=== PATIENT | male | born 1960 | race Caucasian/White ===

== ENCOUNTER 2017-09-20 01:21 | Emergency (ER) | payer OTHER ==
[2017-09-20] MEDS ORDERED: predniSONE 20 MG TAB PO STA (01:30)
[2017-09-20] MEDS ORDERED: IPRATROPIUM-ALBUTEROL 3 ML NEB INHALATION STA (01:30)
[2017-09-20] MEDS ORDERED: ALBUTEROL NEBULIZED 2.5 MG/3 ML INHALATION STA (01:30)
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
[2017-09-20 01:45] LABS: Basophils # (A) 0.2 k/uL (0-0.2); Basophils % (A) 2 %; Eosinophils # (A) 0.6 k/uL (0-0.7); Eosinophils % (A) 5 %; HCT 48.6 % (39.0-53.0); HGB 15.3 gm/dL (13.0-17.5); Lymphocytes # (A) 1.2 k/uL (1.0-4.8); Lymphocytes % (A) 10 %; MCH 27.9 pg (25.0-35.0); MCHC 31.5 g/dL (31.0-37.0); MCV 88.7 fL (80.0-100.0); Mean Platelet Volume 7.2; Monocytes # (A) 1.4 k/uL (0-1.0); Monocytes % (A) 11 %; Neutrophils # (A) 8.3 k/uL (1.3-7.7); Neutrophils % (A) 68 %; Platelet Count 273 k/uL (150-450); RBC 5.48 m/uL (4.30-5.90); RDW 14.5 % (11.5-15.5); WBC 12.2 k/uL (3.8-10.6)
[2017-09-20 01:51] LABS: D-Dimer 0.3 mg/L FEU (<0.60)
[2017-09-20 01:55] LABS: Partial Thromboplastin Time 23.5 sec (22.0-30.0); Prothrombin Time 9.8 sec (9.0-12.0)
[2017-09-20 01:56] LABS: ALT 49 U/L (21-72); AST 37 U/L (17-59); Albumin 4.3 g/dL (3.5-5.0); Alkaline Phosphatase 84 U/L (38-126); Anion Gap 12 mmol/L; Blood Urea Nitrogen 15 mg/dL (9-20); Calcium 9.6 mg/dL (8.4-10.2); Carbon Dioxide 32 mmol/L (22-30); Chloride 100 mmol/L (98-107); Glucose 117 mg/dL (74-99); Potassium 4.4 mmol/L (3.5-5.1); Sodium 144 mmol/L (137-145); Total Bilirubin 0.5 mg/dL (0.2-1.3); Total Protein 8.4 g/dL (6.3-8.2)
--- NOTE | 2017-09-20 02:14 | XR ---
EXAMINATION TYPE: XR chest 1V portable DATE OF EXAM: 09/20/2017 COMPARISON: 06/24/2016 HISTORY: Cough and congestion TECHNIQUE: Single frontal view of the chest is obtained. FINDINGS: There is no heart failure nor confluent pneumonic infiltrate. There is slight coarsening o f interstitial markings at the lung bases. There is no pleural effusion. There are chest leads. IMPRESSION: Mild fibrotic changes at the lung bases. No acute lung disease. No change.
[2017-09-20 02:44] LABS: Appearance,Urine Clear (Clear); Bilirubin,Urine Negative (Negative); Blood,Urine Small (Negative); Color,Urine Yellow; Glucose,Urine (UA) Negative (Negative); Hyaline Casts,Urine 88 /lpf (0-2); Ketones,Urine Negative (Negative); Leukocyte Esterase,Urine Negative (Negative); Mucus,Urine Rare /hpf; Nitrite,Urine Negative (Negative); PH, Urine 7.5 (5.0-8.0); Protein,Urine 2+ (Negative); RBC,Urine 10 /hpf (0-5); Specific Gravity,Urine 1.015 (1.001-1.035); Urobilinogen,Urine <2.0 mg/dL (<2.0)
[2017-09-20 04:18] VITALS: BP 142/80; PULSE 87; RESP 22; TEMP 98.2
== END 2017-09-20 04:17 | disposition home or self-care (01) ==
LOC: EC 01:21
DX: J44.9 Chronic obstructive pulmonary disease, unspecified (principal); F17.200 Nicotine dependence, unspecified, uncomplicated; Z79.51 Long term (current) use of inhaled steroids
CPT/HCPCS: 36415; 94640; 93005; 85379; 83880; 80053; 84484; 85025; 85610; 85730; 81001; 87502; 71045; 99285; J7512

== ENCOUNTER 2017-09-22 20:19 | Inpatient (IN) | payer OTHER ==
[2017-09-22] MEDS ORDERED: methylPREDNISolone SOD SUCCI 125 MG/2 ML VIAL IV STA (20:31)
[2017-09-22] MEDS ORDERED: SODIUM CHLORIDE 0.9% 500 ML IV STA (20:31)
[2017-09-22] MEDS ORDERED: MAGNESIUM SULFATE-D5W PMX 1 GM in DEXTROSE/WATER 1 100ML.BAG IVPB STA (20:31)
[2017-09-22] MEDS ORDERED: ALBUTEROL NEBULIZED 2.5 MG/3 ML INHALATION STA (20:31)
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
[2017-09-22 21:01] LABS: Basophils # (A) 0.1 k/uL (0-0.2); Basophils % (A) 1 %; Eosinophils # (A) 0.1 k/uL (0-0.7); Eosinophils % (A) 1 %; HCT 47.5 % (39.0-53.0); HGB 14.9 gm/dL (13.0-17.5); Lymphocytes # (A) 1.4 k/uL (1.0-4.8); Lymphocytes % (A) 10 %; MCH 28.2 pg (25.0-35.0); MCHC 31.4 g/dL (31.0-37.0); MCV 89.8 fL (80.0-100.0); Mean Platelet Volume 7.4; Monocytes # (A) 0.8 k/uL (0-1.0); Monocytes % (A) 6 %; Neutrophils % (A) 82 %; Platelet Count 296 k/uL (150-450); RBC 5.29 m/uL (4.30-5.90); RDW 14.7 % (11.5-15.5); WBC 13.5 k/uL (3.8-10.6)
[2017-09-22 21:12] LABS: ALT 57 U/L (21-72); AST 51 U/L (17-59); Albumin 4.2 g/dL (3.5-5.0); Alkaline Phosphatase 78 U/L (38-126); Anion Gap 10 mmol/L; Blood Urea Nitrogen 25 mg/dL (9-20); Calcium 9.4 mg/dL (8.4-10.2); Carbon Dioxide 31 mmol/L (22-30); Chloride 101 mmol/L (98-107); Glucose 142 mg/dL (74-99); Potassium 4.1 mmol/L (3.5-5.1); Sodium 142 mmol/L (137-145); Total Bilirubin 0.4 mg/dL (0.2-1.3); Total Protein 8.2 g/dL (6.3-8.2)
[2017-09-22 21:17] LABS: Creatine Kinase 886 U/L (55-170)
[2017-09-22 21:22] LABS: Partial Thromboplastin Time 23.4 sec (22.0-30.0); Prothrombin Time 9.8 sec (9.0-12.0)
[2017-09-22 21:30] LABS: Troponin I <0.012 ng/mL (0.000-0.034)
[2017-09-22 21:32] LABS: Creatine Kinase MB 3.9 ng/mL (0.0-2.4)
--- NOTE | 2017-09-22 21:32 | XR ---
EXAMINATION TYPE: XR chest 2V DATE OF EXAM: 09/22/2017 COMPARISON: Prior chest x-ray 09/20/2017 HISTORY: Difficulty breathing TECHNIQUE: Frontal and lateral views of the chest are obtained. FINDINGS: The patient is rotated. There are overlying cardiac leads. Some minimal blunting of the rig ht costophrenic angle suspected. There is no focal air space opacity or pneumothorax seen. The card iac silhouette size is within normal limits. Hyperinflation may be indicative of underlying COPD. Th e osseous structures are intact. IMPRESSION: Difficult to exclude small right effusion.
[2017-09-23] MEDS ORDERED: ACETAMINOPHEN TAB 500 MG TAB PO PRN (01:11)
[2017-09-23] MEDS ORDERED: ALPRAZolam 0.25 MG TAB PO PRN (01:11)
[2017-09-23] MEDS ORDERED: HYDROcodone/APAP 5-325MG 1 EACH TAB PO PRN (01:11)
[2017-09-23] MEDS: LEVOFLOXACIN 500MG-D5W PMX 500 MG in DEXTROSE/WATER 1 100ML.BAG IVPB SCH ×2 (02:12→22:13)
[2017-09-23] MEDS: methylPREDNISolone SOD SUCCI 125 MG/2 ML VIAL IV SCH ×5 (02:14→23:53)
[2017-09-23 05:43] LABS: Appearance,Urine Clear (Clear); Bilirubin,Urine Negative (Negative); Blood,Urine Small (Negative); Color,Urine Yellow; Glucose,Urine (UA) Negative (Negative); Ketones,Urine Negative (Negative); Leukocyte Esterase,Urine Negative (Negative); Mucus,Urine Rare /hpf; Nitrite,Urine Negative (Negative); PH, Urine 6.5 (5.0-8.0); Protein,Urine 1+ (Negative); RBC,Urine 6 /hpf (0-5); Specific Gravity,Urine 1.015 (1.001-1.035); Squamous Epithelial Cell,Urine <1 /hpf (0-4); Urobilinogen,Urine <2.0 mg/dL (<2.0)
[2017-09-23 06:03] LABS: Amphetamine Screen,Urine Not Detected (NotDetected); Barbiturate Screen,Urine Not Detected (NotDetected); Benzodiazepines Screen,Urine Not Detected (NotDetected); Cocaine Screen,Urine Not Detected (NotDetected); Methadone Screen, Urine Not Detected (NotDetected); Opiate Screen,Urine Not Detected (NotDetected); Oxycodone Screen, Urine Not Detected (NotDetected); Phencyclidine Screen,Urine Not Detected (NotDetected); Tricyclic Antidepressant,Urine Not Detected (NotDetected); Urn Cannabinoid Scrn Not Detected (NotDetected)
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
[2017-09-23] MEDS: BUDESONIDE 1 MG/2 ML NEBU INHALATION SCH ×2 (07:33→19:26)
[2017-09-23] MEDS: FORMOTEROL FUMARATE 20 MCG/2 ML NEBU INHALATION SCH ×2 (07:33→19:26)
[2017-09-23] MEDS: IPRATROPIUM-ALBUTEROL 3 ML NEB INHALATION SCH ×4 (07:33→19:26)
[2017-09-23 07:37] LABS: Glucose,Whole Blood 129 mg/dL (75-99)
[2017-09-23] MEDS: LISINOPRIL 10 MG TAB PO SCH (07:42)
[2017-09-23] MEDS: MULTIVITAMINS, THERA 1 EACH TAB PO SCH (07:42)
[2017-09-23] MEDS: HEPARIN SODIUM,PORCINE 5,000 UNIT/ML 1 ML VIAL SQ SCH ×2 (07:42→22:14)
[2017-09-23] MEDS: PANTOPRAZOLE 40 MG TABLET PO SCH (07:42)
[2017-09-23] MEDS: NICOTINE 21MG/24HR PATCH TRANSDERM SCH (07:42)
[2017-09-23] MEDS: amLODIPine 10 MG TAB PO SCH (07:42)
[2017-09-23] MEDS ORDERED: RX INFO: IV CONTRAST WAS GIVEN 1 EACH MISC MISCELLANE PRN (09:55)
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
--- NOTE | 2017-09-23 11:47 | CT ---
EXAMINATION TYPE: CT chest angio for PE DATE OF EXAM: 09/23/2017 COMPARISON: Radiograph 09/22/2017 HISTORY: 57-year-old male shortness of breath, evaluate for pneumonia or pulmonary embolus TECHNIQUE: Contiguous axial scanning of the chest performed with IV Contrast, patient injected with 1 00 mL of Omnipaque 350. Coronal/sagittal MIP reconstructions performed. CT DLP: 577 mGycm Automated exposure control for dose reduction was used. FINDINGS: The heart is normal size without pericardial effusion. Mild coronary artery calcifications are presen t. Mild atherosclerotic calcifications within the ascending aorta and aortic arch. There is conventional arterial vessel branching anatomy. Satisfactory opacification of the pulmonary arterial system without evidence for pulmonary embolus. No thoracic lymphadenopathy by CT size criteria. There is some patchy opacity peripheral right base and mild diffuse bronchial wall thickening. Mild c entrilobular emphysema in the upper lungs. No pleural effusion. Low density of the liver suggests hepatic steatosis. Bones: No osseous destructive process. IMPRESSION: 1. NO EVIDENCE FOR PULMONARY EMBOLUS. 2. SOME PATCHY ATELECTASIS VERSUS PNEUMONIA AT THE PERIPHERAL RIGHT BASE. CORRELATE FOR ANY INFECTIOU S RESPIRATORY SIGNS/SYMPTOMS. 3. COPD WITH MILD EMPHYSEMA. 4. HEPATIC STEATOSIS.
[2017-09-23] MEDS: INSULIN ASPART 100 UNIT/ML 1 ML 10 ML VIAL SQ SCH ×3 (12:38→22:14)
[2017-09-23 12:47] LABS: Glucose,Whole Blood 124 mg/dL (75-99)
[2017-09-23 17:25] LABS: Glucose,Whole Blood 221 mg/dL (75-99)
[2017-09-23 19:38] LABS: Hemoglobin A1C 6.1 % (4.0-6.0)
[2017-09-23 20:45] LABS: Glucose,Whole Blood 158 mg/dL (75-99)
[2017-09-23 21:53] LABS: Alternaria alternata IgE <0.10 kU/L; Birch IgE <0.10 kU/L; Cat Epith & Dander IgE <0.10 kU/L; Cockroach IgE <0.10 kU/L; Dermato. farinae IgE <0.10 kU/L; Dog Dander IgE <0.10 kU/L; Elm IgE <0.10 kU/L; Maple (Box Elder) IgE <0.10 kU/L; Oak IgE <0.10 kU/L; Ragweed,Common IgE <0.10 kU/L; Red Top (Bentgrass) IgE <0.10 kU/L
[2017-09-23] MEDS: MELATONIN 3 MG TABLET PO SCH (22:13)
[2017-09-23] MEDS: MONTELUKAST 10 MG TAB PO SCH (22:14)
[2017-09-24] MEDS: methylPREDNISolone SOD SUCCI 125 MG/2 ML VIAL IV SCH ×2 (05:44→11:07)
[2017-09-24] MEDS: IPRATROPIUM-ALBUTEROL 3 ML NEB INHALATION SCH ×4 (07:28→20:04)
[2017-09-24] MEDS: FORMOTEROL FUMARATE 20 MCG/2 ML NEBU INHALATION SCH ×2 (07:29→20:04)
[2017-09-24] MEDS: BUDESONIDE 1 MG/2 ML NEBU INHALATION SCH ×2 (07:29→20:04)
[2017-09-24 08:10] LABS: Glucose,Whole Blood 140 mg/dL (75-99)
[2017-09-24] MEDS: PANTOPRAZOLE 40 MG TABLET PO SCH (08:14)
[2017-09-24] MEDS: INSULIN ASPART 100 UNIT/ML 1 ML 10 ML VIAL SQ SCH ×4 (08:14→21:12)
[2017-09-24] MEDS: NICOTINE 21MG/24HR PATCH TRANSDERM SCH (08:15)
[2017-09-24] MEDS: HEPARIN SODIUM,PORCINE 5,000 UNIT/ML 1 ML VIAL SQ SCH ×2 (08:15→21:12)
[2017-09-24] MEDS: amLODIPine 10 MG TAB PO SCH (08:15)
[2017-09-24] MEDS: LISINOPRIL 10 MG TAB PO SCH (08:15)
[2017-09-24] MEDS: MULTIVITAMINS, THERA 1 EACH TAB PO SCH (08:15)
[2017-09-24 08:30] LABS: Basophils % (A) 0 %; Eosinophils % (A) 0 %; HCT 50.2 % (39.0-53.0); Lymphocytes # (A) 1.1 k/uL (1.0-4.8); Lymphocytes % (A) 6 %; MCH 27.3 pg (25.0-35.0); MCHC 29.8 g/dL (31.0-37.0); MCV 91.7 fL (80.0-100.0); Mean Platelet Volume 7.5; Monocytes # (A) 0.5 k/uL (0-1.0); Monocytes % (A) 3 %; Neutrophils # (A) 16.6 k/uL (1.3-7.7); Neutrophils % (A) 90 %; Platelet Count 317 k/uL (150-450); RBC 5.48 m/uL (4.30-5.90); RDW 14.6 % (11.5-15.5); WBC 18.3 k/uL (3.8-10.6)
[2017-09-24 08:42] LABS: Anion Gap 10 mmol/L; Blood Urea Nitrogen 24 mg/dL (9-20); Calcium 9.4 mg/dL (8.4-10.2); Carbon Dioxide 35 mmol/L (22-30); Chloride 98 mmol/L (98-107); Creatine Kinase 218 U/L (55-170); Glucose 144 mg/dL (74-99); Potassium 5.1 mmol/L (3.5-5.1); Sodium 143 mmol/L (137-145)
--- NOTE | 2017-09-24 10:09 | P.PN ---
Subjective Progress Note Date: 09/24/17 HPI: Patient seen and examined. Patient states that he has been short of breath and having trouble breathing for several weeks. He states recently he has become more short of breath and couldn't walk. He was last seen in my pulmonary office on 01/20/2017. He states he did move to [place] for a few months. He is using Symbicort twice a day. He was started on Spiriva however his insurance stopped covering it. He is also using his nebulizer 4-8 times per day. He states that he has a dry cough, chills, sweats. He is complaining of wheezing. He states he came to the ER on Thursday and convince them to discharge him home. He states he could not breathe and subsequently came back to the ER. The patient does admit that he quit smoking for 3 months and started smoking again one month ago. He had a pulmonary function test done which showed an FEV1 of 28% of predicted. The patient is also complaining of burning chest and chest tightness. He states "I feel different this time." Interval History: 09/24/17- patient seen and examined and evaluated today on rounds. He did have a CTA yesterday which showed no PE, patchy atelectasis versus pneumonia on the right base COPD with emphysema and hepatic steatosis. Upon examination today the patient is resting up in bed on 3 L of supplemental oxygen via nasal cannula. He feels his breathing is slightly improved. He does have a concentrator at home however does need portable oxygen we will try to arrange this for him. He continues to have some shortness of breath with exertion. He does have a cough with productive sputum. No labs and reports been reviewed. Objective - Vital Signs Vital signs: Vital Signs Temp 97.9 F 09/24/17 06:16 Pulse 104 H 09/24/17 07:50 Resp 18 09/24/17 06:16 BP 138/88 09/24/17 06:16 Pulse Ox 95 09/24/17 06:16 Intake & Output 09/23/17 09/24/17 09/24/17 18:59 06:59 18:59 Intake Total 100 Balance 100 Intake: Intake, IV Titration 100 Amount Levofloxacin 500Mg-D5w 100 Pmx 500 mg In Dextrose/ Water 1 100ml.bag @ 100 mls/hr IVPB HS [facility] Rx#: [id number] Other: # Voids 3 1 - Exam Gen.: Patient is alert and oriented 3, no acute distress, obese Cardiovascular: Regular rate and rhythm, S1/S2 Lungs: Diffuse bilateral wheezing with poor air movement Abdomen: Soft nontender nondistended positive bowel sounds Extremities: No edema - Labs CBC & Chem 7: 09/24/17 07:36 09/24/17 07:36 Labs: Abnormal Lab Results - Last 24 Hours (Table) 09/23/17 09/23/17 09/23/17 Range/Units 09:58 09:58 12:29 WBC (3.8-10.6) k/uL MCHC (31.0-37.0) g/dL Neutrophils # (1.3-7.7) k/uL Carbon Dioxide (22-30) mmol/L BUN (9-20) mg/dL Glucose (74-99) mg/dL POC Glucose (mg/dL) 124 H (75-99) mg/dL Hemoglobin A1c 6.1 H (4.0-6.0) % Creatine Kinase 603 H (55-170) U/L 09/23/17 09/23/17 09/24/17 Range/Units 17:23 20:36 07:22 WBC (3.8-10.6) k/uL MCHC (31.0-37.0) g/dL Neutrophils # (1.3-7.7) k/uL Carbon Dioxide (22-30) mmol/L BUN (9-20) mg/dL Glucose (74-99) mg/dL POC Glucose (mg/dL) 221 H 158 H 140 H (75-99) mg/dL Hemoglobin A1c (4.0-6.0) % Creatine Kinase (55-170) U/L 09/24/17 09/24/17 Range/Units 07:36 07:36 WBC 18.3 H (3.8-10.6) k/uL MCHC 29.8 L (31.0-37.0) g/dL Neutrophils # 16.6 H (1.3-7.7) k/uL Carbon Dioxide 35 H (22-30) mmol/L BUN 24 H (9-20) mg/dL Glucose 144 H (74-99) mg/dL POC Glucose (mg/dL) (75-99) mg/dL Hemoglobin A1c (4.0-6.0) % Creatine Kinase 218 H (55-170) U/L Microbiology - Last 24 Hours (Table) 09/22/17 21:14 Blood Culture - Preliminary Blood No Growth after 24 hours Assessment and Plan Assessment: Acute hypoxic respiratory failure Tracheobronchitis Acute exacerbation of COPD Acute exacerbation of severe persistent allergic asthma Small right pleural effusion, question parapneumonic Patient does have intermittent peripheral eosinophilia Leukocytosis Tobacco abuse Obesity Hypertension Psoriasis Dyspnea on exertion O2 to maintain saturation greater than or equal to 90% Ct chest reviewed with the patient Antibiotics: Levaquin Pulmicort Duo nebs Perforomist Singulair Smoking cessation Sputum culture, mycoplasma, haemophilus influenza- neg Reviewed IgE, HP/RAST panel Incentive spirometry, flutter marsha Crews TD GI and DVT prophylaxis I performed an examination of the patient and discussed their management with the nurse practitioner. I have reviewed the nurse practitioner's note and agree with the documented findings and plan of care.
--- NOTE | 2017-09-24 11:18 | XR ---
EXAMINATION TYPE: XR chest 1V portable DATE OF EXAM: 09/24/2017 Comparison: 09/22/2017 Clinical History: 57-year-old male follow-up pneumonia rt Findings: Heart upper limits of normal in size. Aorta and pulmonary vasculature are within normal limits. Hazy lower lung densities related to underpenetration and overlying soft tissue densities. No definite con solidation or pleural effusion seen on this portable frontal view. Impression: No acute cardiopulmonary process. Aeration at the peripheral right base shows some improvement thoug h assessment limited due to portable technique and large patient body habitus.
[2017-09-24 12:33] LABS: Glucose,Whole Blood 140 mg/dL (75-99)
[2017-09-24] MEDS: methylPREDNISolone SOD SUCCI 40 MG/ML 1 ML VIAL IV SCH (15:35)
[2017-09-24 17:22] LABS: Glucose,Whole Blood 166 mg/dL (75-99)
[2017-09-24 20:57] LABS: Glucose,Whole Blood 201 mg/dL (75-99)
[2017-09-24] MEDS ORDERED: TEMAZEPAM 15 MG CAP PO SCH (21:00)
[2017-09-24] MEDS ORDERED: LEVOFLOXACIN 500 MG TAB PO SCH (21:00)
[2017-09-24] MEDS: MELATONIN 3 MG TABLET PO SCH (21:12)
[2017-09-24] MEDS: MONTELUKAST 10 MG TAB PO SCH (21:12)
--- NOTE | 2017-09-24 22:01 | P.PN ---
Subjective Progress Note Date: 09/23/17 Progress note being dictated for Dr. Varela. Interval history: This is a 57-year-old gentleman admitted with acute COPD exacerbation with acute purulent tracheobronchitis and multiple other medical issues. Maintained on nebulized bronchodilators, steroids, Levaquin. Poor air entry- O2 sats on room air 85-87%, O2 sats low 90s on 3 L nasal cannula. Chest CT oriented Objective - Vital Signs Vital signs: Vital Signs Temp 97.8 F 09/23/17 15:00 Pulse 101 H 09/23/17 15:44 Resp 18 09/23/17 15:00 BP 157/90 09/23/17 15:00 Pulse Ox 94 L 09/23/17 15:28 Intake & Output 09/22/17 09/23/17 09/23/17 18:59 06:59 18:59 Intake Total 700 Output Total 400 Balance 300 Weight 113.398 kg Intake: Amount of Fluid Infused ( 700 ml) Output: Urine 400 Other: # Voids 3 - Exam PHYSICAL EXAM: VITAL SIGNS: As above GENERAL: Sitting up in bed, no acute distress HEENT: Conjunctivae normal. eyes normal. NECK: No JVD. No thyroid enlargement. No LNs CARDIOVASCULAR: S1, S2 muffled. No murmur RESPIRATION: Breath sounds diminished in the bases. Poor air entry, scattered expiratory wheezing bilateral. ABDOMEN: Soft, nontender . No guarding. no masses palpable.Bowel sounds heard. LEGS: No edema. no swelling PSYCHIATRY: Alert and oriented -3, mood and affect normal. NERVOUS SYSTEM: Cranial N 2-12 grossly normal. Moves all 4 limbs. Diffuse weakness No focal deficits. Skin: no ulcer no rash Joints: No active swelling. No inflammation. Lymphatic system. No LN neck axilla or groin. Microbiology 09/22/17 21:14 Blood Blood Culture - Preliminary No Growth after 24 hours - Labs CBC & Chem 7: 09/24/17 07:36 09/24/17 07:36 Labs: Abnormal Lab Results - Last 24 Hours (Table) 09/22/17 09/22/17 09/22/17 Range/Units 20:50 20:50 20:50 WBC 13.5 H (3.8-10.6) k/uL Neutrophils # 11.0 H (1.3-7.7) k/uL Carbon Dioxide 31 H (22-30) mmol/L BUN 25 H (9-20) mg/dL Glucose 142 H (74-99) mg/dL POC Glucose (mg/dL) (75-99) mg/dL Creatine Kinase (55-170) U/L Total Creatine Kinase 886 H (55-170) U/L CK-MB (CK-2) 3.9 H* (0.0-2.4) ng/mL Urine Protein (Negative) Urine Blood (Negative) Urine RBC (0-5) /hpf Urine Mucus (None) /hpf 09/23/17 09/23/17 09/23/17 Range/Units 02:00 07:33 09:58 WBC (3.8-10.6) k/uL Neutrophils # (1.3-7.7) k/uL Carbon Dioxide (22-30) mmol/L BUN (9-20) mg/dL Glucose (74-99) mg/dL POC Glucose (mg/dL) 129 H (75-99) mg/dL Creatine Kinase 603 H (55-170) U/L Total Creatine Kinase (55-170) U/L CK-MB (CK-2) (0.0-2.4) ng/mL Urine Protein 1+ H (Negative) Urine Blood Small H (Negative) Urine RBC 6 H (0-5) /hpf Urine Mucus Rare H (None) /hpf 09/23/17 09/23/17 Range/Units 12:29 17:23 WBC (3.8-10.6) k/uL Neutrophils # (1.3-7.7) k/uL Carbon Dioxide (22-30) mmol/L BUN (9-20) mg/dL Glucose (74-99) mg/dL POC Glucose (mg/dL) 124 H 221 H (75-99) mg/dL Creatine Kinase (55-170) U/L Total Creatine Kinase (55-170) U/L CK-MB (CK-2) (0.0-2.4) ng/mL Urine Protein (Negative) Urine Blood (Negative) Urine RBC (0-5) /hpf Urine Mucus (None) /hpf Assessment and Plan Assessment: 1. Acute COPD exacerbation with purulent tracheobronchitis 2. Small pleural effusion 3.Leukocytosis 4. Ongoing nicotine dependence 5. Increased creatinine kinase 6. Obesity, BMI 38 Plan: Continue on current medication regime ,monitoring and symptomatic treatment, maintain nebulized bronchodilators, systemic steroids, antibiotics. Chest CT pending, sputum culture ordered Follow closely with pulmonary. Smoking cessation readdressed. Increase ambulation as tolerated. Further recommendations to follow. The impression and plan of care has been dictated as directed. : I performed a history and examination of this patient, discussed the same with the dictator. I agree with the dictator's note ,documented as a scribe. Any additional findings or plans will be noted.
--- NOTE | 2017-09-24 22:08 | P.PN ---
Subjective Progress Note Date: 09/24/17 Progress note being dictated for Dr. Varela. Interval history: This is a 57-year-old gentleman admitted with acute COPD exacerbation with acute purulent tracheobronchitis and multiple other medical issues. Maintained on nebulized bronchodilators, steroids, Levaquin. Poor air entry- O2 sats on room air 85-87%, O2 sats low 90s on 3 L nasal cannula. Chest CT oriented 09/24/17 yesterday while ambulating patient desatted to 85% on room air, followed by 87% on room air after ambulation. Less wheezing today- breathing slowly improving. Productive cough. Maintaining O2 sats in the low to mid 90s on 3 L nasal cannula with mild tachycardia. CTA ruled out PE, reported patchy atelectasis versus right basilar pneumonia, emphysema and hepatic steatosis. Chest x-ray reporting improvement. Objective - Vital Signs Vital signs: Vital Signs Temp 98.1 F 09/24/17 14:02 Pulse 97 09/24/17 15:48 Resp 18 09/24/17 14:02 BP 116/74 09/24/17 14:02 Pulse Ox 93 L 09/24/17 14:02 Intake & Output 09/23/17 09/24/17 09/24/17 18:59 06:59 18:59 Intake Total 100 Balance 100 Intake: Intake, IV Titration 100 Amount Levofloxacin 500Mg-D5w 100 Pmx 500 mg In Dextrose/ Water 1 100ml.bag @ 100 mls/hr IVPB HS FRANCISCA Rx#: [id number] Other: # Voids 3 1 1 - Exam PHYSICAL EXAM: VITAL SIGNS: As above GENERAL: Sitting up in bed, no acute distress HEENT: Conjunctivae normal. eyes normal. NECK: No JVD. No thyroid enlargement. No LNs CARDIOVASCULAR: S1, S2 muffled. No murmur RESPIRATION: Breath sounds diminished in the bases. Rhonchorous with less expiratory wheezing bilateral. ABDOMEN: Soft, nontender . No guarding. no masses palpable.Bowel sounds heard. LEGS: No edema. no swelling PSYCHIATRY: Alert and oriented -3, mood and affect normal. NERVOUS SYSTEM: Cranial N 2-12 grossly normal. Moves all 4 limbs. Diffuse weakness No focal deficits. Skin: no ulcer no rash Joints: No active swelling. No inflammation. Lymphatic system. No LN neck axilla or groin. - Labs CBC & Chem 7: 02/22/18 07:36 09/24/17 07:36 Labs: Abnormal Lab Results - Last 24 Hours (Table) 09/23/17 09/23/17 09/23/17 Range/Units 09:58 17:23 20:36 WBC (3.8-10.6) k/uL MCHC (31.0-37.0) g/dL Neutrophils # (1.3-7.7) k/uL Carbon Dioxide (22-30) mmol/L BUN (9-20) mg/dL Glucose (74-99) mg/dL POC Glucose (mg/dL) 221 H 158 H (75-99) mg/dL Hemoglobin A1c 6.1 H (4.0-6.0) % Creatine Kinase (55-170) U/L 09/24/17 09/24/17 09/24/17 Range/Units 07:22 07:36 07:36 WBC 18.3 H (3.8-10.6) k/uL MCHC 29.8 L (31.0-37.0) g/dL Neutrophils # 16.6 H (1.3-7.7) k/uL Carbon Dioxide 35 H (22-30) mmol/L BUN 24 H (9-20) mg/dL Glucose 144 H (74-99) mg/dL POC Glucose (mg/dL) 140 H (75-99) mg/dL Hemoglobin A1c (4.0-6.0) % Creatine Kinase 218 H (55-170) U/L 09/24/17 Range/Units 12:32 WBC (3.8-10.6) k/uL MCHC (31.0-37.0) g/dL Neutrophils # (1.3-7.7) k/uL Carbon Dioxide (22-30) mmol/L BUN (9-20) mg/dL Glucose (74-99) mg/dL POC Glucose (mg/dL) 140 H (75-99) mg/dL Hemoglobin A1c (4.0-6.0) % Creatine Kinase (55-170) U/L Microbiology - Last 24 Hours (Table) 09/22/17 21:14 Blood Culture - Preliminary Blood No Growth after 24 hours Assessment and Plan Assessment: 1. Acute COPD exacerbation with purulent tracheobronchitis 2. Small pleural effusion 3.Leukocytosis 4. Ongoing nicotine dependence 5. Increased creatinine kinase 6. Obesity, BMI 38 Plan: Continue on current medication regime ,monitoring and symptomatic treatment, maintain nebulized bronchodilators, systemic steroids, antibiotics. Smoking cessation readdressed. Increase ambulation as tolerated. Sputum culture ordered. The impression and plan of care has been dictated as directed. : I performed a history and examination of this patient, discussed the same with the dictator. I agree with the dictator's note ,documented as a scribe. Any additional findings or plans will be noted.
[2017-09-25] MEDS: methylPREDNISolone SOD SUCCI 40 MG/ML 1 ML VIAL IV SCH ×3 (00:26→15:51)
[2017-09-25 05:29] LABS: Mycoplasma IgM Antibody 0.43 INDEX (<=0.90)
[2017-09-25 07:30] LABS: Glucose,Whole Blood 146 mg/dL (75-99)
[2017-09-25 07:31] VITALS: RESP 18
[2017-09-25] MEDS: FORMOTEROL FUMARATE 20 MCG/2 ML NEBU INHALATION SCH (07:35)
[2017-09-25] MEDS: IPRATROPIUM-ALBUTEROL 3 ML NEB INHALATION SCH ×3 (07:36→15:55)
[2017-09-25] MEDS: BUDESONIDE 1 MG/2 ML NEBU INHALATION SCH (07:36)
[2017-09-25] MEDS: INSULIN ASPART 100 UNIT/ML 1 ML 10 ML VIAL SQ SCH ×3 (07:47→17:58)
[2017-09-25] MEDS: PANTOPRAZOLE 40 MG TABLET PO SCH (07:48)
[2017-09-25] MEDS: HEPARIN SODIUM,PORCINE 5,000 UNIT/ML 1 ML VIAL SQ SCH (07:48)
[2017-09-25] MEDS: MULTIVITAMINS, THERA 1 EACH TAB PO SCH (07:48)
[2017-09-25] MEDS: LISINOPRIL 10 MG TAB PO SCH (07:48)
[2017-09-25] MEDS: NICOTINE 21MG/24HR PATCH TRANSDERM SCH (07:48)
[2017-09-25] MEDS: amLODIPine 10 MG TAB PO SCH (07:48)
[2017-09-25 08:50] LABS: Basophils % (A) 0 %; Eosinophils % (A) 0 %; HCT 48.5 % (39.0-53.0); HGB 14.9 gm/dL (13.0-17.5); Hypochromasia Slight; Lymphocytes # (A) 1.2 k/uL (1.0-4.8); Lymphocytes % (A) 5 %; MCHC 30.7 g/dL (31.0-37.0); MCV 91.3 fL (80.0-100.0); Mean Platelet Volume 7.5; Monocytes # (A) 0.8 k/uL (0-1.0); Monocytes % (A) 4 %; Neutrophils # (A) 19.8 k/uL (1.3-7.7); Neutrophils % (A) 90 %; Platelet Count 310 k/uL (150-450); RBC 5.32 m/uL (4.30-5.90); RDW 14.6 % (11.5-15.5); WBC 21.9 k/uL (3.8-10.6)
[2017-09-25 08:51] LABS: Anion Gap 8 mmol/L; Blood Urea Nitrogen 26 mg/dL (9-20); Calcium 9.2 mg/dL (8.4-10.2); Carbon Dioxide 36 mmol/L (22-30); Chloride 100 mmol/L (98-107); Creatine Kinase 145 U/L (55-170); Glucose 130 mg/dL (74-99); Potassium 5.2 mmol/L (3.5-5.1); Sodium 144 mmol/L (137-145)
[2017-09-25] MEDS ORDERED: INFLUENZA VACCINE (6 MOS+) 60 MCG/0.5 ML SYRINGE IM ONE (09:00)
--- NOTE | 2017-09-25 11:32 | P.PN ---
Subjective Progress Note Date: 09/25/17 HPI: Patient seen and examined. Patient states that he has been short of breath and having trouble breathing for several weeks. He states recently he has become more short of breath and couldn't walk. He was last seen in my pulmonary office on 01/20/2017. He states he did move to [place] for a few months. He is using Symbicort twice a day. He was started on Spiriva however his insurance stopped covering it. He is also using his nebulizer 4-8 times per day. He states that he has a dry cough, chills, sweats. He is complaining of wheezing. He states he came to the ER on Thursday and convince them to discharge him home. He states he could not breathe and subsequently came back to the ER. The patient does admit that he quit smoking for 3 months and started smoking again one month ago. He had a pulmonary function test done which showed an FEV1 of 28% of predicted. The patient is also complaining of burning chest and chest tightness. He states "I feel different this time." Interval History: 09/24/17- patient seen and examined and evaluated today on rounds. He did have a CTA yesterday which showed no PE, patchy atelectasis versus pneumonia on the right base COPD with emphysema and hepatic steatosis. Upon examination today the patient is resting up in bed on 3 L of supplemental oxygen via nasal cannula. He feels his breathing is slightly improved. He does have a concentrator at home however does need portable oxygen we will try to arrange this for him. He continues to have some shortness of breath with exertion. He does have a cough with productive sputum. All labs and reports been reviewed. 09/25/17- patient is seen and examined and evaluated today on rounds. He is resting up in bed on 3 L of supplemental oxygen via nasal cannula. He states he still continues to get short of breath with exertion and activity. States his cough has been better and still produces some white sputum. He does not feel his breathing is at his baseline. Objective - Vital Signs Vital signs: Vital Signs Temp 98.2 F 09/25/17 07:00 Pulse 100 09/25/17 11:21 Resp 18 09/25/17 07:00 BP 147/78 09/25/17 07:00 Pulse Ox 96 09/25/17 07:00 Intake & Output 09/24/17 09/25/17 09/25/17 18:59 06:59 18:59 Intake Total 980 Balance 980 Intake: Oral 980 Other: # Voids 1 1 - Exam Gen.: Patient is alert and oriented 3, no acute distress, obese Cardiovascular: Regular rate and rhythm, S1/S2 Lungs: Diffuse bilateral wheezing with poor air movement Abdomen: Soft nontender nondistended positive bowel sounds Extremities: No edema - Labs CBC & Chem 7: 09/25/17 07:57 09/25/17 07:57 Labs: Abnormal Lab Results - Last 24 Hours (Table) 09/23/17 09/24/17 09/24/17 Range/Units 10:03 12:32 17:16 WBC (3.8-10.6) k/uL MCHC (31.0-37.0) g/dL Neutrophils # (1.3-7.7) k/uL Potassium (3.5-5.1) mmol/L Carbon Dioxide (22-30) mmol/L BUN (9-20) mg/dL Glucose (74-99) mg/dL POC Glucose (mg/dL) 140 H 166 H (75-99) mg/dL Mycoplasma pneumon IgG 1.63 H (<=0.90) INDEX 09/24/17 09/25/17 09/25/17 Range/Units 20:30 07:25 07:57 WBC 21.9 H (3.8-10.6) k/uL MCHC 30.7 L (31.0-37.0) g/dL Neutrophils # 19.8 H (1.3-7.7) k/uL Potassium (3.5-5.1) mmol/L Carbon Dioxide (22-30) mmol/L BUN (9-20) mg/dL Glucose (74-99) mg/dL POC Glucose (mg/dL) 201 H 146 H (75-99) mg/dL Mycoplasma pneumon IgG (<=0.90) INDEX 09/25/17 Range/Units 07:57 WBC (3.8-10.6) k/uL MCHC (31.0-37.0) g/dL Neutrophils # (1.3-7.7) k/uL Potassium 5.2 H (3.5-5.1) mmol/L Carbon Dioxide 36 H (22-30) mmol/L BUN 26 H (9-20) mg/dL Glucose 130 H (74-99) mg/dL POC Glucose (mg/dL) (75-99) mg/dL Mycoplasma pneumon IgG (<=0.90) INDEX Microbiology - Last 24 Hours (Table) 09/22/17 21:14 Blood Culture - Preliminary Blood No Growth after 48 hours Assessment and Plan Assessment: Acute hypoxic respiratory failure Tracheobronchitis Acute exacerbation of COPD Acute exacerbation of severe persistent allergic asthma Small right pleural effusion, question parapneumonic Patient does have intermittent peripheral eosinophilia Leukocytosis Tobacco abuse Obesity Hypertension Psoriasis Dyspnea on exertion O2 to maintain saturation greater than or equal to 90% Home oxygen assessment Ct chest reviewed with the patient Antibiotics: Levaquin Steroid taper Pulmicort Duo nebs Perforomist Singulair Smoking cessation Sputum culture pending, mycoplasma, haemophilus influenza- neg Reviewed IgE, HP/RAST panel Incentive spirometry, flutter tx Nicorehan RODRIGUEZ GI and DVT prophylaxis I performed an examination of the patient and discussed their management with the nurse practitioner. I have reviewed the nurse practitioner's note and agree with the documented findings and plan of care.
[2017-09-25 12:19] LABS: Glucose,Whole Blood 200 mg/dL (75-99)
[2017-09-25 16:42] VITALS: BP 147/77; PULSE 97; TEMP 99.1
[2017-09-25 17:26] LABS: Glucose,Whole Blood 179 mg/dL (75-99)
--- NOTE | 2017-09-25 21:09 | DS ---
DISCHARGE SUMMARY DATE OF SERVICE: 09/25/2017 FINAL DIAGNOSES: 1. Chronic obstructive pulmonary disease acute exacerbation with acute purulent tracheobronchitis. 2. Small pleural effusion. 3. Leukocytosis. 4. Ongoing nicotine dependence. 5. Increased creatinine kinase. 6. Obesity, body mass of 38. DISCHARGE DISPOSITION: The patient is being discharged in stable condition with guarded prognosis. HISTORY OF PRESENT ILLNESS: This 57-year-old gentleman who presented with multiple medical problems, being followed by Dr. Wheatley in the outpatient setting, was admitted with COPD acute exacerbation with acute purulent tracheobronchitis. Patient treated with bronchodilators and steroids and IV antibiotics with Dr. Phyllis Doyle. Patient improved significantly. PHYSICAL EXAMINATION: On exam, vitals are stable. Cardiovascular System: S1, S2. Respirations: A few rhonchi. Abdomen soft. Nervous system: No focal deficits. DISCHARGE ADVICE AND MEDICATIONS: 1. Diet is cardiac diet. 2. Activity limited until followup. 3. Follow up with Dr. Wheatley in 2-3 days. 4. Follow up with Dr. Doyle as recommended. MEDICATIONS ARE: 1. Tylenol 500 mg q.6h p.r.n. 2. Ventolin q.i.d. and p.r.n. 3. Norvasc 10 mg p.o. daily. 4. Symbicort 160/4.5 two puffs b.i.d. 5. DuoNeb q.i.d. and p.r.n. 6. Home O2. 7. Levaquin 500 mg p.o. q.h.s. for 5 days. 8. Zestril 10 mg p.o. daily. 9. Singular 10 mg q.h.s. 10.Multivitamins 1 p.o. daily. 11.Lipitor 21 daily. 12.Prednisone taper that will be 40 mg daily for 3 days, 30 mg for 3 days, 20 for 3 days, 10 for 3 days and then stop. MMODL / IJN: [id number] /
[2017-09-29 21:40] LABS: Alternaria Alternata IgG 9.2 mcg/mL (< 13.6); Aspergillus fumigatus IgG Not detected (Not detected); Aureobasidium pullulans IgG 10.1 mcg/mL (< 13.6); Cladosporium herbarium IgG 43.6 mcg/mL (< 14.7); Phoma ssp. IgG 16.6 mcg/mL (< 6.6); Saccaharomospora viridis Not detected (Not detected); Saccaharopoly. rectivirgula Not detected (Not detected)
== END 2017-09-25 19:18 | disposition home or self-care (01) | DRG 190 ==
LOC: EC 20:19 → 4MS4W 22:48
PROVIDERS: ADMIT Hospitalist; ATTEND Hospitalist
DX: J44.1 Chronic obstructive pulmonary disease with (acute) exacerbation (principal); J96.01 Acute respiratory failure with hypoxia; J90 Pleural effusion, not elsewhere classified; E66.9 Obesity, unspecified; F17.200 Nicotine dependence, unspecified, uncomplicated; I10 Essential (primary) hypertension; L40.9 Psoriasis, unspecified; D72.1 Eosinophilia; M19.90 Unspecified osteoarthritis, unspecified site; M54.2 Cervicalgia; R07.89 Other chest pain; J20.9 Acute bronchitis, unspecified; J45.50 Severe persistent asthma, uncomplicated; Z68.38 Body mass index [BMI] 38.0-38.9, adult; Z79.51 Long term (current) use of inhaled steroids; Z79.52 Long term (current) use of systemic steroids; Z79.899 Other long term (current) drug therapy; Z87.820 Personal history of traumatic brain injury
CPT/HCPCS: 36415; 71045; 71046; 71275; 80048; 80053; 80306; 81001; 82550; 82553; 82785; 83036; 83735; 83880; 84484; 85025; 85610; 85730; 86001; 86003; 86606; 86609; 86684; 86738; 87040; 87070; 87205; 87502; 90686; 93005; 94640; 94644; 94667; 94760; 96365; 96375; 99291

== ENCOUNTER 2020-05-30 19:09 | Inpatient (IN) | payer OTHER ==
[2020-05-30 19:34] LABS: Glucose,Whole Blood 536 mg/dL (75-99)
[2020-05-30 19:37] LABS: Glucose,Whole Blood 530 mg/dL (75-99)
[2020-05-30 19:54] LABS: Basophils # (A) 0.1 k/uL (0-0.2); Basophils % (A) 1 %; Eosinophils # (A) 0.1 k/uL (0-0.7); Eosinophils % (A) 1 %; HCT 45.3 % (39.0-53.0); HGB 14.4 gm/dL (13.0-17.5); Lymphocytes # (A) 2.5 k/uL (1.0-4.8); Lymphocytes % (A) 17 %; MCH 27.7 pg (25.0-35.0); MCHC 31.8 g/dL (31.0-37.0); MCV 86.9 fL (80.0-100.0); Mean Platelet Volume 7.9; Monocytes # (A) 0.9 k/uL (0-1.0); Monocytes % (A) 6 %; Neutrophils # (A) 10.5 k/uL (1.3-7.7); Neutrophils % (A) 73 %; Platelet Count 385 k/uL (150-450); RBC 5.21 m/uL (4.30-5.90); RDW 14.5 % (11.5-15.5); WBC 14.3 k/uL (3.8-10.6)
[2020-05-30 20:08] LABS: INR 0.9 (<1.2)
[2020-05-30 20:09] LABS: D-Dimer 0.28 mg/L FEU (<0.60); Partial Thromboplastin Time 22.1 sec (22.0-30.0); Prothrombin Time 9.5 sec (9.0-12.0)
[2020-05-30 20:14] LABS: Albumin 4.5 g/dL (3.5-5.0); Calcium 9.7 mg/dL (8.4-10.2); Total Bilirubin 0.4 mg/dL (0.2-1.3); Total Protein 8.1 g/dL (6.3-8.2)
--- NOTE | 2020-05-30 20:22 | XR ---
EXAMINATION TYPE: XR chest 2V DATE OF EXAM: 05/30/2020 COMPARISON: 07/29/2019 HISTORY: Short of breath TECHNIQUE: FINDINGS: Heart is normal. Lungs are clear of infiltrate. There is no heart failure. Costophrenic ang les are clear. Bony thorax is intact. IMPRESSION: No active cardiopulmonary disease. Normal heart. No change.
[2020-05-30] MEDS ORDERED: SODIUM CHLORIDE 0.9% 1,000 ML IV ONE (21:02)
[2020-05-30] MEDS ORDERED: INSULIN REGULAR 100 UNIT/ML VIAL SQ ONE (21:03)
[2020-05-30] MEDS ORDERED: IPRATROPIUM-ALBUTEROL 3 ML NEB INHALATION STA (21:27)
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
--- NOTE | 2020-05-30 21:30 | CT ---
EXAMINATION TYPE: CT chest angio for PE DATE OF EXAM: 05/30/2020 COMPARISON: 09/23/2017 HISTORY: cough, SOB CT DLP: 749.3 mGycm Automated exposure control for dose reduction was used. CONTRAST: Performed with IV Contrast, patient injected with 83cc mL of Isovue 370. There are 3-D post processed images. The lungs are clear of consolidation. There is no pleural effusion. There is mild subsegmental atelec tasis in the anterior right upper lobe. There is no evidence of a pulmonary mass. There is fatty infi ltration of the liver. Liver appears enlarged. Heart size is normal. There is no pericardial effusion. There is normal contrast opacification of the pulmonary arteries. There are no filling defects. Thoracic vertebra have normal spacing and alignmen t. There is no compression fracture. Sternum is intact. The ribs appear intact. Thoracic aorta is int act. IMPRESSION: Negative exam. No evidence of pulmonary embolism. Fatty infiltration of the liver and hepatomegaly. No change.
[2020-05-30 21:50] LABS: Appearance,Urine Clear (Clear); Bilirubin,Urine Negative (Negative); Blood,Urine Negative (Negative); Color,Urine Light Yellow; Glucose,Urine (UA) 4+ (Negative); Ketones,Urine Negative (Negative); Leukocyte Esterase,Urine Negative (Negative); Nitrite,Urine Negative (Negative); PH, Urine 5.5 (5.0-8.0); Protein,Urine Negative (Negative); Urobilinogen,Urine <2.0 mg/dL (<2.0)
[2020-05-30] MEDS ORDERED: cefTRIAXone IN SWFI 1,000 MG/10 ML SYRINGE IVP STA (21:53)
[2020-05-30] MEDS ORDERED: ALBUTEROL HFA INHALER INHALATION ONE (22:00)
[2020-05-30] MEDS ORDERED: NALOXONE 0.4 MG/ML 1 ML VIAL IV PRN (22:07)
[2020-05-30] MEDS: SODIUM CHLORIDE 0.9% 1,000 ML IV SCH (22:43)
[2020-05-30 22:51] LABS: Glucose,Whole Blood 381 mg/dL (75-99)
[2020-05-31] MEDS ORDERED: ACETAMINOPHEN TAB 325 MG TAB PO PRN (03:23)
[2020-05-31 06:29] LABS: Glucose,Whole Blood 294 mg/dL (75-99)
[2020-05-31] MEDS ORDERED: INSULIN ASPART (NovoLOG) 100 UNIT/ML VIAL SQ SCH (07:30)
[2020-05-31] MEDS ORDERED: ALBUTEROL HFA INHALER INHALATION PRN (08:00)
[2020-05-31] MEDS: amLODIPine 10 MG TAB PO SCH (08:27)
[2020-05-31] MEDS: lisinopriL 10 MG TAB PO SCH (08:27)
[2020-05-31] MEDS: HEPARIN SODIUM,PORCINE 5,000 UNIT/ML 1 ML VIAL SQ SCH ×2 (08:28→20:58)
[2020-05-31] MEDS: FAMOTIDINE 20 MG/2 ML VIAL IV SCH ×2 (08:28→20:58)
[2020-05-31 08:54] LABS: Basophils # (A) 0.1 k/uL (0-0.2); Basophils % (A) 1 %; Eosinophils # (A) 0.3 k/uL (0-0.7); Eosinophils % (A) 2 %; HCT 41.1 % (39.0-53.0); HGB 13.3 gm/dL (13.0-17.5); Lymphocytes % (A) 19 %; MCH 28.3 pg (25.0-35.0); MCHC 32.4 g/dL (31.0-37.0); MCV 87.4 fL (80.0-100.0); Mean Platelet Volume 7.7; Monocytes # (A) 0.6 k/uL (0-1.0); Monocytes % (A) 6 %; Neutrophils # (A) 7.7 k/uL (1.3-7.7); Neutrophils % (A) 71 %; Platelet Count 293 k/uL (150-450); RDW 14.5 % (11.5-15.5); WBC 10.8 k/uL (3.8-10.6)
[2020-05-31 09:44] LABS: African American GFR (CKD) >90 (>60 ml/min/1.73 sqM); Anion Gap 9 mmol/L; Blood Urea Nitrogen 26 mg/dL (9-20); Calcium 8.8 mg/dL (8.4-10.2); Carbon Dioxide 27 mmol/L (22-30); Chloride 99 mmol/L (98-107); Glucose 364 mg/dL (74-99); Non-African American GFR(CKD) 79 (>60 ml/min/1.73 sqM); Sodium 135 mmol/L (137-145)
[2020-05-31 10:21] LABS: Albumin 3.7 g/dL (3.5-5.0); Bilirubin, Delta 0.1 mg/dL (0.0-0.2); Bilirubin,Unconjugated 0.3 mg/dL (0.0-1.1); Total Bilirubin 0.4 mg/dL (0.2-1.3); Total Protein 6.9 g/dL (6.3-8.2)
[2020-05-31] MEDS ORDERED: INSULIN REGULAR BOLUS (FROM DRIP BAG) IV ONE (10:22)
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
[2020-05-31] MEDS ORDERED: HEPARIN SODIUM,PORCINE 5,000 UNIT/ML 1 ML VIAL SQ SCH (10:45)
[2020-05-31] MEDS ORDERED: INSULIN DETEMIR (LEVEMIR) 100 UNIT/ML SYR SQ SCH (10:51)
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
[2020-05-31 11:39] LABS: Glucose,Whole Blood 334 mg/dL (75-99)
[2020-05-31 11:51] LABS: Cholesterol 147 mg/dL (<200); HDL Cholesterol 26 mg/dL (40-60); LDL Cholesterol,Calculated 63 mg/dL (0-99); Triglycerides 290 mg/dL (<150)
[2020-05-31] MEDS: SODIUM CHLORIDE 0.9% 1,000 ML IV SCH ×2 (11:59→20:59)
[2020-05-31] MEDS: INSULIN REGULAR 100 UNIT in SODIUM CHLORIDE 0.9% 100 ML IV SCH ×2 (12:03→23:20)
--- NOTE | 2020-05-31 12:05 | ECHOF ---
Referral Reason:sob MEASUREMENTS -------- HEIGHT: 175.3 cm WEIGHT: 117.0 kg BP: RVIDd: 4.5 cm (< 3.3) IVSd: 1.0 cm (0.6 - 1.1) LVIDd: 4.9 cm (3.9 - 5.3) LVPWd: 1.0 cm (0.6 - 1.1) IVSs: 0.9 cm LVIDs: 3.7 cm LVPWs: 1.5 cm FINDINGS -------- Sinus rhythm. This was a techncally difficult study with suboptimal views, , Lumason utilized for enhancement of im ages. LV size, wall thickness and systolic function are normal, with an EF greater than 55%. The left mark tricular size is normal. Overall left ventricular systolic function is low-normal with, an EF betwe en 50 - 55 %. The right ventricle is moderate to severely enlarged. The left atrium was not well visualized. The right atrium is normal in size. The aortic valve was not well visualized. The mitral valve was not well visualized. The tricuspid valve was not well visualized. The pulmonic valve was not well visualized. There is no pericardial effusion. CONCLUSIONS -------- 1. This was a techncally difficult study with suboptimal views, , Lumason utilized for enhancement of images. 2. LV size, wall thickness and systolic function are normal, with an EF greater than 55%. 3. The left ventricular size is normal. 4. Overall left ventricular systolic function is low-normal with, an EF between 50 - 55 %. 5. The right ventricle is moderate to severely enlarged. 6. The left atrium was not well visualized. 7. The right atrium is normal in size. 8. The aortic valve was not well visualized. 9. The mitral valve was not well visualized. 10. The tricuspid valve was not well visualized. 11. The pulmonic valve was not well visualized. 12. There is no pericardial effusion. MIDWIFE: Miriam Cole RDCS
[2020-05-31] MEDS: AZITHROMYCIN 500 MG TAB PO SCH (12:15)
[2020-05-31] MEDS: methylPREDNISolone SOD SUCCI 125 MG/2 ML VIAL IV SCH ×3 (12:15→23:13)
[2020-05-31 12:29] LABS: Glucose,Whole Blood 321 mg/dL (75-99)
[2020-05-31 13:09] LABS: Glucose,Whole Blood 248 mg/dL (75-99)
[2020-05-31] MEDS ORDERED: IPRATROPIUM-ALBUTEROL 3 ML NEB INHALATION PRN (13:18)
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
[2020-05-31 15:07] LABS: Glucose,Whole Blood 262 mg/dL (75-99)
[2020-05-31] MEDS: IPRATROPIUM-ALBUTEROL 3 ML NEB INHALATION SCH ×2 (15:28→19:22)
[2020-05-31 16:53] LABS: Glucose,Whole Blood 208 mg/dL (75-99)
[2020-05-31 17:40] LABS: Hemoglobin A1C 13.3 % (4.0-6.0)
[2020-05-31] MEDS: BUDESONIDE 1 MG/2 ML NEBU INHALATION SCH (19:22)
[2020-05-31] MEDS: FORMOTEROL FUMARATE 20 MCG/2 ML NEBU INHALATION SCH (19:22)
[2020-05-31 19:26] LABS: Glucose,Whole Blood 294 mg/dL (75-99)
[2020-05-31] MEDS: ATORVASTATIN 40 MG TAB PO SCH (20:58)
[2020-05-31] MEDS ORDERED: ATORVASTATIN 20 MG TAB PO SCH (21:00)
[2020-05-31 21:12] LABS: Glucose,Whole Blood 329 mg/dL (75-99)
[2020-05-31 23:14] LABS: Glucose,Whole Blood 316 mg/dL (75-99)
[2020-06-01 01:03] LABS: Glucose,Whole Blood 353 mg/dL (75-99)
[2020-06-01 03:25] LABS: Glucose,Whole Blood 242 mg/dL (75-99)
[2020-06-01 05:05] LABS: Glucose,Whole Blood 197 mg/dL (75-99)
[2020-06-01] MEDS: INSULIN REGULAR 100 UNIT in SODIUM CHLORIDE 0.9% 100 ML IV SCH ×3 (05:13→22:13)
[2020-06-01] MEDS: SODIUM CHLORIDE 0.9% 1,000 ML IV SCH (05:13)
[2020-06-01] MEDS: methylPREDNISolone SOD SUCCI 125 MG/2 ML VIAL IV SCH ×3 (05:13→17:33)
[2020-06-01 07:09] LABS: African American GFR (CKD) >90 (>60 ml/min/1.73 sqM); Anion Gap 7 mmol/L; Blood Urea Nitrogen 20 mg/dL (9-20); Calcium 9.1 mg/dL (8.4-10.2); Carbon Dioxide 25 mmol/L (22-30); Chloride 105 mmol/L (98-107); Glucose 217 mg/dL (74-99); Non-African American GFR(CKD) >90 (>60 ml/min/1.73 sqM); Sodium 137 mmol/L (137-145)
[2020-06-01 07:16] LABS: Glucose,Whole Blood 211 mg/dL (75-99)
[2020-06-01] MEDS: FORMOTEROL FUMARATE 20 MCG/2 ML NEBU INHALATION SCH ×2 (07:54→20:31)
[2020-06-01] MEDS: BUDESONIDE 1 MG/2 ML NEBU INHALATION SCH ×2 (07:54→20:31)
[2020-06-01] MEDS: IPRATROPIUM-ALBUTEROL 3 ML NEB INHALATION SCH ×4 (07:54→20:31)
[2020-06-01] MEDS: AZITHROMYCIN 500 MG TAB PO SCH (09:11)
[2020-06-01] MEDS: lisinopriL 10 MG TAB PO SCH (09:11)
[2020-06-01] MEDS: amLODIPine 10 MG TAB PO SCH (09:11)
[2020-06-01] MEDS: FAMOTIDINE 20 MG TAB PO SCH ×2 (09:11→20:31)
[2020-06-01] MEDS: HEPARIN SODIUM,PORCINE 5,000 UNIT/ML 1 ML VIAL SQ SCH ×2 (09:11→20:31)
[2020-06-01 09:19] LABS: Glucose,Whole Blood 340 mg/dL (75-99)
--- NOTE | 2020-06-01 09:41 | P.PN ---
Subjective This is a pleasant 59 years old male with past medical history of COPD, diabetes mellitus, psoriasis nicotine dependence. Presents because of dyspnea, polyuria/polydipsia and hyperglycemia. Patient is a known case of COPD, he quit smoking 4 years ago, he follows up with Dr. Carvajal his student loan counselor who did a virtual visit with him 3 days ago and prescribed him taper steroids, patient notes since that he has drinking a lot of water and penile at for the last 3 weeks [place] glucometer from a friend and checked his sugar noticed to be high so I decided to come to emergency room. Also patient was complaining of from dyspnea with some white coughing with the total amount of pinkish coloration suspicious for blood Patient also on home oxygen about 2 L/m Vital signs stable and he is saturating 98% on 4 L oxygen via nasal cannula. Afebrile. He has mild leukocytosis with WBC 14.3 K. INR is normal at 0.9, d- dimer is negative at 0.28. Glucose is elevated at 381, to 94, serial troponins 3 are negative with less than 0.012. Glucose was uncontrolled at 559 upon admission. are slightly elevated with AST at 65 and ALT at 149 proBNP is normal at 22. Creatinine is elevated at 1. Urine analysis is not suspicious of infection. Influenza is not detected. Covid test is pending EKG showing sinus tachycardia at [address]-T CTA of the chest: No pulmonary embolism, lungs are clear to consolidation, no pleural effusion, fatty infiltration of the liver Chest x-ray: No active cardiopulmonary disease In the emergency room patient received 1 L bolus of normal saline and continued on 100 mL per hour, also received insulin, ceftriaxone and albuterol 06/01/2020 Patient remains short of breath, this morning he was feeling better on BiPAP machine He is saturating 97% in 3 tabs oxygen via nasal cannula. There is a Vitas looks stable. BMP from today's unremarkable, sugar slightly elevated to 11-340, while patient is on steroids, d-dimer is negative at 0.28 He remains on insulin drip, also his MEDROL 60 MG ON ZITHROMAX AND NORMAL SINUS 75 ML/H, WE WILL DISCONTINUE IV FLUIDS Review of Systems CONSTITUTIONAL: No fever, no malaise, no fatigue. HEENT: No recent visual problems or hearing problems. Denied any sore throat. CARDIOVASCULAR: No orthopnea, PND, no palpitations, no syncope. PULMONARY: No chest wall tenderness, no hemoptysis. GASTROINTESTINAL: No diarrhea, no nausea, no vomiting, no abdominal pain. Normoactive bowel sounds. NEUROLOGICAL: No headaches, no weakness, no numbness. HEMATOLOGICAL: Denies any bleeding or petechiae. GENITOURINARY: Denies any burning micturition, frequency, or urgency. Active Medications Generic Name Dose Route Start Last Admin Trade Name Freq PRN Reason Stop Dose Admin Acetaminophen 650 mg 05/31/20 03:23 05/31/20 03:39 Acetaminophen Tab 325 Mg Tab PO 650 mg Q4HR PRN Administration Fever and/ or Pain Albuterol Sulfate 2 puff 05/31/20 08:00 05/31/20 07:20 Albuterol Hfa Inhaler INHALATION 2 puff RT-QID PRN Administration Shortness Of Breath Or Wheezing Albuterol/Ipratropium 3 ml 05/31/20 16:00 06/01/20 07:54 Ipratropium-Albuterol 3 Ml Neb INHALATION 3 ml RT-QID [facility] Administration Albuterol/Ipratropium 3 ml 05/31/20 13:18 05/31/20 13:36 Ipratropium-Albuterol 3 Ml Neb INHALATION 3 ml RT-Q2H PRN Administration Shortness Of Breath Or Wheezing Amlodipine Besylate 10 mg 05/31/20 09:00 06/01/20 09:11 Amlodipine 10 Mg Tab PO 10 mg DAILY [facility] Administration Atorvastatin Calcium 40 mg 05/31/20 21:00 05/31/20 20:58 Atorvastatin 40 Mg Tab PO 40 mg HS FR[facility]ISCA Administration Azithromycin 500 mg 05/31/20 10:30 06/01/20 09:11 Azithromycin 500 Mg Tab PO 500 mg DAILY FR[facility]ISCA Administration Budesonide 1 mg 05/31/20 20:00 06/01/20 07:54 Budesonide 1 Mg/2 Ml Nebu INHALATION 1 mg RT-BID FR[facility]ISCA Administration Famotidine 20 mg 06/01/20 09:00 06/01/20 09:11 Famotidine 20 Mg Tab PO 20 mg Q12HR [facility] Administration Formoterol Fumarate 20 mcg 05/31/20 20:00 06/01/20 07:54 Formoterol Fumarate 20 Mcg/2 Ml Nebu INHALATION 20 mcg RT-BID FR[facility]ISCA Administration Heparin Sodium (Porcine) 5,000 unit 05/31/20 09:00 06/01/20 09:11 Heparin Sodium,Porcine 5,000 Unit/Ml 1 Ml Vial SQ 5,000 unit Q12HR [facility] Administration Sodium Chloride 1,000 mls @ 75 mls/hr 05/30/20 22:15 06/01/20 05:13 Saline 0.9% IV 75 mls/hr .[id number] FRANCISCA Administration Insulin Human Regular 100 unit 101 mls @ 0 mls/hr 05/31/20 10:30 06/01/20 09:10 / Sodium Chloride IV 16 units/hr .Q0M [facility] 16.16 mls/hr Titration Protocol Titrate Lisinopril 10 mg 05/31/20 09:00 06/01/20 09:11 Lisinopril 10 Mg Tab PO 10 mg DAILY FR[facility]IS[facility] Administration Methylprednisolone Sodium Succinate 60 mg 05/31/20 12:00 06/01/20 05:13 Methylprednisolone Sod Succi 125 Mg/2 Ml Vial IV 60 mg Q6HR [facility] Administration Naloxone HCl 0.2 mg 05/30/20 22:07 Naloxone 0.4 Mg/Ml 1 Ml Vial IV Q2M PRN Opioid Reversal Objective - Vital Signs Vital signs: Vital Signs Temp 97.7 F 06/01/20 09:00 Pulse 93 06/01/20 09:00 Resp 16 06/01/20 09:00 BP 149/87 06/01/20 09:00 Pulse Ox 97 06/01/20 09:00 Intake & Output 05/31/20 06/01/20 06/01/20 18:59 06:59 18:59 Intake Total 503.294 122.002 145.873 Output Total 300 Balance 203.294 122.002 145.873 Weight 117.3 kg Intake: Intake, IV Titration 59.294 122.002 25.873 Amount Insulin Regular 100 unit 59.294 122.002 25.873 In Sodium Chloride 0.9% 100 ml @ Titrate IV .Q0M [facility] Rx#:[id number] Oral 444 120 Output: Urine 300 Other: Voiding Method Urinal Urinal # Voids 3 1 - Exam -GENERAL: The patient is alert and oriented x3, not in any acute distress. Obese HEENT: Pupils are round and equally reacting to light. EOMI. No scleral icterus. No conjunctival pallor. Normocephalic, atraumatic. No pharyngeal erythema. No thyromegaly. CARDIOVASCULAR: S1 and S2 present. No murmurs, rubs, or gallops. -PULMONARY: Chest is clear to auscultation, bilateral scattered wheezing . No crackles. Decreased air entry on both sides. Barrel shaped chest ABDOMEN: Soft, nontender, nondistended, normoactive bowel sounds. No palpable organomegaly. MUSCULOSKELETAL: No joint swelling or deformity. EXTREMITIES: No cyanosis, clubbing, or pedal edema. NEUROLOGICAL: Gross neurological examination did not reveal any focal deficits. SKIN: No rashes. No petechiae - Labs CBC & Chem 7: 05/31/20 07:52 06/01/20 06:21 Labs: Abnormal Lab Results - Last 24 Hours (Table) 05/30/20 05/31/20 05/31/20 Range/Units 23:18 07:52 07:52 Sodium 135 L (137-145) mmol/L BUN 26 H (9-20) mg/dL Glucose 364 H (74-99) mg/dL POC Glucose (mg/dL) (75-99) mg/dL Hemoglobin A1c 13.3 H (4.0-6.0) % ALT 129 H (4-49) U/L Triglycerides 290 H (<150) mg/dL HDL Cholesterol 26 L (40-60) mg/dL 05/31/20 05/31/20 05/31/20 Range/Units 11:38 12:28 13:07 Sodium (137-145) mmol/L BUN (9-20) mg/dL Glucose (74-99) mg/dL POC Glucose (mg/dL) 334 H 321 H 248 H (75-99) mg/dL Hemoglobin A1c (4.0-6.0) % ALT (4-49) U/L Triglycerides (<150) mg/dL HDL Cholesterol (40-60) mg/dL 05/31/20 05/31/20 05/31/20 Range/Units 15:05 16:52 19:23 Sodium (137-145) mmol/L BUN (9-20) mg/dL Glucose (74-99) mg/dL POC Glucose (mg/dL) 262 H 208 H 294 H (75-99) mg/dL Hemoglobin A1c (4.0-6.0) % ALT (4-49) U/L Triglycerides (<150) mg/dL HDL Cholesterol (40-60) mg/dL 05/31/20 05/31/20 06/01/20 Range/Units 21:02 23:01 01:00 Sodium (137-145) mmol/L BUN (9-20) mg/dL Glucose (74-99) mg/dL POC Glucose (mg/dL) 329 H 316 H 353 H (75-99) mg/dL Hemoglobin A1c (4.0-6.0) % ALT (4-49) U/L Triglycerides (<150) mg/dL HDL Cholesterol (40-60) mg/dL 06/01/20 06/01/20 06/01/20 Range/Units 03:24 05:03 06:21 Sodium (137-145) mmol/L BUN (9-20) mg/dL Glucose 217 H (74-99) mg/dL POC Glucose (mg/dL) 242 H 197 H (75-99) mg/dL Hemoglobin A1c (4.0-6.0) % ALT (4-49) U/L Triglycerides (<150) mg/dL HDL Cholesterol (40-60) mg/dL 06/01/20 06/01/20 Range/Units 07:15 09:07 Sodium (137-145) mmol/L BUN (9-20) mg/dL Glucose (74-99) mg/dL POC Glucose (mg/dL) 211 H 340 H (75-99) mg/dL Hemoglobin A1c (4.0-6.0) % ALT (4-49) U/L Triglycerides (<150) mg/dL HDL Cholesterol (40-60) mg/dL Assessment and Plan Assessment: Acute COPD exacerbation , with dyspnea and coughing blood Acute on chronic hypoxic respiratory failure Hyperglycemia, check hemoglobin A1c. Probably new-onset diabetes acute kidney injury Elevated liver enzymes Nicotine dependence History of psoriasis Plan: This is a pleasant 59 years old male with possible COPD.Follow-up with pulmonary consult, continue with steroids, bronchodilator and antibiotic. Send sputum culture. Continue with insulin sliding scale and check hemoglobin A1c. Check liver enzymes Continue with IV fluid Labs and medication were reviewed.. Continue same treatment. Continue with symptomatic treatment. Resume home medication. Monitor lytes and vitals. DVT and GI prophylaxis. Further recommendations depends on the clinical course of the patient DVT prophylaxis: Subcutaneous heparin GI Prophylaxis: Pepcid
[2020-06-01 11:09] LABS: Glucose,Whole Blood 311 mg/dL (75-99)
--- NOTE | 2020-06-01 12:07 | P.PN ---
Subjective Progress Note Date: 06/01/20 this is a 59-year-old gentleman with history of COPD, on home O2, obstructive sleep apnea, prior nicotine dependence, psoriasis, no prior documented history of coronary artery disease, hyperlipidemia. He presented to the hospital with symptoms of worsening shortness of breath with associated chest pain that the patient was experiencing with coughing. Apparently the symptoms have started approximately one week prior to the patient coming into the hospital.the patient was seen in consultation by Dr. Simmons yesterday,EKG did not show any acute changes, sinus tachycardia with an incomplete right bundle branch block pattern. Troponins were negative 3.echo cardiogram with Doppler study revealed an ej ection fraction of 50-55%.the patient was seen and examined this morning, still complains of mild shortness of breath, denies any chest pain at present, but does state that his chest hurts when he coughs.blood pressure 148/80 with a heart rate of 90, 97% on 3 L of oxygen.sodium 137, potassium 5.0, BUN 20, creatinine 0.7. Objective - Vital Signs Vital signs: Vital Signs Temp 97.7 F 06/01/20 09:00 Pulse 93 06/01/20 09:00 Resp 16 06/01/20 09:00 BP 149/87 06/01/20 09:00 Pulse Ox 97 06/01/20 09:00 Intake & Output 05/31/20 06/01/20 06/01/20 18:59 06:59 18:59 Intake Total 503.294 122.002 179.001 Output Total 300 Balance 203.294 122.002 179.001 Weight 117.3 kg 117.3 kg Intake: Intake, IV Titration 59.294 122.002 59.001 Amount Insulin Regular 100 unit 59.294 122.002 59.001 In Sodium Chloride 0.9% 100 ml @ Titrate IV .Q0M [facility] Rx#:[id number] Oral 444 120 Output: Urine 300 Other: Voiding Method Urinal Urinal Urinal # Voids 3 1 - Exam CONSTITUTIONAL: No apparent distress. HEENT: Head is normocephalic. Pupils are equal, round. Sclerae anicteric. Mucous membranes of the mouth are moist. No JVD. No carotid bruit. CHEST EXAMINATION: Lungs are clear to auscultation. No chest wall tenderness is noted on palpation or with deep breathing. Diminished bilaterally. HEART EXAMINATION: Regular rate and rhythm. S1, S2 heard. No murmurs, gallops or rub. ABDOMEN: Soft, nontender. Positive bowel sounds. EXTREMITIES: 2+ peripheral pulses, no lower extremity edema and no calf tenderness. NEUROLOGIC EXAMINATION: Patient is awake, alert and oriented x3. - Labs CBC & Chem 7: 05/31/20 07:52 06/01/20 06:21 Labs: Abnormal Lab Results - Last 24 Hours (Table) 05/30/20 05/31/20 05/31/20 Range/Units 23:18 12:28 13:07 Glucose (74-99) mg/dL POC Glucose (mg/dL) 321 H 248 H (75-99) mg/dL Hemoglobin A1c 13.3 H (4.0-6.0) % 05/31/20 05/31/20 05/31/20 Range/Units 15:05 16:52 19:23 Glucose (74-99) mg/dL POC Glucose (mg/dL) 262 H 208 H 294 H (75-99) mg/dL Hemoglobin A1c (4.0-6.0) % 05/31/20 05/31/20 06/01/20 Range/Units 21:02 23:01 01:00 Glucose (74-99) mg/dL POC Glucose (mg/dL) 329 H 316 H 353 H (75-99) mg/dL Hemoglobin A1c (4.0-6.0) % 06/01/20 06/01/20 06/01/20 Range/Units 03:24 05:03 06:21 Glucose 217 H (74-99) mg/dL POC Glucose (mg/dL) 242 H 197 H (75-99) mg/dL Hemoglobin A1c (4.0-6.0) % 06/01/20 06/01/20 06/01/20 Range/Units 07:15 09:07 11:07 Glucose (74-99) mg/dL POC Glucose (mg/dL) 211 H 340 H 311 H (75-99) mg/dL Hemoglobin A1c (4.0-6.0) % Assessment and Plan Plan: ASSESSMENT AND PLAN #1Acute exacerbation of COPDwith purulent tracheobronchitis #2Pleuritic chest pain, atypical for acute coronary syndrome, troponins were negative 3, EKG did not show any significant changes, echo showed normal LV function. #3Suspected diabetes mellitus, new onset #4Hypertension #5Dyslipidemia #6Former nicotine dependence Plan from cardiology's perspective, we will follow this patient along with you now on an as-needed basis only, we will make him a follow-up appointment with Dr. Schofield in the office post discharge. DNP note has been reviewed, I agree with a documented findings and plan of care. Patient was seen and examined.
[2020-06-01 13:01] LABS: Glucose,Whole Blood 358 mg/dL (75-99)
--- NOTE | 2020-06-01 14:23 | P.PN ---
Subjective Progress Note Date: 06/01/20 59-year-old male patient with known history of COPD with chronic hypoxic respir atory failure usually on 3 L of oxygen at home [id number], obstructive sleep apnea on CPAP on APAP 511, former smoker, baseline FEV1 of 30%, psoriasis, who came into the emergency department on 05/22/2020 with complaints of worsening shortness of breath, chest pain with coughing and small amount of hemoptysis. Onset of symptoms was a week ago, he is producing the sputum which at times has a small amount of pink tinged blood. Patient was placed on steroids, and he noticed his blood sugars have been running extremely elevated. Patient denies history of diabetes. No swelling in lower extremities, no fever or chills, has been using his nebulizers without significant improvement. His been compliant with his CPAP at night. Patient is maintained on Qvar, DuoNeb, Singulair at home. Chest x-ray showed no active cardiopulmonary disease. CT chest showed no evidence of pulmonary embolism, it showed a fatty infiltration of the liver and hepatomegaly. His blood work showed white blood cell count of 14.3, hemoglobin is 14.4, coagulation profile was within normal limits, d-dimer is negative at 0.28, sodium is 132, potassium 5.0, chloride is 95, B1 is 27, creatinine is 1.29, serum glucose was 559 on admission, plasma lactic acid is 1.5, troponins were less than 0.0123, LFTs were elevated with AST of 65, ALT is 149, alkaline phosphatase of 141, urinalysis showed 4+ glucose but negative for any sign of infection, influenza screen is negative, COVID19 is pending. Patient was started on azithromycin and Rocephin, nebulized medical diabetes and we'll set the patient on IV steroids. We started on insulin infusion 06/01/2020, the patient is feeling better. He is slightly less short of breath compared to yesterday. The patient was started on IV Solu Medrol regarding her COPD exacerbation. The patient was also started on insulin drip for blood sugar control as the patient became quite hyperglycemic while being on systemic steroids. The patient also on DuoNeb nebulized treatment [id number]. He is utilizing his CPAP machine overnight in regards to his obstructive sleep apnea. Note that, the patient was also checked for coronavirus Covid 19 infection and the results are still pending for now. He remains on examination Rocephin and Zithromax. He remains afebrile. Blood sugars under tighter control for now. No chest pain. No leukocytosis. Objective - Vital Signs Vital signs: Vital Signs Temp 97.7 F 06/01/20 09:00 Pulse 93 06/01/20 12:10 Resp 16 06/01/20 12:10 BP 160/79 06/01/20 12:10 Pulse Ox 98 06/01/20 12:10 Intake & Output 05/31/20 06/01/20 06/01/20 18:59 06:59 18:59 Intake Total 503.294 122.002 473.898 Output Total 300 Balance 203.294 122.002 473.898 Weight 117.3 kg 117.3 kg Intake: Intake, IV Titration 59.294 122.002 233.898 Amount Insulin Regular 100 unit 59.294 122.002 83.898 In Sodium Chloride 0.9% 100 ml @ Titrate IV .Q0M [facility] Rx#:[id number] Sodium Chloride 0.9% 1, 150 000 ml @ 75 mls/hr IV . [id number] [facility] Rx#:[id number] Oral 444 240 Output: Urine 300 Other: Voiding Method Urinal Urinal Urinal # Voids 3 1 1 # Bowel Movements 0 - Exam GENERAL EXAM: Alert, very pleasant 59 y.o obese male patient comfortable in no apparent distress. HEAD: Normocephalic/atraumatic. EYES: Normal reaction of pupils, equal size. Conjunctiva pink, sclera white. NOSE: Clear with pink turbinates. THROAT: No erythema or exudates. NECK: No masses, no JVD, no thyroid enlargement, no adenopathy. CHEST: No chest wall deformity. Symmetrical expansion. LUNGS: Equal air entry with no crackles, wheeze, rhonchi or dullness. CVS: Regular rate and rhythm, normal S1 and S2, no gallops, no murmurs, no rubs ABDOMEN: Soft, nontender. No hepatosplenomegaly, normal bowel sounds, no guarding or rigidity. EXTREMITIES: No clubbing, no edema, no cyanosis, 2+ pulses and upper and lower extremities. MUSCULOSKELETAL: Muscle strength and tone normal. SPINE: No scoliosis or deformity SKIN: No rashes CENTRAL NERVOUS SYSTEM: Alert and oriented -3. No focal deficits, tone is normal in all 4 extremities. PSYCHIATRIC: Alert and oriented -3. Appropriate affect. Intact judgment and insight. - Labs CBC & Chem 7: 05/31/20 07:52 06/01/20 06:21 Labs: Abnormal Lab Results - Last 24 Hours (Table) 05/30/20 05/31/20 05/31/20 Range/Units 23:18 15:05 16:52 Glucose (74-99) mg/dL POC Glucose (mg/dL) 262 H 208 H (75-99) mg/dL Hemoglobin A1c 13.3 H (4.0-6.0) % 05/31/20 05/31/20 05/31/20 Range/Units 19:23 21:02 23:01 Glucose (74-99) mg/dL POC Glucose (mg/dL) 294 H 329 H 316 H (75-99) mg/dL Hemoglobin A1c (4.0-6.0) % 06/01/20 06/01/20 06/01/20 Range/Units 01:00 03:24 05:03 Glucose (74-99) mg/dL POC Glucose (mg/dL) 353 H 242 H 197 H (75-99) mg/dL Hemoglobin A1c (4.0-6.0) % 06/01/20 06/01/20 06/01/20 Range/Units 06:21 07:15 09:07 Glucose 217 H (74-99) mg/dL POC Glucose (mg/dL) 211 H 340 H (75-99) mg/dL Hemoglobin A1c (4.0-6.0) % 06/01/20 06/01/20 Range/Units 11:07 12:54 Glucose (74-99) mg/dL POC Glucose (mg/dL) 311 H 358 H (75-99) mg/dL Hemoglobin A1c (4.0-6.0) % Microbiology - Last 24 Hours (Table) 06/01/20 08:15 Sputum Culture - Preliminary Sputum Assessment and Plan Plan: #1. Acute exacerbation of chronic obstructive pulmonary disease with purulent tracheobronchitis with secondary dyspnea, improving. The patient is on examination bronchodilators and systemic steroids. The patient is also covered with empiric antibiotics and accommodation Rocephin and Zithromax. Awaiting the sow virus Covid 19 PCR screening #2. Limited hemoptysis related to tracheal bronchitis, CTA chest showed no evidence of pulmonary embolism, or consolidation. The patient has not had any further episodes of hemoptysis. #3. Steroid-induced hyperglycemia with symptoms of polyuria and polydipsia, currently on insulin drip for blood sugar control #4. Acute kidney injury, recovered and the patient's renal function is normalized. #5. Advanced COPD with baseline FEV1 of 30%, on home oxygen at 3 L/m #6. Ex-smoker, currently in remission #7. Psoriasis #8 obstructive sleep apnea maintained on CPAP on outpatient basis with adequate compliance Plan Care treatment for another 24 hours with systemic steroids. Continue CPAP overnight Insulin drip for blood sugar control DuoNeb nebulized treatments around the clock We will arrange Advair or this patient to be utilized on outpatient basis and this will be set of Qvar or Pulmicort We'll continue to follow. Clinically improved.
[2020-06-01 15:25] LABS: Glucose,Whole Blood 358 mg/dL (75-99)
[2020-06-01 17:19] LABS: Glucose,Whole Blood 289 mg/dL (75-99)
[2020-06-01 19:16] LABS: Glucose,Whole Blood 376 mg/dL (75-99)
[2020-06-01] MEDS: ATORVASTATIN 40 MG TAB PO SCH (20:31)
[2020-06-01 21:04] LABS: Glucose,Whole Blood 301 mg/dL (75-99)
[2020-06-01 23:06] LABS: Glucose,Whole Blood 316 mg/dL (75-99)
[2020-06-02] MEDS: methylPREDNISolone SOD SUCCI 125 MG/2 ML VIAL IV SCH ×5 (01:02→23:28)
[2020-06-02 01:07] LABS: Glucose,Whole Blood 318 mg/dL (75-99)
[2020-06-02 03:18] LABS: Glucose,Whole Blood 245 mg/dL (75-99)
[2020-06-02 05:14] LABS: Glucose,Whole Blood 152 mg/dL (75-99)
[2020-06-02 06:59] LABS: Glucose,Whole Blood 241 mg/dL (75-99)
[2020-06-02] MEDS: INSULIN REGULAR 100 UNIT in SODIUM CHLORIDE 0.9% 100 ML IV SCH ×3 (07:01→23:30)
[2020-06-02] MEDS: IPRATROPIUM-ALBUTEROL 3 ML NEB INHALATION SCH ×4 (08:02→19:16)
[2020-06-02] MEDS: BUDESONIDE 1 MG/2 ML NEBU INHALATION SCH ×2 (08:02→19:16)
[2020-06-02] MEDS: FORMOTEROL FUMARATE 20 MCG/2 ML NEBU INHALATION SCH ×2 (08:02→19:16)
[2020-06-02 08:31] LABS: African American GFR (CKD) >90 (>60 ml/min/1.73 sqM); Anion Gap 7 mmol/L; Blood Urea Nitrogen 24 mg/dL (9-20); Calcium 9.4 mg/dL (8.4-10.2); Carbon Dioxide 28 mmol/L (22-30); Chloride 105 mmol/L (98-107); Glucose 249 mg/dL (74-99); Non-African American GFR(CKD) >90 (>60 ml/min/1.73 sqM); Sodium 140 mmol/L (137-145)
[2020-06-02] MEDS: HEPARIN SODIUM,PORCINE 5,000 UNIT/ML 1 ML VIAL SQ SCH ×2 (08:56→20:42)
[2020-06-02] MEDS: AZITHROMYCIN 500 MG TAB PO SCH (08:56)
[2020-06-02] MEDS: lisinopriL 10 MG TAB PO SCH (08:56)
[2020-06-02] MEDS: amLODIPine 10 MG TAB PO SCH (08:56)
[2020-06-02] MEDS: FAMOTIDINE 20 MG TAB PO SCH ×2 (08:56→20:42)
[2020-06-02 09:24] LABS: Glucose,Whole Blood 472 mg/dL (75-99)
[2020-06-02 11:16] LABS: Glucose,Whole Blood 297 mg/dL (75-99)
[2020-06-02 13:10] LABS: Glucose,Whole Blood 290 mg/dL (75-99)
--- NOTE | 2020-06-02 13:38 | P.PN ---
Subjective Progress Note Date: 06/02/20 59-year-old male patient with known history of COPD with chronic hypoxic respir atory failure usually on 3 L of oxygen at home [id number], obstructive sleep apnea on CPAP on APAP 511, former smoker, baseline FEV1 of 30%, psoriasis, who came into the emergency department on 05/22/2020 with complaints of worsening shortness of breath, chest pain with coughing and small amount of hemoptysis. Onset of symptoms was a week ago, he is producing the sputum which at times has a small amount of pink tinged blood. Patient was placed on steroids, and he noticed his blood sugars have been running extremely elevated. Patient denies history of diabetes. No swelling in lower extremities, no fever or chills, has been using his nebulizers without significant improvement. His been compliant with his CPAP at night. Patient is maintained on Qvar, DuoNeb, Singulair at home. Chest x-ray showed no active cardiopulmonary disease. CT chest showed no evidence of pulmonary embolism, it showed a fatty infiltration of the liver and hepatomegaly. His blood work showed white blood cell count of 14.3, hemoglobin is 14.4, coagulation profile was within normal limits, d-dimer is negative at 0.28, sodium is 132, potassium 5.0, chloride is 95, B1 is 27, creatinine is 1.29, serum glucose was 559 on admission, plasma lactic acid is 1.5, troponins were less than 0.0123, LFTs were elevated with AST of 65, ALT is 149, alkaline phosphatase of 141, urinalysis showed 4+ glucose but negative for any sign of infection, influenza screen is negative, COVID19 is pending. Patient was started on azithromycin and Rocephin, nebulized medical diabetes and we'll set the patient on IV steroids. We started on insulin infusion 06/01/2020, the patient is feeling better. He is slightly less short of breath compared to yesterday. The patient was started on IV Solu Medrol regarding her COPD exacerbation. The patient was also started on insulin drip for blood sugar control as the patient became quite hyperglycemic while being on systemic steroids. The patient also on DuoNeb nebulized treatment [id number]. He is utilizing his CPAP machine overnight in regards to his obstructive sleep apnea. Note that, the patient was also checked for coronavirus Covid 19 infection and the results are still pending for now. He remains on examination Rocephin and Zithromax. He remains afebrile. Blood sugars under tighter control for now. No chest pain. No leukocytosis. 06/02/2020, the patient is on IV Solu-Medrol. He remains on DuoNeb nebulized treatments around the clock. Shortness of breath is gradually improving. No chest pain. No swelling lower extremities. He remains on insulin drip for blood sugar control. No other significant events overnight. He is still being treated for COPD exacerbation and recommended another 24 hours of treatment with IV Solu Medrol. Objective - Vital Signs Vital signs: Vital Signs Temp 98.3 F 06/02/20 11:30 Pulse 82 06/02/20 11:41 Resp 20 06/02/20 11:30 BP 123/60 06/02/20 11:30 Pulse Ox 92 L 06/02/20 11:30 Intake & Output 06/01/20 06/02/20 06/02/20 18:59 06:59 18:59 Intake Total 731.000 177.153 65.937 Balance 731.000 177.153 65.937 Weight 117.3 kg 117.2 kg Intake: Intake, IV Titration 251.000 177.153 65.937 Amount Insulin Regular 100 unit 101.000 177.153 65.937 In Sodium Chloride 0.9% 100 ml @ Titrate IV .Q0M [facility] Rx#:[id number] Sodium Chloride 0.9% 1, 150 000 ml @ 75 mls/hr IV . [id number] [facility] Rx#:[id number] Oral 480 Other: Voiding Method Urinal Urinal Urinal # Voids 1 2 # Bowel Movements 0 - Exam GENERAL EXAM: Alert, very pleasant 59 y.o obese male patient comfortable in no apparent distress. HEAD: Normocephalic/atraumatic. EYES: Normal reaction of pupils, equal size. Conjunctiva pink, sclera white. NOSE: Clear with pink turbinates. THROAT: No erythema or exudates. NECK: No masses, no JVD, no thyroid enlargement, no adenopathy. CHEST: No chest wall deformity. Symmetrical expansion. LUNGS: Equal air entry with no crackles, wheeze, rhonchi or dullness. CVS: Regular rate and rhythm, normal S1 and S2, no gallops, no murmurs, no rubs ABDOMEN: Soft, nontender. No hepatosplenomegaly, normal bowel sounds, no guarding or rigidity. EXTREMITIES: No clubbing, no edema, no cyanosis, 2+ pulses and upper and lower extremities. MUSCULOSKELETAL: Muscle strength and tone normal. SPINE: No scoliosis or deformity SKIN: No rashes CENTRAL NERVOUS SYSTEM: Alert and oriented -3. No focal deficits, tone is normal in all 4 extremities. PSYCHIATRIC: Alert and oriented -3. Appropriate affect. Intact judgment and insight. - Labs CBC & Chem 7: 05/31/20 07:52 06/02/20 07:19 Labs: Abnormal Lab Results - Last 24 Hours (Table) 06/01/20 06/01/20 06/01/20 Range/Units 15:19 17:03 19:05 BUN (9-20) mg/dL Glucose (74-99) mg/dL POC Glucose (mg/dL) 358 H 289 H 376 H (75-99) mg/dL 06/01/20 06/01/20 06/02/20 Range/Units 21:03 23:04 01:05 BUN (9-20) mg/dL Glucose (74-99) mg/dL POC Glucose (mg/dL) 301 H 316 H 318 H (75-99) mg/dL 06/02/20 06/02/20 06/02/20 Range/Units 03:16 05:12 06:57 BUN (9-20) mg/dL Glucose (74-99) mg/dL POC Glucose (mg/dL) 245 H 152 H 241 H (75-99) mg/dL 06/02/20 06/02/20 06/02/20 Range/Units 07:19 09:15 11:14 BUN 24 H (9-20) mg/dL Glucose 249 H (74-99) mg/dL POC Glucose (mg/dL) 472 H 297 H (75-99) mg/dL 06/02/20 Range/Units 13:09 BUN (9-20) mg/dL Glucose (74-99) mg/dL POC Glucose (mg/dL) 290 H (75-99) mg/dL Microbiology - Last 24 Hours (Table) 06/01/20 08:15 Gram Stain - Preliminary Sputum Sputum Culture - Preliminary Assessment and Plan Plan: #1. Acute exacerbation of chronic obstructive pulmonary disease with purulent tracheobronchitis with secondary dyspnea, improving. The patient is on examination bronchodilators and systemic steroids. The patient is also covered with empiric antibiotics and accommodation Rocephin and Zithromax. The sow virus, 19 testing came back negative #2. Limited hemoptysis related to tracheal bronchitis, CTA chest showed no evidence of pulmonary embolism, or consolidation. The patient has not had any further episodes of hemoptysis. #3. Steroid-induced hyperglycemia with symptoms of polyuria and polydipsia, currently on insulin drip for blood sugar control #4. Acute kidney injury, recovered and the patient's renal function is normalized. #5. Advanced COPD with baseline FEV1 of 30%, on home oxygen at 3 L/m #6. Ex-smoker, currently in remission #7. Psoriasis #8 obstructive sleep apnea maintained on CPAP on outpatient basis with adequate compliance Plan Care treatment and keep the Solu Medrol 60 mg every 6 hours Continue CPAP overnight Insulin drip for blood sugar control DuoNeb nebulized treatments around the clock We will arrange Advair or this patient to be utilized on outpatient basis and t his will be set of Qvar or Pulmicort We'll continue to follow. Clinicall improving and the patient has no new issues or complaints for today.y
[2020-06-02 15:25] LABS: Glucose,Whole Blood 318 mg/dL (75-99)
[2020-06-02 17:36] LABS: Glucose,Whole Blood 294 mg/dL (75-99)
[2020-06-02 19:21] LABS: Glucose,Whole Blood 340 mg/dL (75-99)
[2020-06-02] MEDS: ATORVASTATIN 40 MG TAB PO SCH (20:42)
[2020-06-02 21:10] LABS: Glucose,Whole Blood 295 mg/dL (75-99)
[2020-06-02 23:06] LABS: Glucose,Whole Blood 270 mg/dL (75-99)
[2020-06-03 01:09] LABS: Glucose,Whole Blood 298 mg/dL (75-99)
[2020-06-03 02:08] LABS: Glucose,Whole Blood 175 mg/dL (75-99)
[2020-06-03 04:12] LABS: Glucose,Whole Blood 195 mg/dL (75-99)
[2020-06-03 06:04] LABS: Glucose,Whole Blood 217 mg/dL (75-99)
[2020-06-03] MEDS: methylPREDNISolone SOD SUCCI 125 MG/2 ML VIAL IV SCH (06:09)
[2020-06-03 07:38] LABS: Basophils % (A) 0 %; Eosinophils % (A) 0 %; HCT 42.4 % (39.0-53.0); HGB 13.4 gm/dL (13.0-17.5); Lymphocytes # (A) 1.2 k/uL (1.0-4.8); Lymphocytes % (A) 6 %; MCH 27.8 pg (25.0-35.0); MCHC 31.7 g/dL (31.0-37.0); MCV 87.7 fL (80.0-100.0); Mean Platelet Volume 7.6; Monocytes # (A) 0.8 k/uL (0-1.0); Monocytes % (A) 4 %; Neutrophils # (A) 20.2 k/uL (1.3-7.7); Neutrophils % (A) 90 %; Platelet Count 364 k/uL (150-450); RBC 4.84 m/uL (4.30-5.90); RDW 15.1 % (11.5-15.5); WBC 22.4 k/uL (3.8-10.6)
[2020-06-03] MEDS: IPRATROPIUM-ALBUTEROL 3 ML NEB INHALATION SCH ×4 (07:50→20:22)
[2020-06-03] MEDS: BUDESONIDE 1 MG/2 ML NEBU INHALATION SCH ×2 (07:50→20:22)
[2020-06-03] MEDS: FORMOTEROL FUMARATE 20 MCG/2 ML NEBU INHALATION SCH ×2 (07:50→20:22)
[2020-06-03 07:51] LABS: African American GFR (CKD) >90 (>60 ml/min/1.73 sqM); Anion Gap 6 mmol/L; Blood Urea Nitrogen 24 mg/dL (9-20); Calcium 9.3 mg/dL (8.4-10.2); Carbon Dioxide 29 mmol/L (22-30); Chloride 104 mmol/L (98-107); Glucose 245 mg/dL (74-99); Non-African American GFR(CKD) >90 (>60 ml/min/1.73 sqM); Potassium 4.9 mmol/L (3.5-5.1); Sodium 139 mmol/L (137-145)
[2020-06-03 08:07] LABS: Glucose,Whole Blood 362 mg/dL (75-99)
[2020-06-03] MEDS: HEPARIN SODIUM,PORCINE 5,000 UNIT/ML 1 ML VIAL SQ SCH ×2 (08:48→21:26)
[2020-06-03] MEDS: amLODIPine 10 MG TAB PO SCH (08:48)
[2020-06-03] MEDS: FAMOTIDINE 20 MG TAB PO SCH ×2 (08:48→21:26)
[2020-06-03] MEDS: lisinopriL 10 MG TAB PO SCH (08:48)
[2020-06-03] MEDS: AZITHROMYCIN 500 MG TAB PO SCH (08:48)
[2020-06-03 10:26] LABS: Glucose,Whole Blood 293 mg/dL (75-99)
[2020-06-03] MEDS: INSULIN REGULAR 100 UNIT in SODIUM CHLORIDE 0.9% 100 ML IV SCH ×2 (11:04→20:25)
[2020-06-03 11:51] LABS: Glucose,Whole Blood 304 mg/dL (75-99)
--- NOTE | 2020-06-03 13:17 | P.PN ---
Subjective Progress Note Date: 06/03/20 Principal diagnosis: Acute exacerbation of chronic obstructive pulmonary disease 59-year-old male patient with known history of COPD with chronic hypoxic respiratory failure usually on 3 L of oxygen at home [id number], obstructive sleep apnea on CPAP on APAP 511, former smoker, baseline FEV1 of 30%, psoriasis, who came into the emergency department on 05/22/2020 with complaints of worsening shortness of breath, chest pain with coughing and small amount of hemoptysis. Onset of symptoms was a week ago, he is producing the sputum which at times has a small amount of pink tinged blood. Patient was placed on steroids, and he noticed his blood sugars have been running extremely elevated. Patient denies history of diabetes. No swelling in lower extremities, no fever or chills, has been using his nebulizers without significant improvement. His been compliant with his CPAP at night. Patient is maintained on Qvar, DuoNeb, Singulair at home. Chest x-ray showed no active cardiopulmonary disease. CT chest showed no evidence of pulmonary embolism, it showed a fatty infiltration of the liver and hepatomegaly. His blood work showed white blood cell count of 14.3, hemoglobin is 14.4, coagulation profile was within normal limits, d-dimer is negative at 0.28, sodium is 132, potassium 5.0, chloride is 95, B1 is 27, creatinine is 1.29, serum glucose was 559 on admission, plasma lactic acid is 1.5, troponins were less than 0.0123, LFTs were elevated with AST of 65, ALT is 149, alkaline phosphatase of 141, urinalysis showed 4+ glucose but negative for any sign of infection, influenza screen is negative, COVID19 is pending. Patient was started on azithromycin and Rocephin, nebulized medical diabetes and we'll set the patient on IV steroids. We started on insulin infusion 06/01/2020, the patient is feeling better. He is slightly less short of breath compared to yesterday. The patient was started on IV Solu Medrol regarding her COPD exacerbation. The patient was also started on insulin drip for blood sugar control as the patient became quite hyperglycemic while being on systemic steroids. The patient also on DuoNeb nebulized treatment [id number]. He is utilizing his CPAP machine overnight in regards to his obstructive sleep apnea. Note that, the patient was also checked for coronavirus Covid 19 infection and the results are still pending for now. He remains on examination Rocephin and Zithromax. He remains afebrile. Blood sugars under tighter control for now. No chest pain. No leukocytosis. 06/02/2020, the patient is on IV Solu-Medrol. He remains on DuoNeb nebulized treatments around the clock. Shortness of breath is gradually improving. No chest pain. No swelling lower extremities. He remains on insulin drip for blood sugar control. No other significant events overnight. He is still being treated for COPD exacerbation and recommended another 24 hours of treatment with IV Solu Medrol. The patient is seen today 06/03/2020 in follow-up on the selective care unit. He is currently sitting up in the chair at the bedside. Wearing his home CPAP. He denies any worsening shortness of breath, cough or congestion. He is feeling better today compared to yesterday. Less shortness of breath. Less wheezing. He is afebrile. Maintaining O2 saturations in the mid 90s on 3 L while off the CPAP. Sputum culture reveals no growth. Glucose 304. White count 22.4. Hemoglobin 13.4. Sodium 139. Potassium 4.9. Creatinine 0.83. He remains on an insulin drip at 17 units per hour. Objective - Vital Signs Vital signs: Vital Signs Temp 98.1 F 06/03/20 11:11 Pulse 84 06/03/20 11:33 Resp 20 06/03/20 11:11 BP 163/90 06/03/20 11:11 Pulse Ox 95 06/03/20 11:11 Intake & Output 06/02/20 06/03/20 06/03/20 19:59 06:59 18:59 Intake Total 291.938 Output Total Balance 291.938 Weight Intake: Intake, IV Titration 51.938 Amount Insulin Regular 100 unit 51.938 In Sodium Chloride 0.9% 100 ml @ Titrate IV .Q0M [facility] Rx#:[id number] Oral 240 Output: Urine Other: Voiding Method Toilet Urinal # Voids 2 - Exam GENERAL EXAM: Alert, very pleasant 59 y.o obese male patient currently on 3 L/m per nasal cannula, comfortable in no apparent distress. HEAD: Normocephalic/atraumatic. EYES: Normal reaction of pupils, equal size. Conjunctiva pink, sclera white. NOSE: Clear with pink turbinates. THROAT: No erythema or exudates. NECK: No masses, no JVD, no thyroid enlargement, no adenopathy. CHEST: No chest wall deformity. Symmetrical expansion. LUNGS: Equal air entry with end expiratory wheeze bilaterally, diminished CVS: Regular rate and rhythm, normal S1 and S2, no gallops, no murmurs, no rubs ABDOMEN: Soft, nontender. No hepatosplenomegaly, normal bowel sounds, no guarding or rigidity. EXTREMITIES: No clubbing, no edema, no cyanosis, 2+ pulses and upper and lower extremities. MUSCULOSKELETAL: Muscle strength and tone normal. SPINE: No scoliosis or deformity SKIN: No rashes CENTRAL NERVOUS SYSTEM: No focal deficits, tone is normal in all 4 extremities. PSYCHIATRIC: Alert and oriented -3. Appropriate affect. Intact judgment and insight. - Labs CBC & Chem 7: 06/03/20 07:21 06/03/20 07:21 Labs: Abnormal Lab Results - Last 24 Hours (Table) 06/02/20 06/02/20 06/02/20 Range/Units 15:23 17:23 19:19 WBC (3.8-10.6) k/uL Neutrophils # (1.3-7.7) k/uL BUN (9-20) mg/dL Glucose (74-99) mg/dL POC Glucose (mg/dL) 318 H 294 H 340 H (75-99) mg/dL 06/02/20 06/02/20 06/03/20 Range/Units 21:09 23:04 01:08 EST WBC (3.8-10.6) k/uL Neutrophils # (1.3-7.7) k/uL BUN (9-20) mg/dL Glucose (74-99) mg/dL POC Glucose (mg/dL) 295 H 270 H 298 H (75-99) mg/dL 06/03/20 06/03/20 06/03/20 Range/Units 02:07 04:11 06:03 WBC (3.8-10.6) k/uL Neutrophils # (1.3-7.7) k/uL BUN (9-20) mg/dL Glucose (74-99) mg/dL POC Glucose (mg/dL) 175 H 195 H 217 H (75-99) mg/dL 06/03/20 06/03/20 06/03/20 Range/Units 07:21 07:21 08:02 WBC 22.4 H (3.8-10.6) k/uL Neutrophils # 20.2 H (1.3-7.7) k/uL BUN 24 H (9-20) mg/dL Glucose 245 H (74-99) mg/dL POC Glucose (mg/dL) 362 H (75-99) mg/dL 06/03/20 06/03/20 Range/Units 10:06 11:50 WBC (3.8-10.6) k/uL Neutrophils # (1.3-7.7) k/uL BUN (9-20) mg/dL Glucose (74-99) mg/dL POC Glucose (mg/dL) 293 H 304 H (75-99) mg/dL Microbiology - Last 24 Hours (Table) 06/01/20 08:15 Gram Stain - Final Sputum Sputum Culture - Final Assessment and Plan Assessment: #1. Acute exacerbation of chronic obstructive pulmonary disease with purulent tracheobronchitis with secondary dyspnea, improving. The patient is on examination bronchodilators and systemic steroids. The patient is also covered with empiric antibiotics and accommodation Rocephin and Zithromax. The sow virus, 19 testing came back negative #2. Limited hemoptysis related to tracheal bronchitis, CTA chest showed no evidence of pulmonary embolism, or consolidation. The patient has not had any further episodes of hemoptysis. #3. Steroid-induced hyperglycemia with symptoms of polyuria and polydipsia, currently on insulin drip for blood sugar control #4. Acute kidney injury, recovered and the patient's renal function is normal ized. #5. Advanced COPD with baseline FEV1 of 30%, on home oxygen at 3 L/m #6. Ex-smoker, currently in remission #7. Psoriasis #8 obstructive sleep apnea maintained on CPAP on outpatient basis with adequate compliance Plan: The patient was seen and evaluated by Dr. Meadows He is improved today compared to yesterday. We will decrease the IV Solu-Medrol due to elevated blood sugar Continue to titrate the insulin drip Continue bronchodilators Increase his activity as tolerated Possible discharge in the a.m. I, the cosigning physician, performed a history & physical examination of the patient. Lungs sounds with bilateral end expiratory wheeze, diminished. Maintaining good O2 saturations in the 90s on 3 L/m per nasal cannula. I discussed the assessment and plan of care with my nurse practitioner, Radha Bryant. I attest to the above note as dictated by her.
[2020-06-03 14:14] LABS: Glucose,Whole Blood 369 mg/dL (75-99)
[2020-06-03] MEDS: methylPREDNISolone SOD SUCCI 40 MG/ML 1 ML VIAL IV SCH ×2 (16:26→23:54)
[2020-06-03 16:40] LABS: Glucose,Whole Blood 273 mg/dL (75-99)
[2020-06-03 17:55] LABS: Glucose,Whole Blood 255 mg/dL (75-99)
[2020-06-03 19:59] LABS: Glucose,Whole Blood 354 mg/dL (75-99)
[2020-06-03] MEDS: ATORVASTATIN 40 MG TAB PO SCH (21:26)
[2020-06-03 21:55] LABS: Glucose,Whole Blood 320 mg/dL (75-99)
[2020-06-03] MEDS ORDERED: CALAMINE/ZINC OXIDE LOTION 177 ML BTL TOPICAL PRN (23:45)
--- NOTE | 2020-06-03 23:48 | P.PN ---
Subjective Progress Note Date: 06/02/20 Principal diagnosis: Acute COPD exacerbation Mr. Fang is a 59-year-old male with a past medical history of COPD, diabetes mellitus, psoriasis, nicotine dependence coming in with the cough and difficulty in breathing. He follows with rn sane and was recently prescribed a tapering dose of steroids that he has been taking. Since being on steroids patient noticed that he had polydipsia and his blood sugars have been high on the glucometer at home. He currently is being treated for acute COPD exacerbation and new onset diabetes mellitus. On 06/02/2020 -patient is comfortably sitting up in a chair at the bedside appears to be in no acute distress. Patient states that his difficulty in breathing is improving slowly but he is not back to baseline yet. Patient denies having any chest pain or palpitations. No nausea nausea vomiting or diarrhea. No dysuria or hematuria. Patient's vitals have been reviewed temperature of 97.6, heart rate 83, respiratory 20, saturating at 97% on 3 L of oxygen, blood pressure 143/64. Patient's labs have been reviewed sodium 140, potassium 5, chloride 105, bicarb 28, BUN 26 7, creatinine 0.88. Patient's blood sugars have been ranging in 200s to 300s. Active Medications Acetaminophen (Acetaminophen Tab 325 Mg Tab) 650 mg PO Q4HR PRN PRN Reason: Fever and/ or Pain Last Admin: 05/31/20 03:39 Dose: 650 mg Documented by: Albuterol Sulfate (Albuterol Hfa Inhaler) 2 puff INHALATION RT-QID PRN PRN Reason: Shortness Of Breath Or Wheezing Last Admin: 05/31/20 07:20 Dose: 2 puff Documented by: Albuterol/Ipratropium (Ipratropium-Albuterol 3 Ml Neb) 3 ml INHALATION RT-QID [facility] Last Admin: 06/02/20 19:16 Dose: 3 ml Documented by: Albuterol/Ipratropium (Ipratropium-Albuterol 3 Ml Neb) 3 ml INHALATION RT-Q2H PRN PRN Reason: Shortness Of Breath Or Wheezing Last Admin: 05/31/20 13:36 Dose: 3 ml Documented by: Amlodipine Besylate (Amlodipine 10 Mg Tab) 10 mg PO DAILY [facility] Last Admin: 06/02/20 08:56 Dose: 10 mg Documented by: Atorvastatin Calcium (Atorvastatin 40 Mg Tab) 40 mg PO HS [facility] Last Admin: 06/02/20 20:42 Dose: 40 mg Documented by: Azithromycin (Azithromycin 500 Mg Tab) 500 mg PO DAILY [facility] Last Admin: 06/02/20 08:56 Dose: 500 mg Documented by: Budesonide (Budesonide 1 Mg/2 Ml Nebu) 1 mg INHALATION RT-BID [facility] Last Admin: 06/02/20 19:16 Dose: 1 mg Documented by: Famotidine (Famotidine 20 Mg Tab) 20 mg PO Q12HR [facility] Last Admin: 06/02/20 20:42 Dose: 20 mg Documented by: Formoterol Fumarate (Formoterol Fumarate 20 Mcg/2 Ml Nebu) 20 mcg INHALATION RT-BID [facility] Last Admin: 06/02/20 19:16 Dose: 20 mcg Documented by: Heparin Sodium (Porcine) (Heparin Sodium,Porcine 5,000 Unit/Ml 1 Ml Vial) 5,000 unit SQ Q12HR [facility] Last Admin: 06/02/20 20:42 Dose: 5,000 unit Documented by: Insulin Human Regular 100 unit (/ Sodium Chloride) 101 mls @ 0 mls/hr IV .Q0M [facility]; Protocol Last Titration: 06/02/20 23:05 Dose: 11 units/hr, 11.11 mls/hr Documented by: Lisinopril (Lisinopril 10 Mg Tab) 10 mg PO DAILY [facility] Last Admin: 06/02/20 08:56 Dose: 10 mg Documented by: Methylprednisolone Sodium Succinate (Methylprednisolone Sod Succi 125 Mg/2 Ml Vial) 60 mg IV Q6HR [facility] Last Admin: 06/02/20 18:53 Dose: 60 mg Documented by: Naloxone HCl (Naloxone 0.4 Mg/Ml 1 Ml Vial) 0.2 mg IV Q2M PRN PRN Reason: Opioid Reversal Objective - Vital Signs Vital signs: Vital Signs Temp 97.6 F 06/02/20 16:00 Pulse 84 06/02/20 16:01 Resp 20 06/02/20 16:00 BP 143/64 06/02/20 16:00 Pulse Ox 97 06/02/20 16:00 Intake & Output 06/01/20 06/02/20 06/02/20 18:59 06:59 18:59 Intake Total 731.000 177.153 501.303 Output Total 600 Balance 731.000 177.153 -98.697 Weight 117.3 kg 117.2 kg Intake: Intake, IV Titration 251.000 177.153 101.303 Amount Insulin Regular 100 unit 101.000 177.153 101.303 In Sodium Chloride 0.9% 100 ml @ Titrate IV .Q0M [facility] Rx#:[id number] Sodium Chloride 0.9% 1, 150 000 ml @ 75 mls/hr IV . [id number] [facility] Rx#:[id number] Oral 480 400 Output: Urine 600 Other: Voiding Method Urinal Urinal Urinal # Voids 1 2 # Bowel Movements 0 - Exam -GENERAL: The patient is alert and oriented x3, not in any acute distress. Obese HEENT: Pupils are round and equally reacting to light. EOMI. No scleral icterus. No conjunctival pallor. Normocephalic, atraumatic. No pharyngeal erythema. No thyromegaly. CARDIOVASCULAR: S1 and S2 present. No murmurs, rubs, or gallops. -PULMONARY: bilateral scattered wheezing . No crackles. Decreased air entry on both sides. Barrel shaped chest ABDOMEN: Soft, nontender, nondistended, normoactive bowel sounds. No palpable organomegaly. MUSCULOSKELETAL: No joint swelling or deformity. EXTREMITIES: No cyanosis, clubbing, or pedal edema. NEUROLOGICAL: Gross neurological examination did not reveal any focal deficits. SKIN: Psoriatic lesions on her extremities. - Labs CBC & Chem 7: 05/31/20 07:52 06/02/20 07:19 Labs: Abnormal Lab Results - Last 24 Hours (Table) 06/01/20 06/01/20 06/01/20 Range/Units 17:03 19:05 21:03 BUN (9-20) mg/dL Glucose (74-99) mg/dL POC Glucose (mg/dL) 289 H 376 H 301 H (75-99) mg/dL 06/01/20 06/02/20 06/02/20 Range/Units 23:04 01:05 03:16 BUN (9-20) mg/dL Glucose (74-99) mg/dL POC Glucose (mg/dL) 316 H 318 H 245 H (75-99) mg/dL 06/02/20 06/02/20 06/02/20 Range/Units 05:12 06:57 07:19 BUN 24 H (9-20) mg/dL Glucose 249 H (74-99) mg/dL POC Glucose (mg/dL) 152 H 241 H (75-99) mg/dL 06/02/20 06/02/20 06/02/20 Range/Units 09:15 11:14 13:09 BUN (9-20) mg/dL Glucose (74-99) mg/dL POC Glucose (mg/dL) 472 H 297 H 290 H (75-99) mg/dL 06/02/20 Range/Units 15:23 BUN (9-20) mg/dL Glucose (74-99) mg/dL POC Glucose (mg/dL) 318 H (75-99) mg/dL Microbiology - Last 24 Hours (Table) 06/01/20 08:15 Gram Stain - Preliminary Sputum Sputum Culture - Preliminary Assessment and Plan Assessment: Assessment: Acute COPD exacerbation , with dyspnea and coughing blood Acute on chronic hypoxic respiratory failure Hyperglycemia,with new-onset diabetes, [id number] Acute kidney injury Elevated liver enzymes Nicotine dependence History of psoriasis Plan: Continue with antibiotics in the form of ceftriaxone and Zithromax, IV Solu-Medrol. Patient continues to be on insulin drip for better control of his blood sugars due to new onset diabetes mellitus. Patient's creatinine is trending down. Continue with the current medication regimen. Further recommendations to follow depending on the progress of the patient.
[2020-06-03 23:59] LABS: Glucose,Whole Blood 282 mg/dL (75-99)
--- NOTE | 2020-06-04 | P.PN ---
Subjective Progress Note Date: 06/03/20 Principal diagnosis: Acute COPD exacerbation Mr. Fang is a 59-year-old male with a past medical history of COPD, diabetes mellitus, psoriasis, nicotine dependence coming in with the cough and difficulty in breathing. He follows with nursing executive and was recently prescribed a tapering dose of steroids that he has been taking. Since being on steroids patient noticed that he had polydipsia and his blood sugars have been high on the glucometer at home. He currently is being treated for acute COPD exacerbation and new onset diabetes mellitus. On 06/02/2020 -patient is comfortably sitting up in a chair at the bedside appears to be in no acute distress. Patient states that his difficulty in breathing is improving slowly but he is not back to baseline yet. Patient denies having any chest pain or palpitations. No nausea nausea vomiting or diarrhea. No dysuria or hematuria. Patient's vitals have been reviewed temperature of 97.6, heart rate 83, respiratory 20, saturating at 97% on 3 L of oxygen, blood pressure 143/64. Patient's labs have been reviewed sodium 140, potassium 5, chloride 105, bicarb 28, BUN 26 7, creatinine 0.88. Patient's blood sugars have been ranging in 200s to 300s. On 06/03/2020 patient is sitting in a chair by the bedside appears to be no acute distress. As per the nursing staff report patient's blood sugars have been still running on the higher side his dose of steroids changed to 40 IV every 8 hours. Patient states his difficulty in breathing is better chest pain or palpitations. No abdominal pain nausea vomiting or diarrhea. Patient psoriatic rash has been itching. On reviewing her vitals temperature 98.5, heart rate 69 respiratory rate 18 blood pressure 167 x 95 saturating at 96% on 3 L of oxygen. Patient's labs have been reviewed white count 22.4, hemoglobin 13 platelets 634. Sodium 139, potassium 4.9, chloride 104, bicarb 29, BUN 24, creatinine 0.83. Active Medications Acetaminophen (Acetaminophen Tab 325 Mg Tab) 650 mg PO Q4HR PRN PRN Reason: Fever and/ or Pain Last Admin: 05/31/20 03:39 Dose: 650 mg Documented by: Albuterol Sulfate (Albuterol Hfa Inhaler) 2 puff INHALATION RT-QID PRN PRN Reason: Shortness Of Breath Or Wheezing Last Admin: 05/31/20 07:20 Dose: 2 puff Documented by: Albuterol/Ipratropium (Ipratropium-Albuterol 3 Ml Neb) 3 ml INHALATION RT-QID [facility] Last Admin: 06/03/20 20:22 Dose: 3 ml Documented by: Albuterol/Ipratropium (Ipratropium-Albuterol 3 Ml Neb) 3 ml INHALATION RT-Q2H PRN PRN Reason: Shortness Of Breath Or Wheezing Last Admin: 05/31/20 13:36 Dose: 3 ml Documented by: Amlodipine Besylate (Amlodipine 10 Mg Tab) 10 mg PO DAILY [facility] Last Admin: 06/03/20 08:48 Dose: 10 mg Documented by: Atorvastatin Calcium (Atorvastatin 40 Mg Tab) 40 mg PO HS [facility] Last Admin: 06/03/20 21:26 Dose: 40 mg Documented by: Azithromycin (Azithromycin 500 Mg Tab) 500 mg PO DAILY [facility] Last Admin: 06/03/20 08:48 Dose: 500 mg Documented by: Budesonide (Budesonide 1 Mg/2 Ml Nebu) 1 mg INHALATION RT-BID [facility] Last Admin: 06/03/20 20:22 Dose: 1 mg Documented by: Calamine (Calamine/Zinc Oxide Lotion 177 Ml Btl) 1 applic TOPICAL TID PRN PRN Reason: Skin Irritation Last Admin: 06/03/20 23:46 Dose: 1 applic Documented by: Famotidine (Famotidine 20 Mg Tab) 20 mg PO Q12HR [facility] Last Admin: 06/03/20 21:26 Dose: 20 mg Documented by: Formoterol Fumarate (Formoterol Fumarate 20 Mcg/2 Ml Nebu) 20 mcg INHALATION RT-BID [facility] Last Admin: 06/03/20 20:22 Dose: 20 mcg Documented by: Heparin Sodium (Porcine) (Heparin Sodium,Porcine 5,000 Unit/Ml 1 Ml Vial) 5,000 unit SQ Q12HR [facility] Last Admin: 06/03/20 21:26 Dose: 5,000 unit Documented by: Insulin Human Regular 100 unit (/ Sodium Chloride) 101 mls @ 0 mls/hr IV .Q0M [facility]; Protocol Last Titration: 06/03/20 22:31 Dose: 14.5 units/hr, 14.645 mls/hr Documented by: Lisinopril (Lisinopril 10 Mg Tab) 10 mg PO DAILY [facility] Last Admin: 06/03/20 08:48 Dose: 10 mg Documented by: Methylprednisolone Sodium Succinate (Methylprednisolone Sod Succi 40 Mg/Ml 1 Ml Vial) 40 mg IV Q8HR [facility] Last Admin: 06/03/20 16:26 Dose: 40 mg Documented by: Naloxone HCl (Naloxone 0.4 Mg/Ml 1 Ml Vial) 0.2 mg IV Q2M PRN PRN Reason: Opioid Reversal Objective - Vital Signs Vital signs: Vital Signs Temp 98.1 F 06/03/20 11:11 Pulse 80 06/03/20 16:03 Resp 20 06/03/20 11:11 BP 163/90 06/03/20 11:11 Pulse Ox 95 06/03/20 11:11 Intake & Output 06/02/20 06/03/20 06/03/20 19:59 06:59 18:59 Intake Total 560.252 Output Total Balance 560.252 Weight Intake: Intake, IV Titration 80.252 Amount Insulin Regular 100 unit 80.252 In Sodium Chloride 0.9% 100 ml @ Titrate IV .Q0M [facility] Rx#:[id number] Oral 480 Output: Urine Other: Voiding Method Toilet Urinal # Voids 0 # Bowel Movements 0 - Exam -GENERAL: The patient is alert and oriented x3, not in any acute distress. Obese HEENT: Pupils are round and equally reacting to light. EOMI. No scleral icterus. No conjunctival pallor. Normocephalic, atraumatic. No pharyngeal erythema. No thyromegaly. CARDIOVASCULAR: S1 and S2 present. No murmurs, rubs, or gallops. PULMONARY: bilateral scattered wheezing . No crackles. Decreased air entry on both sides. Barrel shaped chest ABDOMEN: Soft, nontender, nondistended, normoactive bowel sounds. No palpable organomegaly. MUSCULOSKELETAL: No joint swelling or deformity. EXTREMITIES: No cyanosis, clubbing, or pedal edema. NEUROLOGICAL: Gross neurological examination did not reveal any focal deficits. SKIN: Psoriatic lesions on her extremities. - Labs CBC & Chem 7: 06/03/20 07:21 06/03/20 07:21 Labs: Abnormal Lab Results - Last 24 Hours (Table) 06/02/20 06/02/20 06/02/20 Range/Units 17:23 19:19 21:09 WBC (3.8-10.6) k/uL Neutrophils # (1.3-7.7) k/uL BUN (9-20) mg/dL Glucose (74-99) mg/dL POC Glucose (mg/dL) 294 H 340 H 295 H (75-99) mg/dL 06/02/20 06/03/20 06/03/20 Range/Units 23:04 01:08 EST 02:07 WBC (3.8-10.6) k/uL Neutrophils # (1.3-7.7) k/uL BUN (9-20) mg/dL Glucose (74-99) mg/dL POC Glucose (mg/dL) 270 H 298 H 175 H (75-99) mg/dL 06/03/20 06/03/20 06/03/20 Range/Units 04:11 06:03 07:21 WBC (3.8-10.6) k/uL Neutrophils # (1.3-7.7) k/uL BUN 24 H (9-20) mg/dL Glucose 245 H (74-99) mg/dL POC Glucose (mg/dL) 195 H 217 H (75-99) mg/dL 06/03/20 06/03/20 06/03/20 Range/Units 07:21 08:02 10:06 WBC 22.4 H (3.8-10.6) k/uL Neutrophils # 20.2 H (1.3-7.7) k/uL BUN (9-20) mg/dL Glucose (74-99) mg/dL POC Glucose (mg/dL) 362 H 293 H (75-99) mg/dL 06/03/20 06/03/20 Range/Units 11:50 14:12 WBC (3.8-10.6) k/uL Neutrophils # (1.3-7.7) k/uL BUN (9-20) mg/dL Glucose (74-99) mg/dL POC Glucose (mg/dL) 304 H 369 H (75-99) mg/dL Microbiology - Last 24 Hours (Table) 06/01/20 08:15 Gram Stain - Final Sputum Sputum Culture - Final Assessment and Plan Assessment: Assessment: Acute COPD exacerbation Acute on chronic hypoxic respiratory failure Hyperglycemia,with new-onset diabetes, [id number] Acute kidney injury Elevated liver enzymes Nicotine dependence History of psoriasis Plan: Continue with antibiotics in the form of ceftriaxone and Zithromax. IV Solu-Medrol dose has been decreased due to persistent hyperglycemia. Patient continues to be on insulin drip for better control of his blood sugars due to new onset diabetes mellitus. COVID 19 - negative. Patient's creatinine is tren ded down. Continue with the current medication regimen. GI/DVT prophylaxsis. Further recommendations to follow depending on the progress of the patient.
[2020-06-04] MEDS: HEPARIN SODIUM,PORCINE 5,000 UNIT/ML 1 ML VIAL SQ SCH ×4 (01:02→23:57)
[2020-06-04 02:00] LABS: Glucose,Whole Blood 184 mg/dL (75-99)
[2020-06-04] MEDS: INSULIN REGULAR 100 UNIT in SODIUM CHLORIDE 0.9% 100 ML IV SCH ×3 (03:30→19:56)
[2020-06-04 04:02] LABS: Glucose,Whole Blood 177 mg/dL (75-99)
[2020-06-04 06:05] LABS: Glucose,Whole Blood 174 mg/dL (75-99)
[2020-06-04] MEDS: FORMOTEROL FUMARATE 20 MCG/2 ML NEBU INHALATION SCH ×2 (07:54→20:16)
[2020-06-04] MEDS: BUDESONIDE 1 MG/2 ML NEBU INHALATION SCH ×2 (07:54→20:16)
[2020-06-04] MEDS: IPRATROPIUM-ALBUTEROL 3 ML NEB INHALATION SCH ×4 (07:54→20:17)
[2020-06-04 08:22] LABS: Glucose,Whole Blood 245 mg/dL (75-99)
[2020-06-04] MEDS: amLODIPine 10 MG TAB PO SCH (09:56)
[2020-06-04] MEDS: FAMOTIDINE 20 MG TAB PO SCH ×2 (09:56→20:18)
[2020-06-04] MEDS: lisinopriL 10 MG TAB PO SCH (09:56)
[2020-06-04] MEDS: methylPREDNISolone SOD SUCCI 40 MG/ML 1 ML VIAL IV SCH ×2 (09:56→15:56)
[2020-06-04] MEDS: AZITHROMYCIN 500 MG TAB PO SCH (09:56)
[2020-06-04 10:08] LABS: Glucose,Whole Blood 297 mg/dL (75-99)
[2020-06-04 11:53] LABS: Glucose,Whole Blood 212 mg/dL (75-99)
[2020-06-04 14:38] LABS: Glucose,Whole Blood 313 mg/dL (75-99)
[2020-06-04 15:27] VITALS: BMI 38.4
--- NOTE | 2020-06-04 16:07 | P.PN ---
Subjective Progress Note Date: 06/04/20 Principal diagnosis: Acute exacerbation of COPD 59-year-old male patient with known history of COPD with chronic hypoxic respiratory failure usually on 3 L of oxygen at home [id number], obstructive sleep apnea on CPAP on APAP 511, former smoker, baseline FEV1 of 30%, psoriasis, who came into the emergency department on 05/22/2020 with complaints of worsening shortness of breath, chest pain with coughing and small amount of hemoptysis. Onset of symptoms was a week ago, he is producing the sputum which at times has a small amount of pink tinged blood. Patient was p laced on steroids, and he noticed his blood sugars have been running extremely elevated. Patient denies history of diabetes. No swelling in lower extremities, no fever or chills, has been using his nebulizers without significant improvement. His been compliant with his CPAP at night. Patient is maintained on Qvar, DuoNeb, Singulair at home. Chest x-ray showed no active cardiopulmonary disease. CT chest showed no evidence of pulmonary embolism, it showed a fatty infiltration of the liver and hepatomegaly. His blood work showed white blood cell count of 14.3, hemoglobin is 14.4, coagulation profile was within normal limits, d-dimer is negative at 0.28, sodium is 132, potassium 5.0, chloride is 95, B1 is 27, creatinine is 1.29, serum glucose was 559 on admission, plasma lactic acid is 1.5, troponins were less than 0.0123, LFTs were elevated with AST of 65, ALT is 149, alkaline phosphatase of 141, urinalysis showed 4+ glucose but negative for any sign of infection, influenza screen is negative, COVID19 is pending. Patient was started on azithromycin and Rocephin, nebulized medical diabetes and we'll set the patient on IV steroids. We started on insulin infusion 06/01/2020, the patient is feeling better. He is slightly less short of breath compared to yesterday. The patient was started on IV Solu Medrol regarding her COPD exacerbation. The patient was also started on insulin drip for blood sugar control as the patient became quite hyperglycemic while being on systemic steroids. The patient also on DuoNeb nebulized treatment [id number]. He is utilizing his CPAP machine overnight in regards to his obstructive sleep apnea. Note that, the patient was also checked for coronavirus Covid 19 infection and the results are still pending for now. He remains on examination Rocephin and Zithromax. He remains afebrile. Blood sugars under tighter control for now. No chest pain. No leukocytosis. 06/02/2020, the patient is on IV Solu-Medrol. He remains on DuoNeb nebulized treatments around the clock. Shortness of breath is gradually improving. No ch est pain. No swelling lower extremities. He remains on insulin drip for blood sugar control. No other significant events overnight. He is still being treated for COPD exacerbation and recommended another 24 hours of treatment with IV Solu Medrol. The patient is seen today 06/03/2020 in follow-up on the selective care unit. He is currently sitting up in the chair at the bedside. Wearing his home CPAP. He denies any worsening shortness of breath, cough or congestion. He is feeling better today compared to yesterday. Less shortness of breath. Less wheezing. He is afebrile. Maintaining O2 saturations in the mid 90s on 3 L while off the CPAP. Sputum culture reveals no growth. Glucose 304. White count 22.4. Hemoglobin 13.4. Sodium 139. Potassium 4.9. Creatinine 0.83. He remains on an insulin drip at 17 units per hour. On 06/04/2020 patient seen in follow-up on selective care unit, he is breathing much easier today, his Covid 19 PCR was negative, his been afebrile, he is on 3 days of oxygen pulse ox of 96%, hemodynamically stable, much less dyspneic and bronchospastic on today's exam, he is tolerating ambulation, his had no acute events overnight, he has point normal saline at a rate of 20 ML per hour, he's got insulin infusion is infusing at 12.5 units per hour. His sputum culture has shown no growth. He was treated with the azithromycin and Rocephin nebulized bronchodilators, and IV steroids, he has significantly improved in terms of his breathing. Objective - Vital Signs Vital signs: Vital Signs Temp 97.9 F 06/04/20 12:01 Pulse 76 06/04/20 15:38 Resp 18 06/04/20 12:01 BP 148/81 06/04/20 12:01 Pulse Ox 96 06/04/20 12:01 Intake & Output 06/03/20 06/04/20 06/04/20 18:59 06:59 18:59 Intake Total 615.137 111.765 40.449 Output Total 320 Balance 615.137 -208.235 40.449 Weight 118 kg 118 kg Intake: Intake, IV Titration 135.137 111.765 40.449 Amount Insulin Regular 100 unit 135.137 111.765 40.449 In Sodium Chloride 0.9% 100 ml @ Titrate IV .Q0M [facility] Rx#:[id number] Oral 480 Output: Urine 320 Other: Voiding Method Toilet Toilet Urinal Urinal # Voids 0 1 # Bowel Movements 0 - Exam GENERAL EXAM: Alert, very pleasant 59 y.o obese male patient currently on 3 L/m per nasal cannula, with a pulse ox of 96% comfortable in no apparent distress. HEAD: Normocephalic/atraumatic. EYES: Normal reaction of pupils, equal size. Conjunctiva pink, sclera white. NOSE: Clear with pink turbinates. THROAT: No erythema or exudates. NECK: No masses, no JVD, no thyroid enlargement, no adenopathy. CHEST: No chest wall deformity. Symmetrical expansion. LUNGS: Equal air entry with end expiratory wheeze bilaterally, diminished CVS: Regular rate and rhythm, normal S1 and S2, no gallops, no murmurs, no rubs ABDOMEN: Soft, nontender. No hepatosplenomegaly, normal bowel sounds, no guarding or rigidity. EXTREMITIES: No clubbing, no edema, no cyanosis, 2+ pulses and upper and lower extremities. MUSCULOSKELETAL: Muscle strength and tone normal. SPINE: No scoliosis or deformity SKIN: No rashes CENTRAL NERVOUS SYSTEM: No focal deficits, tone is normal in all 4 extremities. PSYCHIATRIC: Alert and oriented -3. Appropriate affect. Intact judgment and insight. - Labs CBC & Chem 7: 06/03/20 07:21 06/03/20 07:21 Labs: Abnormal Lab Results - Last 24 Hours (Table) 06/03/20 06/03/20 06/03/20 Range/Units 16:21 17:53 19:58 POC Glucose (mg/dL) 273 H 255 H 354 H (75-99) mg/dL 06/03/20 06/03/20 06/04/20 Range/Units 21:54 23:57 01:59 POC Glucose (mg/dL) 320 H 282 H 184 H (75-99) mg/dL 06/04/20 06/04/20 06/04/20 Range/Units 04:00 06:03 08:20 POC Glucose (mg/dL) 177 H 174 H 245 H (75-99) mg/dL 06/04/20 06/04/20 06/04/20 Range/Units 10:05 11:46 14:35 POC Glucose (mg/dL) 297 H 212 H 313 H (75-99) mg/dL Assessment and Plan Plan: Assessment: #1. Acute exacerbation of chronic obstructive pulmonary disease with purulent tracheobronchitis with secondary dyspnea, significantly improved, patient is on a common issue bronchodilators, systemic steroids, and empiric in about is no form of Rocephin and azithromycin, coronavirus 19 testing came back negative #2. Limited hemoptysis related to tracheal bronchitis, CTA chest showed no evidence of pulmonary embolism, or consolidation #3. Steroid-induced hyperglycemia with symptoms of polyuria and polydipsia #4. Acute kidney injury #5. Advanced COPD with baseline FEV1 of 30%, on home oxygen at 3 L/m #6. Ex-smoker, currently in remission #7. Psoriasis #8. Obstructive sleep apnea maintained on CPAP on an outpatient basis with adequate compliance Plan: Patient is doing well, continue improved, will switch his IV steroids to oral prednisone 40 mg daily, vital signs have been stable, his COVID 19 was negative, he remains on insulin infusion for steroid-induced hyperglycemia, management per medicine. From pulmonary perspective patient can be considered for discharge home today or in next 24 hours if cleared by medicine, patient can continue on prednisone taper, we sent a prescription to pharmacy for Advair which was approved by his insurance, he wishes to follow-up with Dr. Jimenez whom he used to see in the past for his COPD, however in view of his insurance change he had to stop seeing him unfortunately but he would like to continue seeing Dr. Jimenez. He will need outpatient follow-up with Dr. Jimenez in 7-10 days. I performed a history & physical examination of the patient and discussed their management with my nurse practitioner, Luz Houston. I reviewed the nurse practitioner's note and agree with the documented findings and plan of care. Lung sounds are positive for diminished breath sounds. The findings and the impression was discussed with the patient. I attest to the documentation by the nurse practitioner. Time with Patient: Less than 30
[2020-06-04 16:12] LABS: Glucose,Whole Blood 306 mg/dL (75-99)
[2020-06-04 18:04] LABS: Glucose,Whole Blood 392 mg/dL (75-99)
[2020-06-04 20:00] LABS: Glucose,Whole Blood 323 mg/dL (75-99)
[2020-06-04] MEDS: ATORVASTATIN 40 MG TAB PO SCH (20:18)
[2020-06-04] MEDS: metFORMIN 500 MG TAB PO SCH (20:18)
[2020-06-04 21:57] LABS: Glucose,Whole Blood 244 mg/dL (75-99)
[2020-06-05 00:06] LABS: Glucose,Whole Blood 252 mg/dL (75-99)
--- NOTE | 2020-06-05 01:21 | P.PN ---
Subjective Progress Note Date: 06/04/20 Principal diagnosis: Acute COPD exacerbation Mr. Fang is a 59-year-old male with a past medical history of COPD, diabetes mellitus, psoriasis, nicotine dependence coming in with the cough and difficulty in breathing. He follows with lead designer and was recently prescribed a tapering dose of steroids that he has been taking. Since being on steroids patient noticed that he had polydipsia and his blood sugars have been high on the glucometer at home. He currently is being treated for acute COPD exacerbation and new onset diabetes mellitus. On 06/02/2020 -patient is comfortably sitting up in a chair at the bedside appears to be in no acute distress. Patient states that his difficulty in breathing is improving slowly but he is not back to baseline yet. Patient denies having any chest pain or palpitations. No nausea nausea vomiting or diarrhea. No dysuria or hematuria. Patient's vitals have been reviewed temperature of 97.6, heart rate 83, respiratory 20, saturating at 97% on 3 L of oxygen, blood pressure 143/64. Patient's labs have been reviewed sodium 140, potassium 5, chloride 105, bicarb 28, BUN 26 7, creatinine 0.88. Patient's blood sugars have been ranging in 200s to 300s. On 06/03/2020 patient is sitting in a chair by the bedside appears to be no acute distress. As per the nursing staff report patient's blood sugars have been still running on the higher side his dose of steroids changed to 40 IV every 8 hours. Patient states his difficulty in breathing is better chest pain or palpitations. No abdominal pain nausea vomiting or diarrhea. Patient psoriatic rash has been itching. On reviewing her vitals temperature 98.5, heart rate 69 respiratory rate 18 blood pressure 167 x 95 saturating at 96% on 3 L of oxygen. Patient's labs have been reviewed white count 22.4, hemoglobin 13 platelets 634. Sodium 139, potassium 4.9, chloride 104, bicarb 29, BUN 24, creatinine 0.83. On 06/04/2020 -patient is sitting up in a chair by the bedside. He states that he is very anxious to go home. Patient is still on insulin drip due to persistent hyperglycemia. Patient denies having any chest pain or palpitations. No cough or difficulty in breathing. He denies having any swelling of his lower extremities. No abdominal pain nausea vomiting or diarrhea. No dysuria or hematuria. On reviewing his vitals temperature of 99.9, heart rate 67, respiratory rate 18, blood pressure 136 x 85, saturating at 96% on 3 L of oxygen. No new labs from this morning. Active Medications Acetaminophen (Acetaminophen Tab 325 Mg Tab) 650 mg PO Q4HR PRN PRN Reason: Fever and/ or Pain Last Admin: 05/31/20 03:39 Dose: 650 mg Documented by: Albuterol Sulfate (Albuterol Hfa Inhaler) 2 puff INHALATION RT-QID PRN PRN Reason: Shortness Of Breath Or Wheezing Last Admin: 05/31/20 07:20 Dose: 2 puff Documented by: Albuterol/Ipratropium (Ipratropium-Albuterol 3 Ml Neb) 3 ml INHALATION RT-QID [facility] Last Admin: 06/04/20 20:17 Dose: 3 ml Documented by: Albuterol/Ipratropium (Ipratropium-Albuterol 3 Ml Neb) 3 ml INHALATION RT-Q2H PRN PRN Reason: Shortness Of Breath Or Wheezing Last Admin: 05/31/20 13:36 Dose: 3 ml Documented by: Amlodipine Besylate (Amlodipine 10 Mg Tab) 10 mg PO DAILY [facility] Last Admin: 06/04/20 09:56 Dose: 10 mg Documented by: Atorvastatin Calcium (Atorvastatin 40 Mg Tab) 40 mg PO HS [facility] Last Admin: 06/04/20 20:18 Dose: 40 mg Documented by: Azithromycin (Azithromycin 500 Mg Tab) 500 mg PO DAILY [facility] Last Admin: 06/04/20 09:56 Dose: 500 mg Documented by: Budesonide (Budesonide 1 Mg/2 Ml Nebu) 1 mg INHALATION RT-BID [facility] Last Admin: 06/04/20 20:16 Dose: 1 mg Documented by: Calamine (Calamine/Zinc Oxide Lotion 177 Ml Btl) 1 applic TOPICAL TID PRN PRN Reason: Skin Irritation Last Admin: 06/03/20 23:46 Dose: 1 applic Documented by: Famotidine (Famotidine 20 Mg Tab) 20 mg PO Q12HR [facility] Last Admin: 06/04/20 20:18 Dose: 20 mg Documented by: Formoterol Fumarate (Formoterol Fumarate 20 Mcg/2 Ml Nebu) 20 mcg INHALATION RT-BID [facility] Last Admin: 06/04/20 20:16 Dose: 20 mcg Documented by: Heparin Sodium (Porcine) (Heparin Sodium,Porcine 5,000 Unit/Ml 1 Ml Vial) 5,000 unit SQ Q8HR [facility] Last Admin: 06/04/20 23:57 Dose: 5,000 unit Documented by: Insulin Human Regular 100 unit (/ Sodium Chloride) 101 mls @ 0 mls/hr IV .Q0M [facility]; Protocol Last Titration: 06/05/20 00:04 Dose: 11 units/hr, 11.11 mls/hr Documented by: Ceftriaxone Sodium 1 gm/ (Sodium Chloride) 50 mls @ 100 mls/hr IVPB Q24H [facility] Last Admin: 06/04/20 23:58 Dose: 100 mls/hr Documented by: Lisinopril (Lisinopril 10 Mg Tab) 10 mg PO DAILY [facility] Last Admin: 06/04/20 09:56 Dose: 10 mg Documented by: Metformin HCl (Metformin 500 Mg Tab) 1,000 mg PO BID-W/MEALS [facility] Last Admin: 06/04/20 20:18 Dose: 1,000 mg Documented by: Naloxone HCl (Naloxone 0.4 Mg/Ml 1 Ml Vial) 0.2 mg IV Q2M PRN PRN Reason: Opioid Reversal Prednisone (Prednisone 20 Mg Tab) 40 mg PO DAILY [facility] Objective - Vital Signs Vital signs: Vital Signs Temp 97.7 F 06/04/20 16:07 Pulse 76 06/04/20 16:07 Resp 18 06/04/20 16:07 BP 149/82 06/04/20 16:07 Pulse Ox 96 06/04/20 16:07 Intake & Output 06/03/20 06/04/20 06/04/20 18:59 06:59 18:59 Intake Total 615.137 111.765 319.683 Output Total 320 800 Balance 615.137 -208.235 -480.317 Weight 118 kg 118 kg Intake: Intake, IV Titration 135.137 111.765 97.683 Amount Insulin Regular 100 unit 135.137 111.765 97.683 In Sodium Chloride 0.9% 100 ml @ Titrate IV .Q0M [facility] Rx#:[id number] Oral 480 222 Output: Urine 320 800 Other: Voiding Method Toilet Toilet Urinal Urinal # Voids 0 1 # Bowel Movements 0 - Exam -GENERAL: The patient is alert and oriented x3, not in any acute distress. Obese HEENT: Pupils are round and equally reacting to light. EOMI. No scleral icterus. No conjunctival pallor. CARDIOVASCULAR: S1 and S2 present. No murmurs, rubs, or gallops. PULMONARY: bilateral scattered wheezing . No crackles. Decreased air entry on both sides. Barrel shaped chest ABDOMEN: Soft, nontender, nondistended, normoactive bowel sounds. No palpable organomegaly. MUSCULOSKELETAL: No joint swelling or deformity. EXTREMITIES: No cyanosis, clubbing, or pedal edema. NEUROLOGICAL: Gross neurological examination did not reveal any focal deficits. SKIN: Psoriatic lesions on her extremities. - Labs CBC & Chem 7: 06/03/20 07:21 06/03/20 07:21 Labs: Abnormal Lab Results - Last 24 Hours (Table) 06/03/20 06/03/20 06/03/20 Range/Units 19:58 21:54 23:57 POC Glucose (mg/dL) 354 H 320 H 282 H (75-99) mg/dL 06/04/20 06/04/20 06/04/20 Range/Units 01:59 04:00 06:03 POC Glucose (mg/dL) 184 H 177 H 174 H (75-99) mg/dL 06/04/20 06/04/20 06/04/20 Range/Units 08:20 10:05 11:46 POC Glucose (mg/dL) 245 H 297 H 212 H (75-99) mg/dL 06/04/20 06/04/20 06/04/20 Range/Units 14:35 16:09 18:02 POC Glucose (mg/dL) 313 H 306 H 392 H (75-99) mg/dL Assessment and Plan Assessment: Assessment: Acute COPD exacerbation Acute on chronic hypoxic respiratory failure Hyperglycemia,with new-onset diabetes, [id number] Acute kidney injury Elevated liver enzymes Nicotine dependence History of psoriasis Plan: Continue with antibiotics in the form of ceftriaxone and Zithromax. IV Solu-Medrol dose has been decreased due to persistent hyperglycemia. COVID 19 - negative. Patient's creatinine is trended down. Patient continues to be on i nsulin drip. Over the past 24 hours patient required around 130 to 140 units of insulin. We will discontinue the insulin drip and start him on 30 units of Lantus with 15 units of aspart 3 times daily AC along with sliding scale . Discussed in detail with the patient that his insulin drip has to be discontinued and his insulin should be adjusted for him to be discharged home in a stable condition. Patient agreed to stay. GI/DVT prophylaxsis. Further recommendations to follow depending on the progress of the patient.
[2020-06-05] MEDS ORDERED: INSULIN DETEMIR (LEVEMIR) 100 UNIT/ML SYR SQ ONE (02:30)
[2020-06-05 02:34] LABS: Glucose,Whole Blood 265 mg/dL (75-99)
[2020-06-05 03:51] VITALS: TEMP 97.7
[2020-06-05] MEDS: metFORMIN 500 MG TAB PO SCH (06:41)
[2020-06-05 07:09] LABS: Glucose,Whole Blood 228 mg/dL (75-99)
[2020-06-05] MEDS: INSULIN ASPART (NovoLOG) 100 UNIT/ML VIAL SQ SCH ×4 (07:27→12:07)
[2020-06-05] MEDS: IPRATROPIUM-ALBUTEROL 3 ML NEB INHALATION SCH ×3 (08:13→15:53)
[2020-06-05] MEDS: FORMOTEROL FUMARATE 20 MCG/2 ML NEBU INHALATION SCH (08:13)
[2020-06-05] MEDS: BUDESONIDE 1 MG/2 ML NEBU INHALATION SCH (08:13)
[2020-06-05 08:26] LABS: Basophils # (A) 0.1 k/uL (0-0.2); Basophils % (A) 0 %; Eosinophils # (A) 0.1 k/uL (0-0.7); Eosinophils % (A) 1 %; HCT 47.1 % (39.0-53.0); HGB 14.7 gm/dL (13.0-17.5); Lymphocytes # (A) 2.9 k/uL (1.0-4.8); Lymphocytes % (A) 15 %; MCHC 31.2 g/dL (31.0-37.0); MCV 89.8 fL (80.0-100.0); Mean Platelet Volume 7.6; Monocytes # (A) 1.2 k/uL (0-1.0); Monocytes % (A) 6 %; Neutrophils # (A) 15.2 k/uL (1.3-7.7); Neutrophils % (A) 77 %; Platelet Count 372 k/uL (150-450); RBC 5.24 m/uL (4.30-5.90); RDW 14.9 % (11.5-15.5); WBC 19.8 k/uL (3.8-10.6)
[2020-06-05] MEDS ORDERED: predniSONE 20 MG TAB PO SCH (09:00)
[2020-06-05] MEDS ORDERED: CLOTRIMAZOLE 1% CREAM 15 GM TUBE TOPICAL SCH (09:15)
[2020-06-05] MEDS ORDERED: diphenhydrAMINE 2% CREAM 28.4 GM TUBE TOPICAL PRN (09:16)
[2020-06-05] MEDS ORDERED: MD COMMUNICATION TO PHARMACY 1 EACH MISC PO PRN (09:17)
[2020-06-05] MEDS: AZITHROMYCIN 500 MG TAB PO SCH (09:59)
[2020-06-05] MEDS: amLODIPine 10 MG TAB PO SCH (09:59)
[2020-06-05] MEDS: lisinopriL 10 MG TAB PO SCH (09:59)
[2020-06-05] MEDS: FAMOTIDINE 20 MG TAB PO SCH (09:59)
[2020-06-05] MEDS: HEPARIN SODIUM,PORCINE 5,000 UNIT/ML 1 ML VIAL SQ SCH (10:00)
[2020-06-05 11:52] LABS: Glucose,Whole Blood 260 mg/dL (75-99)
[2020-06-05 13:19] VITALS: RESP 16
[2020-06-05 14:42] LABS: Glucose,Whole Blood 310 mg/dL (75-99)
[2020-06-05 16:33] VITALS: BP 172/86; PULSE 88
[2020-06-05 16:44] LABS: Glucose,Whole Blood 358 mg/dL (75-99)
[2020-06-05] MEDS ORDERED: INSULIN DETEMIR (LEVEMIR) 100 UNIT/ML SYR SQ SCH ×2 (18:00→21:00)
--- NOTE | 2020-06-06 00:02 | P.DS ---
Providers Date of admission: 05/30/20 22:10 Attending physician: Eufemia Varela Consults: 05/30/20 22:08 Consult Physician Urgent Consulting Provider: [facility] Consult Reason/Comments: aecopd Do you want consulting provider notified?: Yes Primary care physician: Dioni Lima Hospital Course: Acute COPD exacerbation , with dyspnea and coughing blood secondary to tracheobronchitis Acute on chronic hypoxic respiratory failure, improved Hyperglycemia, new onset diabetes mellitus with hemoglobin A1c more than 13% . Inguinal fungal infection, mostly with tinea cruris acute kidney injury, Back to normal Elevated liver enzymes, Improving Nicotine dependence History of psoriasis Hospital course: This is a pleasant 59 years old male with past medical history of COPD, diabetes mellitus, psoriasis nicotine dependence. Presents because of dyspnea, polyuria/polydipsia and hyperglycemia. Patient is a known case of COPD, he quit smoking 4 years ago, he follows up with Dr. Carvajal his bulk filler who did a virtual visit with him 3 days ago and prescribed him taper steroids, patient notes since then he has drinking a lot of water and peeing a lot of water for the last 3 weeks He borrowed glucometer from a friend and checked his sugar noticed to be high so I decided to come to emergency room. Also patient was complaining of from dyspnea with some white coughing with the total amount of pinkish coloration suspicious for blood Patient also on home oxygen about 2-3 L/m CTA of the chest: No pulmonary embolism, lungs are clear to consolidation, no pleural effusion, fatty infiltration of the liver. Chest x-ray: No active cardiopulmonary disease patient has been evaluated by bulk filler and he has been treated for acute COPD exacerbation with Acute tracheobronchitis, he was treated with antibiotics Zithromax and ceftriaxone and Solu-Medrol, patient filled interval improvement in his dyspnea improved his coughing blood was stopped, and he was switched to prednisone 40 mg daily. Patient found to have elevated hemoglobin A1c at 13% which is thought to be new onset diabetes, aggravated by steroids , Patient was started on metformin 1000 mg as well as Levemir 35 units at bedtime. Glucometer is provided and patient was counseled extensively about how to monitor his sugar with close outpatient follow-up, also to check his sugar 4 times a day and to come to the hospital if glucose more than 400 less than 70, also he was educated by the signs symptoms of hypoglycemia and how to monitor it. (Patient was educated and injected himself with insulin) On the day of discharge patient feels much better, his dyspnea is improved, no chest pain or abdominal pain, no nausea vomiting, no headache or weakness, no change in urine or bowel habits. No fever. However he was complaining of from some itching with rash and the both groin areas suspicious for fungal infection and he was started on clotrimazole. Patient feels he is ready to go home today Patient was cleared for discharge by the pulmonary service Problems and management plan were discussed with the patient and he verbalized understanding and acceptance Patient was found stable and can be discharged home however he needs follow-up as an outpatient. Patient was instructed to follow up with PCP Dr. Wheatley within one week and patient agrees rate also patient was instructed to follow up with Dr. Jimenez in 1-2 weeks and he agrees (patient wants to switch pulmonary service to Dr. Jimenez) and he agrees with his appointment on 06/12. Staff try to make appointment for the patient with Dr. José mother requested the patient to contact him and he agrees, also the elementary education teacher Dr. Houston requested referral from PCP and patient agrees as well Gen: patient is a AAOx3, no distress. Morbid obesity CVS: S1-S2, RRR, no murmur Lungs: B/L CTA, no wheezing. Oxygen via nasal cannula at 2-3 L/m Abdomen: soft, no distention, no tenderness, positive bowel sounds Extremity: no leg edema or induration. Bilateral groin rash Time spent more than 35 minutes Patient Condition at Discharge: Stable Plan - Discharge Summary New Discharge Prescriptions: New Fluticasone/Salmeterol [Advair 500-50 Diskus] 1 inhalation PO BID 30 Days #1 diskus diphenhydrAMINE & Zinc Cream [Benadryl Cream] 1 applic TOPICAL BID PRN applic PRN Reason: Itching Cefuroxime Axetil [Ceftin] 500 mg PO BID 5 Days #10 tab metFORMIN HCL [Glucophage] 1,000 mg PO BID-W/MEALS #120 tab Insulin Detemir (Levemir) [Levemir] 35 unit SQ HS #1 vial Clotrimazole Cream [Lotrimin Cream] 1 applic TOPICAL BID #1 applic INSULIN ASPART (NovoLOG) [NovoLOG (formulary)] 15 unit SQ AC-TID #1 vial Famotidine [Pepcid] 20 mg PO Q12HR 15 Days #30 tab predniSONE 10 mg PO DIRECTED #36 tab Albuterol Inhaler [Ventolin Hfa Inhaler] 2 puff INHALATION RT-QID PRN #1 inh PRN Reason: Shortness Of Breath Or Wheezing Azithromycin [Zithromax] 500 mg PO DAILY #1 tab Continue Ipratropium-Albuterol Nebulize [Duoneb 0.5 mg-3 mg/3 ml Soln] 3 ml INHALATION RT-QID #120 ampul.neb Beclomethasone Dip 80 Mcg/Puff [Qvar 80 mcg] 1 puff INHALATION RT-BID Atorvastatin Calcium [Lipitor] 20 mg PO HS amLODIPine [Norvasc] 10 mg PO DAILY #30 tab Montelukast [Singulair] 10 mg PO HS #30 tab lisinopriL [Zestril] 10 mg PO DAILY #30 tab Discharge Medication List Ipratropium-Albuterol Nebulize [Duoneb 0.5 mg-3 mg/3 ml Soln] 3 ml INHALATION RT-QID #120 ampul.neb 03/10/16 [Rx] Atorvastatin Calcium [Lipitor] 20 mg PO HS 07/30/19 [History] Beclomethasone Dip 80 Mcg/Puff [Qvar 80 mcg] 1 puff INHALATION RT-BID 07/30/19 [History] Montelukast [Singulair] 10 mg PO HS #30 tab 08/01/19 [Rx] amLODIPine [Norvasc] 10 mg PO DAILY #30 tab 08/01/19 [Rx] lisinopriL [Zestril] 10 mg PO DAILY #30 tab 08/01/19 [Rx] Fluticasone/Salmeterol [Advair 500-50 Diskus] 1 inhalation PO BID 30 Days #1 diskus 06/03/20 [Rx] Albuterol Inhaler [Ventolin Hfa Inhaler] 2 puff INHALATION RT-QID PRN #1 inh 06/05/20 [Rx] Azithromycin [Zithromax] 500 mg PO DAILY #1 tab 06/05/20 [Rx] Cefuroxime Axetil [Ceftin] 500 mg PO BID 5 Days #10 tab 06/05/20 [Rx] Clotrimazole Cream [Lotrimin Cream] 1 applic TOPICAL BID #1 applic 06/05/20 [Rx] Famotidine [Pepcid] 20 mg PO Q12HR 15 Days #30 tab 06/05/20 [Rx] INSULIN ASPART (NovoLOG) [NovoLOG (formulary)] 15 unit SQ AC-TID #1 vial 06/05/20 [Rx] Insulin Detemir (Levemir) [Levemir] 35 unit SQ HS #1 vial 06/05/20 [Rx] diphenhydrAMINE & Zinc Cream [Benadryl Cream] 1 applic TOPICAL BID PRN applic 1 08/05/19 [Rx] metFORMIN HCL [Glucophage] 1,000 mg PO BID-W/MEALS #120 tab 06/05/20 [Rx] predniSONE 10 mg PO DIRECTED #36 tab 06/05/20 [Rx] Follow up Appointment(s)/Referral(s): Roxi Hernandez MD [STAFF PHYSICIAN] - 06/12/20 9:30 am (THURSDAY) Janie Wheatley MD [Primary Care Provider] - 1-2 days (Office is requesting that you call and schedule your own appointment. Please call to make a follow up appointment.) Karri Lugo MD [REFERRING] - 2 Weeks (new onset diabetes NEEDS REFERRAL please obtain from PCP) Mesha Diane MD [STAFF PHYSICIAN] - 1 Week (elementary education teacher for your diabetes mellitus ) Patient Instructions/Handouts: Gestational Diabetes (DC) Activity/Diet/Wound Care/Special Instructions: low carbohydrate diet , heart healthy diet activity is limited till you see your doctor Discharge Disposition: HOME WITH HOME HEALTH SERVICES
== END 2020-06-05 18:00 | disposition home or self-care (01) | DRG 190 ==
LOC: EC 19:09 → 3SCARD 22:10
PROVIDERS: ADMIT Hospitalist; ATTEND Hospitalist
PROC: 5A09557 Assistance with Respiratory Ventilation, Greater than 96 Consecutive Hours, Continuous Positive Airway Pressure (ICD-10-PCS; principal; 2020-06-01)
DX: J44.1 Chronic obstructive pulmonary disease with (acute) exacerbation (principal); J96.21 Acute and chronic respiratory failure with hypoxia; R04.2 Hemoptysis; N17.9 Acute kidney failure, unspecified; L40.9 Psoriasis, unspecified; Z20.828 Contact with and (suspected) exposure to other viral communicable diseases; E66.01 Morbid (severe) obesity due to excess calories; E78.5 Hyperlipidemia, unspecified; F17.210 Nicotine dependence, cigarettes, uncomplicated; G47.33 Obstructive sleep apnea (adult) (pediatric); R74.8 Abnormal levels of other serum enzymes; I10 Essential (primary) hypertension; T38.0X5A Adverse effect of glucocorticoids and synthetic analogues, initial encounter; J44.0 Chronic obstructive pulmonary disease with (acute) lower respiratory infection; J20.9 Acute bronchitis, unspecified; E11.65 Type 2 diabetes mellitus with hyperglycemia; B35.6 Tinea cruris; Z79.4 Long term (current) use of insulin; Z68.38 Body mass index [BMI] 38.0-38.9, adult; Z79.899 Other long term (current) drug therapy; Z99.81 Dependence on supplemental oxygen; Z86.19 Personal history of other infectious and parasitic diseases; Z90.89 Acquired absence of other organs; Z98.890 Other specified postprocedural states; Z82.5 Family history of asthma and other chronic lower respiratory diseases
CPT/HCPCS: 36415; 71046; 71275; 80048; 80053; 80061; 80076; 81003; 83036; 83605; 83880; 84484; 85025; 85379; 85610; 85730; 87070; 87205; 87502; 93005; 93306; 94640; 94760; 96361; 96374; 99285

== ENCOUNTER 2020-11-25 15:00 | Inpatient (IN) | payer OTHER ==
[2020-11-25] MEDS ORDERED: ACETAMINOPHEN TAB 500 MG TAB PO STA (15:18)
[2020-11-25] MEDS ORDERED: methylPREDNISolone SOD SUCCI 125 MG/2 ML VIAL IV STA (15:19)
[2020-11-25] MEDS ORDERED: ALBUTEROL HFA INHALER INHALATION STA (15:19)
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
--- NOTE | 2020-11-25 15:40 | XR ---
EXAMINATION TYPE: XR chest 1V portable DATE OF EXAM: 11/25/2020 COMPARISON: 05/30/2020 HISTORY: Pneumonia. Short of breath. TECHNIQUE: Single view FINDINGS: There is some infiltrate right lung base. Heart size is normal. There are no hilar masses. There are chest leads. There is no heart failure. IMPRESSION: There is some right lower lobe pneumonia that is new compared to old exam. Normal heart s ize.
[2020-11-25 16:09] LABS: Basophils # (A) 0.2 k/uL (0-0.2); Basophils % (A) 1 %; Eosinophils # (A) 0.1 k/uL (0-0.7); Eosinophils % (A) 1 %; HCT 39.3 % (39.0-53.0); HGB 13.4 gm/dL (13.0-17.5); Lymphocytes # (A) 1.1 k/uL (1.0-4.8); Lymphocytes % (A) 9 %; MCH 27.9 pg (25.0-35.0); MCHC 34.1 g/dL (31.0-37.0); MCV 81.9 fL (80.0-100.0); Mean Platelet Volume 7.8; Monocytes # (A) 1.2 k/uL (0-1.0); Monocytes % (A) 10 %; Neutrophils # (A) 9.4 k/uL (1.3-7.7); Neutrophils % (A) 79 %; Platelet Count 261 k/uL (150-450); RDW 15.3 % (11.5-15.5); WBC 11.9 k/uL (3.8-10.6)
[2020-11-25 16:25] LABS: Albumin 4.2 g/dL (3.5-5.0); C Reactive Protein 5.6 mg/dL (<1.0); Calcium 9.3 mg/dL (8.4-10.2); Magnesium 1.9 mg/dL (1.6-2.3); Total Bilirubin 0.4 mg/dL (0.2-1.3); Total Protein 7.5 g/dL (6.3-8.2)
[2020-11-25 16:33] LABS: Potassium 4.7 mmol/L (3.5-5.1)
[2020-11-25 16:36] LABS: INR 0.9 (<1.2); Partial Thromboplastin Time 20.6 sec (22.0-30.0); Prothrombin Time 9.8 sec (9.0-12.0)
[2020-11-25 16:49] LABS: D-Dimer 0.71 mg/L FEU (<0.60)
[2020-11-25] MEDS ORDERED: IPRATROPIUM-ALBUTEROL 3 ML NEB INHALATION PRN (17:13)
[2020-11-25] MEDS ORDERED: diphenhydrAMINE 2% CREAM 28.4 GM TUBE TOPICAL PRN (19:01)
[2020-11-25] MEDS ORDERED: ASCORBIC ACID 500 MG TAB PO SCH (19:15)
[2020-11-25] MEDS ORDERED: ENOXAPARIN 60 MG/0.6 ML SYRINGE SQ SCH (19:15)
[2020-11-25 20:00] LABS: Glucose,Whole Blood 197 mg/dL (75-99)
[2020-11-25] MEDS ORDERED: ALBUTEROL HFA INHALER INHALATION SCH (20:00)
[2020-11-25] MEDS ORDERED: IPRATROPIUM-ALBUTEROL 3 ML NEB INHALATION SCH (20:00)
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
--- NOTE | 2020-11-25 20:08 | CT ---
EXAMINATION TYPE: CT angio chest DATE OF EXAM: 11/25/2020 COMPARISON: 05/30/2020 HISTORY: PE CT DLP: 817.1 mGycm Automated exposure control for dose reduction was used. CONTRAST: Performed with IV Contrast, patient injected with 100 mL of Isovue 370. There are 3-D post processed images. There is patchy atelectasis in the mid and lower lung xiao. Heart size is normal. There is no peric ardial effusion. Thoracic aorta is intact. There is no aneurysm or dissection. There is no mediastina l adenopathy. There are no hilar masses. There is normal contrast opacification of the pulmonary wally ryann. There are no filling defects. There is mild pleural reaction at the lung bases. Thoracic spine is intact. There is fatty infiltrati on of the liver. IMPRESSION: No evidence of pulmonary embolism. There is pleural reaction and patchy atelectasis in the lower lung xiao which is new compared to old exam.
[2020-11-25] MEDS: CHOLECALCIFEROL 25 MCG (1000 IU) TABLET PO SCH (20:10)
[2020-11-25] MEDS: ZINC SULFATE 220 MG CAP PO SCH (20:10)
[2020-11-25] MEDS: MONTELUKAST 10 MG TAB PO SCH (20:11)
[2020-11-25] MEDS: ATORVASTATIN 20 MG TAB PO SCH (20:11)
[2020-11-25] MEDS: methylPREDNISolone SOD SUCCI 125 MG/2 ML VIAL IV SCH (20:12)
[2020-11-25] MEDS: INSULIN ASPART (NovoLOG) 100 UNIT/ML VIAL SQ SCH (20:13)
[2020-11-25] MEDS: INSULIN DETEMIR (LEVEMIR) 100 UNIT/ML SYR SQ SCH (20:13)
[2020-11-25] MEDS: ALBUTEROL HFA INHALER INHALATION SCH (20:27)
[2020-11-25] MEDS: SYMBICORT 160-4.5 MCG INHALER INHALATION SCH (20:28)
[2020-11-25] MEDS: TRIAMCINOLONE ACET 0.1% OINTMENT 15 GM TUBE TOPICAL SCH ×2 (20:43→22:38)
[2020-11-25 23:29] LABS: Ferritin 191.5 ng/mL (22.0-322.0)
[2020-11-26] MEDS: HYDROcodone/APAP 5-325MG 1 EACH TAB PO PRN (01:44)
[2020-11-26] MEDS: methylPREDNISolone SOD SUCCI 125 MG/2 ML VIAL IV SCH ×4 (01:46→17:09)
[2020-11-26 01:54] LABS: Appearance,Urine Clear (Clear); Bacteria,Urine Rare /hpf; Bilirubin,Urine Negative (Negative); Blood,Urine Negative (Negative); Color,Urine Yellow; Glucose,Urine (UA) 3+ (Negative); Ketones,Urine Negative (Negative); Leukocyte Esterase,Urine Negative (Negative); Mucus,Urine Rare /hpf; Nitrite,Urine Negative (Negative); PH, Urine 5.5 (5.0-8.0); Protein,Urine 1+ (Negative); RBC,Urine 2 /hpf (0-5); Squamous Epithelial Cell,Urine <1 /hpf (0-4); Urobilinogen,Urine <2.0 mg/dL (<2.0); WBC,Urine 2 /hpf (0-5)
[2020-11-26 01:55] LABS: Specific Gravity,Urine >1.050 (1.001-1.035)
[2020-11-26] MEDS: SYMBICORT 160-4.5 MCG INHALER INHALATION SCH ×2 (07:21→20:15)
[2020-11-26] MEDS: ALBUTEROL HFA INHALER INHALATION SCH ×4 (07:21→20:14)
[2020-11-26] MEDS: TIOTROPIUM 2.5 MCG INHALER INHALATION SCH (07:22)
[2020-11-26 08:58] LABS: Basophils # (A) 0.01 X 10*3/uL (0.00-0.10); Basophils % (A) 0.1 %; Eosinophils # (A) 0 X 10*3/uL (0.04-0.35); Eosinophils % (A) 0 %; HCT 41.4 % (39.6-50.0); HGB 13.7 g/dL (13.0-17.0); Lymphocytes # (A) 0.98 X 10*3/uL (0.90-5.00); Lymphocytes % (A) 12.3 %; MCHC 33.1 g/dL (32.0-37.0); MCV 81.7 fL (80.0-97.0); Mean Platelet Volume 10.5 fL (9.5-12.2); Monocytes # (A) 0.17 X 10*3/uL (0.20-1.00); Monocytes % (A) 2.1 %; Neutrophils # (A) 6.75 X 10*3/uL (1.80-7.70); Neutrophils % (A) 85.1 %; Platelet Count 347 X 10*3/uL (140-440); RBC 5.07 X 10*6/uL (4.40-5.60); RDW 15.3 % (11.5-14.5); WBC 7.94 X 10*3/uL (4.50-10.00)
[2020-11-26] MEDS ORDERED: REMDESIVIR 200 MG in SODIUM CHLORIDE 0.9% 250 ML IVPB ONE (09:00)
[2020-11-26 09:11] LABS: African American GFR (CKD) 67.8 (60.0-200.0); Anion Gap 8.3 mmol/L (4.00-12.00); BUN/Creat Ratio 21.54 Ratio (12.00-20.00); Calcium 9.3 mg/dL (8.7-10.3); Carbon Dioxide 26.7 mmol/L (21.6-31.8); Non-African American GFR(CKD) 58.5 (60.0-200.0); Potassium 5.2 mmol/L (3.5-5.5)
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
[2020-11-26 09:38] LABS: Glucose,Whole Blood 272 mg/dL (75-99)
[2020-11-26] MEDS: amLODIPine 10 MG TAB PO SCH (09:48)
[2020-11-26] MEDS: CHOLECALCIFEROL 25 MCG (1000 IU) TABLET PO SCH (09:48)
[2020-11-26] MEDS: PANTOPRAZOLE 40 MG TABLET PO SCH (09:48)
[2020-11-26] MEDS: ASCORBIC ACID 500 MG TAB PO SCH (09:48)
[2020-11-26] MEDS: lisinopriL 20 MG TAB PO SCH (09:48)
[2020-11-26] MEDS: ZINC SULFATE 220 MG CAP PO SCH (09:48)
[2020-11-26] MEDS: INSULIN ASPART (NovoLOG) 100 UNIT/ML VIAL SQ SCH ×7 (09:49→20:33)
[2020-11-26] MEDS: ENOXAPARIN 40 MG/0.4 ML SYRINGE SQ SCH (09:50)
[2020-11-26 12:48] LABS: Glucose,Whole Blood 329 mg/dL (75-99)
--- NOTE | 2020-11-26 15:54 | PN ---
PROGRESS NOTE DATE OF SERVICE: 11/26/2020 This 60-year-old gentleman admitted with the acute COVID-19 infection with acute COVID- 19 interstitial pneumonia is being closely monitored at this time. Dr. Mcclure is following the patient. The patient is also hypoxic. The patient was started on remdesivir. No chest pain. No palpitations. No fever. The patient also had a CTA which showed extensive bilateral infiltrates and no evidence of pulmonary embolism. The patient is being closely monitored. There is no history of any fever, rigor or chills. Past medical history reviewed. REVIEW OF SYSTEMS: CARDIOVASCULAR SYSTEM: No angina, palpitations. RESPIRATORY SYSTEM: As mentioned earlier. GI: As mentioned earlier. : No dysuria or retention. NERVOUS SYSTEM: No numbness, weakness. CURRENT MEDICATIONS: Reviewed. They include [place], insulin, Xanax, Norvasc, Lipitor, Symbicort, Lovenox, Zestril, Solu-Medrol, Singulair. PHYSICAL EXAMINATION: Patient is alert, oriented x3. Pulse 88, blood pressure 121/70, respiration 24, temperature 98.2, pulse ox 96% on 6 L. HEENT: Conjunctivae normal. NECK: No jugular venous distention. CARDIOVASCULAR SYSTEM: S1, S2 muffled. RESPIRATORY SYSTEM: Breath sounds diminished at the bases. A few scattered rhonchi and crackles. ABDOMEN: Soft, non-tender. LEGS: No edema. No swelling. NERVOUS SYSTEM: No focal deficit. LABS: WBC 7.94. Eosinophils are zero. ASSESSMENT: 1. Acute COVID-19 infection with acute bilateral interstitial pneumonia with acute hypoxic respiratory failure, on remdesivir. 2. Increased white count. 3. Lymphopenia. 4. Eosinophilopenia. 5. Increased D-dimer. 6. Elevated plasma lactic acid. 7. History of chronic obstructive pulmonary disease. 8. History of psoriasis. 9. History of degenerative joint disease. 10.History of tonsillectomy. 11.Obesity with body mass index of 35. RECOMMENDATIONS AND DISCUSSION: I recommend to continue current medications, continue with the monitoring, symptomatic treatment. Continue remdesivir. Current the rest of the medications. Prognosis is guarded because of multiple complex medical issues. Further recommendations to follow. MMODL / IJN: [id number] /
[2020-11-26 16:42] LABS: Glucose,Whole Blood 337 mg/dL (75-99)
[2020-11-26] MEDS: TRIAMCINOLONE ACET 0.1% OINTMENT 15 GM TUBE TOPICAL SCH ×2 (18:09→21:14)
[2020-11-26 20:31] LABS: Glucose,Whole Blood 348 mg/dL (75-99)
[2020-11-26] MEDS: MONTELUKAST 10 MG TAB PO SCH (20:33)
[2020-11-26] MEDS: ATORVASTATIN 20 MG TAB PO SCH (20:33)
[2020-11-26] MEDS: INSULIN DETEMIR (LEVEMIR) 100 UNIT/ML SYR SQ SCH (20:33)
[2020-11-27] MEDS: methylPREDNISolone SOD SUCCI 125 MG/2 ML VIAL IV SCH ×5 (00:08→23:52)
[2020-11-27] MEDS: ALPRAZolam 0.25 MG TAB PO PRN ×2 (06:14→23:52)
[2020-11-27] MEDS: ALBUTEROL HFA INHALER INHALATION SCH ×5 (07:22→20:12)
[2020-11-27] MEDS: TIOTROPIUM 2.5 MCG INHALER INHALATION SCH (07:22)
[2020-11-27] MEDS: SYMBICORT 160-4.5 MCG INHALER INHALATION SCH ×2 (07:22→20:10)
[2020-11-27 08:32] LABS: Glucose,Whole Blood 240 mg/dL (75-99)
--- NOTE | 2020-11-27 09:22 | P.PN ---
Subjective Progress Note Date: 11/27/20 Principal diagnosis: Shortness of breath. 60-year-old male, with history of COPD, diabetes, hypertension, and hyperlipidemia. The patient sees Dr. Wheatley as a primary doctor, and my partner, for his COPD. For the last for 5 days, the patient has been coming increasing shortness of breath, tightness in his chest, cough, with minimal to no phlegm reduction. The patient also had slight fever, loss of taste and smell. He does have muscle aches and joint aches. She did receive his initial Pfizer vaccine, 2 weeks ago, vaccine #1. Currently, he is in the ER, he is on O2 at 5 L by nasal cannula. Is not receiving any IV fluids. Appears to be relatively stable. He does use oxygen at home at about 3-4 L. He quit smoking or years ago. White count 7.94, hemoglobin 13.7, hematocrit 41.4, and platelet count 347,000. Sodium 136, potassium 5.2, chlorides 101, CO2 77, anion gap 8, BUN 28, creatinine 1.3. D-dimer was 0.71, and pro-calcitonin level was only 0.09. Progress note dated 11/27/2020. Patient was seen yesterday in consultation. He is currently now observation unit, room 154. He seems be doing relatively well. His complaints include a primarily shortness of breath, chest congestion, tightness, and cough. He does have a history of COPD, diabetes, hypertension, and hyperlipidemia. No new labs today. Chest x-ray and CAT scan from the are reviewed. Her only, he's on 4 L, saturation 94%, heart rate 57, respiratory rate 20, blood pressure 124/63, and temperature 97.8F. Objective - Vital Signs Vital signs: Vital Signs Temp 97.8 F 11/27/20 02:00 Pulse 57 L 11/27/20 02:00 Resp 20 11/27/20 02:00 BP 124/63 11/27/20 02:00 Pulse Ox 94 L 11/27/20 07:22 Intake & Output 11/26/20 11/27/20 11/27/20 18:59 06:59 18:59 Output Total 400 Balance -400 Weight 104.326 kg Output: Urine 400 Other: Voiding Method Toilet # Voids 3 - Exam No acute distress, oriented 3. Currently on 4 L with sats of 94%. HEENT examination is grossly unremarkable. Neck supple. Full range of motion. No adenopathy thyromegaly or neck vein distention. Cardiovascular examination reveals regular rhythm rate. S1-S2 normal. No S3 or S4. No discernible murmur noted. Heart rate 57 bpm. Lungs reveal bilateral rhonchi, and crackles. Breath sounds are equal bilaterally but diminished her out. Slight prolongation on forced maneuver. Mild expiratory wheezes noted. Abdomen soft bowel sounds are heard. No masses or tenderness. Extremities are intact. No cyanosis clubbing or edema. Skin is without rash or lesion. Neurologic examination is brief but nonfocal. - Labs CBC & Chem 7: 11/26/20 04:22 11/26/20 04:22 Labs: Abnormal Lab Results - Last 24 Hours (Table) 11/26/20 11/26/20 11/26/20 Range/Units 09:36 12:43 16:40 POC Glucose (mg/dL) 272 H 329 H 337 H (75-99) mg/dL 11/26/20 11/27/20 Range/Units 20:29 08:20 POC Glucose (mg/dL) 348 H 240 H (75-99) mg/dL Microbiology - Last 24 Hours (Table) 11/25/20 15:37 Blood Culture - Preliminary Blood No Growth after 24 hours 11/25/20 15:55 Blood Culture - Preliminary Blood No Growth after 24 hours Assessment and Plan Assessment: Acute hypoxemic respiratory failure, multifactorial, in part related to COVID 19 pneumonitis, and the patient's underlying COPD/COPD exacerbation. Chronic hypoxemic respiratory failure secondary to COPD, on home O2 at 3 L. History of diabetes mellitus. History of hypertension. History of hyperlipidemia. Previous history of heavy tobacco use, quit 4 years ago. History of psoriasis. Plan: Plan dated 11/26/2020. The patient is a candidate for REM. He is not sick enough at this time to get TOCI. The patient should also get vitamin C, vitamin D3, and zinc. In addition, the patient should get either Decadron or Solu-Medrol, along with Lovenox. His overall prognosis is guarded. We will continue to follow make recommendations were appropriate. The patient is normally on home O2 at 3 L. His oxygen requirements currently on 5 L. Additional recommendations and suggestions are forthcoming. Plan dated 11/27/2020. The patient did receive the usual medications including Solu-Medrol, Lovenox, vitamin C, vitamin D3, and zinc. We also thought the patient was a candidate for REM, and started receiving that yesterday. He was not a candidate for TOCI. He's currently on 4 L. Saturation is 94%. Typically uses 3 L at home. Additional recommendations and suggestions are forthcoming. He seemed to be moving in the correct direction. We will continue to follow make recommendations where appropriate. Time with Patient: Less than 30
[2020-11-27] MEDS: INSULIN ASPART (NovoLOG) 100 UNIT/ML VIAL SQ SCH ×7 (09:51→20:54)
[2020-11-27] MEDS: ZINC SULFATE 220 MG CAP PO SCH (09:52)
[2020-11-27] MEDS: amLODIPine 10 MG TAB PO SCH (09:52)
[2020-11-27] MEDS: CHOLECALCIFEROL 25 MCG (1000 IU) TABLET PO SCH (09:52)
[2020-11-27] MEDS: PANTOPRAZOLE 40 MG TABLET PO SCH (09:52)
[2020-11-27] MEDS: lisinopriL 20 MG TAB PO SCH (09:52)
[2020-11-27] MEDS: ASCORBIC ACID 500 MG TAB PO SCH (09:52)
[2020-11-27] MEDS: ENOXAPARIN 40 MG/0.4 ML SYRINGE SQ SCH (09:52)
[2020-11-27] MEDS: TRIAMCINOLONE ACET 0.1% OINTMENT 15 GM TUBE TOPICAL SCH ×2 (09:53→23:18)
[2020-11-27] MEDS: REMDESIVIR 100 MG in SODIUM CHLORIDE 0.9% 250 ML IVPB SCH (09:56)
[2020-11-27 11:49] LABS: Glucose,Whole Blood 287 mg/dL (75-99)
[2020-11-27 13:00] VITALS: BMI 34.9
--- NOTE | 2020-11-27 14:01 | US ---
EXAMINATION TYPE: US venous doppler duplex LE DATE OF EXAM: 11/27/2020 1:53 PM COMPARISON: NONE CLINICAL HISTORY: dvt. SIDE PERFORMED: Bilateral TECHNIQUE: The lower extremity deep venous system is examined utilizing real time linear array sonog aracelis with graded compression, doppler sonography and color-flow sonography. VESSELS IMAGED: Common Femoral Vein Deep Femoral Vein Greater Saphenous Vein * Femoral Vein Popliteal Vein Small Saphenous Vein * Proximal Calf Veins (* superficial vessels) Right Leg: Appears negative for DVT Left Leg: Appears negative for DVT IMPRESSION: Grayscale, color doppler, spectral doppler imaging performed of the deep veins of the lo wer extremities. There is normal flow, compressibility, vascular waveforms.
--- NOTE | 2020-11-27 16:12 | PN ---
PROGRESS NOTE DATE OF SERVICE: 11/27/2020 This 60-year-old gentleman was admitted with COVID-19 infection with acute bilateral interstitial pneumonia and acute hypoxic respiratory failure. The patient was started on remdesivir. Dr. Mcclure is following the patient closely. A CTA was done which showed no evidence of pulmonary embolism. Patchy infiltrates are noted. Past medical history reviewed. REVIEW OF SYSTEMS: CARDIOVASCULAR SYSTEM: No angina, palpitations. RESPIRATORY SYSTEM: As mentioned earlier. GI: As mentioned earlier. : No dysuria or retention. NERVOUS SYSTEM: No numbness, weakness. CURRENT MEDICATIONS: [place], Ventolin, Xanax, Norvasc, vitamins, Lipitor, Symbicort. PHYSICAL EXAMINATION: Patient is alert, oriented x3. Pulse 80, blood pressure 111/58, respiration 18, temperature 97.6, pulse ox 96% on 4 L. CPAP used at night. HEENT: Conjunctivae normal. NECK: No jugular venous distention. CARDIOVASCULAR SYSTEM: S1, S2 muffled. RESPIRATORY SYSTEM: Breath sounds diminished at the bases. Scattered rhonchi and crackles. ABDOMEN: Soft, obese, non-tender. LEGS: No edema. No swelling. NERVOUS SYSTEM: No focal deficit. LABS: Accu-Cheks 240, 287. Other labs are WBC 7.94. Eosinophils are zero. Glucose noted. COVID-19 is positive. ASSESSMENT: 1. Acute COVID-19 infection with acute bilateral interstitial pneumonia with acute hypoxic respiratory failure, on remdesivir. 2. 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 3. Increased white count. 4. Lymphopenia. 5. Eosinophilopenia. 6. Increased D-dimer with no evidence of pulmonary embolism. 7. Elevated plasma lactic acid. 8. History of chronic obstructive pulmonary disease. 9. History of psoriasis. 10.History of degenerative joint disease. 11.History of tonsillectomy. 12.Obesity with body mass index of 35. RECOMMENDATIONS AND DISCUSSION: I recommend to continue current medications, continue with the monitoring, symptomatic treatment. Otherwise, continue with remdesivir, bronchodilators, Lovenox. I would also recommend ultrasound of the legs to complete the workup. Prognosis is guarded. Further recommendations to follow. The blood sugar is elevated. I will continue the patient on Levemir and increase the dose of Levemir to 60 units at night. MMODL / IJN: [id number] /
[2020-11-27 16:42] LABS: Glucose,Whole Blood 366 mg/dL (75-99)
[2020-11-27 19:28] LABS: Glucose,Whole Blood 391 mg/dL (75-99)
[2020-11-27] MEDS: ATORVASTATIN 20 MG TAB PO SCH (20:54)
[2020-11-27] MEDS: MONTELUKAST 10 MG TAB PO SCH (20:54)
[2020-11-27] MEDS: INSULIN DETEMIR (LEVEMIR) 100 UNIT/ML SYR SQ SCH (21:03)
[2020-11-28] MEDS: methylPREDNISolone SOD SUCCI 125 MG/2 ML VIAL IV SCH ×3 (05:32→17:19)
[2020-11-28] MEDS: HYDROcodone/APAP 5-325MG 1 EACH TAB PO PRN (05:32)
[2020-11-28 07:26] LABS: Glucose,Whole Blood 264 mg/dL (75-99)
[2020-11-28] MEDS: TIOTROPIUM 2.5 MCG INHALER INHALATION SCH (07:40)
[2020-11-28] MEDS: SYMBICORT 160-4.5 MCG INHALER INHALATION SCH ×2 (07:40→20:06)
[2020-11-28] MEDS: ALBUTEROL HFA INHALER INHALATION SCH ×4 (07:40→20:06)
[2020-11-28] MEDS: INSULIN ASPART (NovoLOG) 100 UNIT/ML VIAL SQ SCH ×7 (07:44→20:56)
[2020-11-28] MEDS: PANTOPRAZOLE 40 MG TABLET PO SCH (07:45)
[2020-11-28] MEDS: ZINC SULFATE 220 MG CAP PO SCH (07:51)
[2020-11-28] MEDS: amLODIPine 10 MG TAB PO SCH (07:51)
[2020-11-28] MEDS: CHOLECALCIFEROL 25 MCG (1000 IU) TABLET PO SCH (07:51)
[2020-11-28] MEDS: ASCORBIC ACID 500 MG TAB PO SCH (07:52)
[2020-11-28] MEDS: lisinopriL 20 MG TAB PO SCH (07:52)
[2020-11-28] MEDS: ENOXAPARIN 40 MG/0.4 ML SYRINGE SQ SCH (07:52)
[2020-11-28] MEDS: TRIAMCINOLONE ACET 0.1% OINTMENT 15 GM TUBE TOPICAL SCH ×2 (08:49→21:02)
[2020-11-28] MEDS: REMDESIVIR 100 MG in SODIUM CHLORIDE 0.9% 250 ML IVPB SCH (09:22)
--- NOTE | 2020-11-28 10:44 | P.PN ---
Subjective Progress Note Date: 11/28/20 Principal diagnosis: COVID-19 pneumonia 60-year-old male, with history of COPD, diabetes, hypertension, and hyperlipidemia. The patient sees Dr. Wheatley as a primary doctor, and my partner, for his COPD. For the last for 5 days, the patient has been coming increasing shortness of breath, tightness in his chest, cough, with minimal to no phlegm reduction. The patient also had slight fever, loss of taste and smell. He does have muscle aches and joint aches. She did receive his initial Pfizer vaccine, 2 weeks ago, vaccine #1. Currently, he is in the ER, he is on O2 at 5 L by nasal cannula. Is not receiving any IV fluids. Appears to be relatively stable. He does use oxygen at home at about 3-4 L. He quit smoking or years ago. White count 7.94, hemoglobin 13.7, hematocrit 41.4, and platelet count 347,000. Sodium 136, potassium 5.2, chlorides 101, CO2 77, anion gap 8, BUN 28, creatinine 1.3. D-dimer was 0.71, and pro-calcitonin level was only 0.09. Progress note dated 11/27/2020. Patient was seen yesterday in consultation. He is currently now observation u [facility], room 154. He seems be doing relatively well. His complaints include a primarily shortness of breath, chest congestion, tightness, and cough. He does have a history of COPD, diabetes, hypertension, and hyperlipidemia. No new labs today. Chest x-ray and CAT scan from the are reviewed. Her only, he's on 4 L, saturation 94%, heart rate 57, respiratory rate 20, blood pressure 124/63, and temperature 97.8F. The patient is seen today 11/28/2020 in follow-up on the observation unit. He is currently sitting up at the bedside. Awake and alert in no acute distress. He is currently on oxygen at 4 L/m per nasal cannula. Alternating with CPAP. He is afebrile. Hemodynamically stable. Still dyspneic with minimal exertion. Dopplers of the lower extremities were negative for DVT. Blood cultures reveal no growth. Blood glucose 264. Day #3 of Remdesivir. Remains on IV Solu-Medr ol, Symbicort, Spiriva, albuterol, Lovenox, vitamin supplements. Objective - Vital Signs Vital signs: Vital Signs Temp 98.0 F 11/28/20 08:00 Pulse 64 11/28/20 08:00 Resp 18 11/28/20 08:00 BP 135/71 11/28/20 08:00 Pulse Ox 96 11/28/20 08:00 Intake & Output 11/27/20 11/28/20 11/28/20 18:59 06:59 18:59 Intake Total 240 150 Balance 240 150 Weight 104.326 kg Intake: Oral 240 150 Other: Voiding Method Toilet # Voids 1 - Exam GENERAL EXAM: Alert, pleasant 60-year-old gentleman, on 4 L nasal cannula, fairly comfortable in no apparent distress. HEAD: Normocephalic. EYES: Normal reaction of pupils, equal size. NOSE: Clear with pink turbinates. THROAT: No erythema or exudates. NECK: No masses, no JVD. CHEST: No chest wall deformity. LUNGS: Equal air entry with coarse crackles bilaterally, end expiratory wheeze, diminished CVS: S1 and S2 normal with no audible murmur, regular rhythm. ABDOMEN: No hepatosplenomegaly, normal bowel sounds, no guarding or rigidity. SPINE: No scoliosis or deformity SKIN: No rashes CENTRAL NERVOUS SYSTEM: No focal deficits, tone is normal in all 4 extremities. EXTREMITIES: There is no peripheral edema. No clubbing, no cyanosis. Peripheral pulses are intact. - Labs CBC & Chem 7: 11/26/20 04:22 11/26/20 04:22 Labs: Abnormal Lab Results - Last 24 Hours (Table) 11/27/20 11/27/20 11/27/20 Range/Units 11:47 16:40 19:27 POC Glucose (mg/dL) 287 H 366 H 391 H (75-99) mg/dL 11/28/20 Range/Units 07:20 POC Glucose (mg/dL) 264 H (75-99) mg/dL Microbiology - Last 24 Hours (Table) 11/25/20 15:37 Blood Culture - Preliminary Blood No Growth after 48 hours 11/25/20 15:55 Blood Culture - Preliminary Blood No Growth after 48 hours Assessment and Plan Assessment: 1 Acute hypoxemic respiratory failure secondary to acute COVID-19 pneumonitis with acute exacerbation of chronic obstructive pulmonary disease. Receiving Remdesivir 2 Acute on chronic hypoxemic respiratory failure, on home oxygen at 3 L 3 Diabetes Aaron 4 Hypertension 5 Hyperlipidemia 6 History of chronic tobacco dependence however quit 4 years ago 7 History of psoriasis 8 Obesity Plan: The patient was seen and evaluated by Dr. Ren James #3 of [place] Continue the current treatment plan Titrate the FiO2 as tolerated We will continue to follow I, the cosigning physician, performed a history & physical examination of the patient. Lungs sounds with bilateral coarse crackles, end expiratory wheeze, diminished. Maintaining good O2 saturations in the 90s on 4 L/m per nasal cannula. I discussed the assessment and plan of care with my nurse practitioner, Radha Bryant. I attest to the above note as dictated by her.
[2020-11-28 11:22] LABS: Glucose,Whole Blood 320 mg/dL (75-99)
--- NOTE | 2020-11-28 12:26 | P.PN ---
Subjective Patient is admitted for COVID-19 pneumonia and patient is on day 3 of Remdesivir. Patient is also on IV steroids. The patient still has some shortn ess of breath and mild fatigue although feels much better compared to admission. Patient is presently saturating well on 4 L of oxygen which probably can be tapered to 3 L Constitutional: As mentioned above Cardio vascular: denied any chest pain, palpitations Gastrointestinal denied any nausea vomiting Pulmonary: As mentioned in HPI Neurologic denied any new focal deficits All inpatient medications were reviewed and appropriate changes in these medications as dictated in the interval history and assessment and plan. Objective - Vital Signs Vital signs: Vital Signs Temp 98.2 F 11/28/20 11:00 Pulse 69 11/28/20 11:00 Resp 18 11/28/20 08:00 BP 147/75 11/28/20 11:00 Pulse Ox 97 11/28/20 11:00 Intake & Output 11/27/20 11/28/20 11/28/20 18:59 06:59 18:59 Intake Total 240 150 Balance 240 150 Weight 104.326 kg Intake: Oral 240 150 Other: Voiding Method Toilet # Voids 1 - Exam PHYSICAL EXAMINATION: GENERAL: The patient is alert and oriented x3, not in any acute distress. Well developed, well nourished. HEENT: Pupils are round and equally reacting to light. EOMI. No scleral icterus. No conjunctival pallor. Normocephalic, atraumatic. No pharyngeal erythema. No thyromegaly. CARDIOVASCULAR: S1 and S2 present. No murmurs, rubs, or gallops. PULMONARY: Bilateral crackles as well as expiratory wheezing ABDOMEN: Soft, nontender, nondistended, normoactive bowel sounds. No palpable organomegaly. MUSCULOSKELETAL: No joint swelling or deformity. EXTREMITIES: No cyanosis, clubbing, or pedal edema. NEUROLOGICAL: Gross neurological examination did not reveal any focal deficits. SKIN: No rashes. Note: Because of COVID 19 isolation, some of the history and physical exam findings are indirect and obtained from nursing staff, and other physician examinations to avoid unnecessary contact with the patient. - Labs CBC & Chem 7: 11/26/20 04:22 11/26/20 04:22 Labs: Abnormal Lab Results - Last 24 Hours (Table) 11/27/20 11/27/20 11/28/20 Range/Units 16:40 19:27 07:20 POC Glucose (mg/dL) 366 H 391 H 264 H (75-99) mg/dL 11/28/20 Range/Units 11:19 POC Glucose (mg/dL) 320 H (75-99) mg/dL Microbiology - Last 24 Hours (Table) 11/25/20 15:37 Blood Culture - Preliminary Blood No Growth after 48 hours 11/25/20 15:55 Blood Culture - Preliminary Blood No Growth after 48 hours Assessment and Plan Plan: -Acute hypoxic respiratory failure secondary to COPD exacerbation as well as COVID-19 pneumonia continue with systemic steroids, inhalational treatments, Remdesivir. -Chronic Hypoxic as well as hypercapnic respiratory failure secondary to COPD uses 3 L of oxygen at home -Type 2 diabetes mellitus -Hypertension -Hyperlipidemia -Obesity Plan: Wean off oxygen as tolerated complete Remdesivir therapy. Possibly of discharge in 2 days
[2020-11-28 16:50] LABS: Glucose,Whole Blood 349 mg/dL (75-99)
[2020-11-28] MEDS: ALPRAZolam 0.25 MG TAB PO PRN (17:19)
[2020-11-28 20:41] LABS: Glucose,Whole Blood 347 mg/dL (75-99)
[2020-11-28] MEDS: ATORVASTATIN 20 MG TAB PO SCH (20:56)
[2020-11-28] MEDS: MONTELUKAST 10 MG TAB PO SCH (20:56)
[2020-11-28] MEDS: INSULIN DETEMIR (LEVEMIR) 100 UNIT/ML SYR SQ SCH (20:56)
[2020-11-29] MEDS: methylPREDNISolone SOD SUCCI 125 MG/2 ML VIAL IV SCH ×3 (03:41→12:29)
[2020-11-29 05:48] VITALS: RESP 18
[2020-11-29 07:07] LABS: Glucose,Whole Blood 260 mg/dL (75-99)
[2020-11-29] MEDS: INSULIN ASPART (NovoLOG) 100 UNIT/ML VIAL SQ SCH ×4 (08:01→12:30)
[2020-11-29] MEDS: CHOLECALCIFEROL 25 MCG (1000 IU) TABLET PO SCH (08:08)
[2020-11-29] MEDS: ASCORBIC ACID 500 MG TAB PO SCH (08:08)
[2020-11-29] MEDS: amLODIPine 10 MG TAB PO SCH (08:08)
[2020-11-29] MEDS: ZINC SULFATE 220 MG CAP PO SCH (08:08)
[2020-11-29] MEDS: lisinopriL 20 MG TAB PO SCH (08:08)
[2020-11-29] MEDS: PANTOPRAZOLE 40 MG TABLET PO SCH (08:08)
[2020-11-29] MEDS: TRIAMCINOLONE ACET 0.1% OINTMENT 15 GM TUBE TOPICAL SCH (08:09)
[2020-11-29] MEDS: ENOXAPARIN 40 MG/0.4 ML SYRINGE SQ SCH (08:09)
[2020-11-29] MEDS: TIOTROPIUM 2.5 MCG INHALER INHALATION SCH (08:11)
[2020-11-29] MEDS: ALBUTEROL HFA INHALER INHALATION SCH ×2 (08:11→11:54)
[2020-11-29] MEDS: SYMBICORT 160-4.5 MCG INHALER INHALATION SCH (08:11)
[2020-11-29 08:58] VITALS: TEMP 98.9
[2020-11-29] MEDS: REMDESIVIR 100 MG in SODIUM CHLORIDE 0.9% 250 ML IVPB SCH (09:10)
[2020-11-29 09:12] LABS: ALT 94 U/L (4-49); AST 41 U/L (17-59); African American GFR (CKD) >90 (>60 ml/min/1.73 sqM); Albumin 3.9 g/dL (3.5-5.0); Alkaline Phosphatase 82 U/L (38-126); Anion Gap 7 mmol/L; Blood Urea Nitrogen 27 mg/dL (9-20); C Reactive Protein 1.3 mg/dL (<1.0); Calcium 9.1 mg/dL (8.4-10.2); Carbon Dioxide 32 mmol/L (22-30); Chloride 100 mmol/L (98-107); Glucose 322 mg/dL (74-99); LDH 541 U/L (313-618); Non-African American GFR(CKD) 88 (>60 ml/min/1.73 sqM); Potassium 5.7 mmol/L (3.5-5.1); Sodium 139 mmol/L (137-145); Total Bilirubin 0.3 mg/dL (0.2-1.3); Total Protein 6.8 g/dL (6.3-8.2)
[2020-11-29 11:19] LABS: Glucose,Whole Blood 323 mg/dL (75-99)
--- NOTE | 2020-11-29 11:19 | P.PN ---
Subjective Progress Note Date: 11/29/20 Principal diagnosis: COVID-19 pneumonia 60-year-old male, with history of COPD, diabetes, hypertension, and hyperlipidemia. The patient sees Dr. Wheatley as a primary doctor, and my partner, for his COPD. For the last for 5 days, the patient has been coming increasing shortness of breath, tightness in his chest, cough, with minimal to no phlegm reduction. The patient also had slight fever, loss of taste and smell. He does have muscle aches and joint aches. She did receive his initial Pfizer vaccine, 2 weeks ago, vaccine #1. Currently, he is in the ER, he is on O2 at 5 L by nasal cannula. Is not receiving any IV fluids. Appears to be relatively stable. He does use oxygen at home at about 3-4 L. He quit smoking or years ago. White count 7.94, hemoglobin 13.7, hematocrit 41.4, and platelet count 347,000. Sodium 136, potassium 5.2, chlorides 101, CO2 77, anion gap 8, BUN 28, creatinine 1.3. D-dimer was 0.71, and pro-calcitonin level was only 0.09. Progress note dated 11/27/2020. Patient was seen yesterday in consultation. He is currently now observation u [facility], room 154. He seems be doing relatively well. His complaints include a primarily shortness of breath, chest congestion, tightness, and cough. He does have a history of COPD, diabetes, hypertension, and hyperlipidemia. No new labs today. Chest x-ray and CAT scan from the are reviewed. Her only, he's on 4 L, saturation 94%, heart rate 57, respiratory rate 20, blood pressure 124/63, and temperature 97.8F. The patient is seen today 11/28/2020 in follow-up on the observation unit. He is currently sitting up at the bedside. Awake and alert in no acute distress. He is currently on oxygen at 4 L/m per nasal cannula. Alternating with CPAP. He is afebrile. Hemodynamically stable. Still dyspneic with minimal exertion. Dopplers of the lower extremities were negative for DVT. Blood cultures reveal no growth. Blood glucose 264. Day #3 of Remdesivir. Remains on IV Solu-Medr ol, Symbicort, Spiriva, albuterol, Lovenox, vitamin supplements. The patient is seen today 11/29/2020 follow-up on the observation unit. He is awake and alert in no acute distress. Sitting up at the bedside. He is on 4 L/m per nasal cannula and maintaining O2 saturation 96%. D-dimer 0.21. Sodium 139. Potassium 4.7. Creatinine 0.93. LDH 554. C-reactive protein 1.3. This is day #4 of Remdesivir. He remains on Lovenox, IV Solu-Medrol, bronchodilators, vitamin supplements. Objective - Vital Signs Vital signs: Vital Signs Temp 98.9 F 11/29/20 07:00 Pulse 87 11/29/20 08:00 Resp 18 11/29/20 08:00 BP 174/81 11/29/20 07:00 Pulse Ox 95 11/29/20 07:00 Intake & Output 11/28/20 11/29/20 11/29/20 18:59 06:59 18:59 Intake Total 850 400 Balance 850 400 Intake: Intake, IV Titration 250 Amount Remdesivir 100 mg In 250 Sodium Chloride 0.9% 250 ml @ 250 mls/hr IVPB DAILY [facility] Rx#:[id number] Oral 600 400 Other: Voiding Method Toilet # Voids 2 - Exam GENERAL EXAM: Alert, pleasant 60-year-old gentleman, on 4 L nasal cannula, fairly comfortable in no apparent distress. HEAD: Normocephalic. EYES: Normal reaction of pupils, equal size. NOSE: Clear with pink turbinates. THROAT: No erythema or exudates. NECK: No masses, no JVD. CHEST: No chest wall deformity. LUNGS: Equal air entry with coarse crackles bilaterally, end expiratory wheeze, diminished CVS: S1 and S2 normal with no audible murmur, regular rhythm. ABDOMEN: No hepatosplenomegaly, normal bowel sounds, no guarding or rigidity. SPINE: No scoliosis or deformity SKIN: No rashes CENTRAL NERVOUS SYSTEM: No focal deficits, tone is normal in all 4 extremities. EXTREMITIES: There is no peripheral edema. No clubbing, no cyanosis. Peripheral pulses are intact. - Labs CBC & Chem 7: 11/26/20 04:22 11/29/20 08:06 Labs: Abnormal Lab Results - Last 24 Hours (Table) 11/28/20 11/28/20 11/28/20 Range/Units 11:19 16:40 20:39 Potassium (3.5-5.1) mmol/L Carbon Dioxide (22-30) mmol/L BUN (9-20) mg/dL Glucose (74-99) mg/dL POC Glucose (mg/dL) 320 H 349 H 347 H (75-99) mg/dL ALT (4-49) U/L C-Reactive Protein (<1.0) mg/dL 11/29/20 11/29/20 Range/Units 07:04 08:06 Potassium 5.7 H (3.5-5.1) mmol/L Carbon Dioxide 32 H (22-30) mmol/L BUN 27 H (9-20) mg/dL Glucose 322 H (74-99) mg/dL POC Glucose (mg/dL) 260 H (75-99) mg/dL ALT 94 H (4-49) U/L C-Reactive Protein 1.3 H (<1.0) mg/dL Microbiology - Last 24 Hours (Table) 11/25/20 15:37 Blood Culture - Preliminary Blood No Growth after 72 hours 11/25/20 15:55 Blood Culture - Preliminary Blood No Growth after 72 hours Assessment and Plan Assessment: 1 Acute hypoxemic respiratory failure secondary to acute COVID-19 pneumonitis with acute exacerbation of chronic obstructive pulmonary disease. Receiving Remdesivir 2 Acute on chronic hypoxemic respiratory failure, on home oxygen at 3 L 3 Diabetes Aaron 4 Hypertension 5 Hyperlipidemia 6 History of chronic tobacco dependence however quit 4 years ago 7 History of psoriasis 8 Obesity Plan: The patient was seen and evaluated by Dr. Mcclure Day #4 of Remdesivir He is cleared for discharge from the pulmonary standpoint Complete 10 days of dexamethasone Continue bronchodilators Follow-up in the office in 3-4 weeks I, the cosigning physician, performed a history & physical examination of the patient. Lungs sounds with bilateral coarse crackles, end expiratory wheeze, diminished. Maintaining good O2 saturations in the 90s on 4 L/m per nasal cannula. I discussed the assessment and plan of care with my nurse practitioner, Radha Bryant. I attest to the above note as dictated by her.
[2020-11-29 12:11] VITALS: BP 136/73; PULSE 82
[2020-11-29] MEDS ORDERED: SODIUM POLYSTYRENE SULFONATE 15 GM/60 ML BOTTLE PO STA (12:31)
--- NOTE | 2020-11-29 13:03 | P.DS ---
Providers Date of admission: 11/26/20 11:48 Attending physician: Eufemia Varela Consults: 11/25/20 17:13 Consult Physician Routine Consulting Provider: Roxi Hernandez Consult Reason/Comments: COPD, COVID PNA Do you want consulting provider notified?: Yes Primary care physician: [facility] Course: Patient is admitted for COVID-19 pneumonia and patient is on day 3 of Remdesivir. Patient is also on IV steroids. The patient still has some shortness of breath and mild fatigue although feels much better compared to admission. Patient is presently saturating well on 4 L of oxygen which probably can be tapered to 3 L. 11/29/2020 Patient received 4 doses of Remdesivir. And patient will be discharged today on weaning dose of steroids. Patient potassium is high will give a dose of capsulate patient will be asked to hold off on lisinopril and today and tomorrow and we'll cut down the lisinopril to 10 mg once his stress taking it again. Patient will be discharged on low potassium diet patient will need to be tested for basic metabolic profile on his visit to PCP. Patient is presently on 3 years of oxygen now and will require 3 L of oxygen at this time. PHYSICAL EXAMINATION: GENERAL: The patient is alert and oriented x3, not in any acute distress. Well developed, well nourished. HEENT: Pupils are round and equally reacting to light. EOMI. No scleral icterus. No conjunctival pallor. Normocephalic, atraumatic. No pharyngeal erythema. No thyromegaly. CARDIOVASCULAR: S1 and S2 present. No murmurs, rubs, or gallops. PULMONARY: Bilateral crackles as well as expiratory wheezing ABDOMEN: Soft, nontender, nondistended, normoactive bowel sounds. No palpable organomegaly. MUSCULOSKELETAL: No joint swelling or deformity. EXTREMITIES: No cyanosis, clubbing, or pedal edema. NEUROLOGICAL: Gross neurological examination did not reveal any focal deficits. SKIN: No rashes. Note: Because of COVID 19 isolation, some of the history and physical exam findings are indirect and obtained from nursing staff, and other physician examinations to avoid unnecessary contact with the patient. Assessment and Plan Plan: -Acute hypoxic respiratory failure secondary to COPD exacerbation as well as COVID-19 -Hyperkalemia: Secondary to lisinopril plan as mentioned above -Chronic Hypoxic as well as hypercapnic respiratory failure secondary to COPD uses 3 L of oxygen at home -Type 2 diabetes mellitus -Hypertension -Hyperlipidemia -Obesity Health Concerns: Pt would like an influenza vaccine prior to discharge. Patient Condition at Discharge: Stable Plan - Discharge Summary Discharge Rx Participant: No New Discharge Prescriptions: New Famotidine [Pepcid] 20 mg PO BID #30 tablet predniSONE 10 mg PO DAILY #30 tab INSULIN LISPRO (humaLOG) [humaLOG] 1 injection SQ DIRECTED #10 ml Continue Triamcinolone 0.1% Ointment [Kenalog 0.1% Ointment] 1 applic TOPICAL BID Tiotropium 18 Mcg/Puff [Spiriva] 1 puff INHALATION RT-DAILY Albuterol Inhaler [Ventolin Hfa Inhaler] 2 puff INHALATION RT-Q4H PRN PRN Reason: Shortness Of Breath Or Wheezing Fluticasone/Salmeterol [Advair 500-50 Diskus] 1 puff INHALATION RT-BID Zinc 50 mg PO DAILY Ipratropium-Albuterol Nebulize [Duoneb 0.5 mg-3 mg/3 ml Soln] 3 ml INHALATION RT-QID PRN PRN Reason: Shortness Of Breath Insulin Detemir (Levemir) [Levemir] 45 unit SQ HS Ascorbic Acid [Vitamin C] 1,000 mg PO DAILY Changed lisinopriL [Zestril] 10 mg PO DAILY #30 No Action Atorvastatin Calcium [Lipitor] 20 mg PO HS amLODIPine [Norvasc] 10 mg PO DAILY #30 tab Montelukast [Singulair] 10 mg PO HS #30 tab diphenhydrAMINE & Zinc Cream [Benadryl Cream] 1 applic TOPICAL BID PRN applic PRN Reason: Itching metFORMIN HCL [Glucophage] 1,000 mg PO BID-W/MEALS #120 tab INSULIN ASPART (NovoLOG) [NovoLOG (formulary)] 15 unit SQ AC-TID #1 vial Discharge Medication List Atorvastatin Calcium [Lipitor] 20 mg PO HS 07/30/19 [History] Montelukast [Singulair] 10 mg PO HS #30 tab 08/01/19 [Rx] amLODIPine [Norvasc] 10 mg PO DAILY #30 tab 08/01/19 [Rx] INSULIN ASPART (NovoLOG) [NovoLOG (formulary)] 15 unit SQ AC-TID #1 vial 06/05/20 [Rx] diphenhydrAMINE & Zinc Cream [Benadryl Cream] 1 applic TOPICAL BID PRN applic 06/05/20 [Rx] metFORMIN HCL [Glucophage] 1,000 mg PO BID-W/MEALS #120 tab 06/05/20 [Rx] Albuterol Inhaler [Ventolin Hfa Inhaler] 2 puff INHALATION RT-Q4H PRN 11/25/20 [History] Ascorbic Acid [Vitamin C] 1,000 mg PO DAILY 11/25/20 [History] Fluticasone/Salmeterol [Advair 500-50 Diskus] 1 puff INHALATION RT-BID 11/25/20 [History] Insulin Detemir (Levemir) [Levemir] 45 unit SQ HS 11/25/20 [History] Ipratropium-Albuterol Nebulize [Duoneb 0.5 mg-3 mg/3 ml Soln] 3 ml INHALATION RT-QID PRN 11/25/20 [History] Tiotropium 18 Mcg/Puff [Spiriva] 1 puff INHALATION RT-DAILY 11/25/20 [History] Triamcinolone 0.1% Ointment [Kenalog 0.1% Ointment] 1 applic TOPICAL BID 11/25/20 [History] Zinc 50 mg PO DAILY 11/25/20 [History] Famotidine [Pepcid] 20 mg PO BID #30 tablet 11/29/20 [Rx] INSULIN LISPRO (humaLOG) [humaLOG] 1 injection SQ DIRECTED #10 ml 11/29/20 [Rx] lisinopriL [Zestril] 10 mg PO DAILY #30 11/29/20 [Rx] predniSONE 10 mg PO DAILY #30 tab 11/29/20 [Rx] Follow up Appointment(s)/Referral(s): Janie Wheatley MD [Primary Care Provider] - 1-2 days Mauricio Mcclure DO [Doctor of Osteopathic Medicine] - 2 Weeks Activity/Diet/Wound Care/Special Instructions: [facility] will deliver a wheelchair to patient's home after discharge. If patient is eligible for a nebulizer, they will deliver that to patient's home, too. Patient to call [facility] on or after 01/19/21 for new CPAP hose. [employer] [phone].
== END 2020-11-29 16:05 | disposition home or self-care (01) | DRG 177 ==
LOC: EC 15:00 → 6NMEDSUR 17:13 → 1SOBS 11-26 07:53 → OBSVTOIN 11-26 11:48 → 1SOBS 11-26 23:37
PROVIDERS: ADMIT Hospitalist; ATTEND Hospitalist
PROC: XW033E5 Introduction of Remdesivir Anti-infective into Peripheral Vein, Percutaneous Approach, New Technology Group 5 (ICD-10-PCS; principal; 2020-11-26)
DX: U07.1 COVID-19 (principal); J96.21 Acute and chronic respiratory failure with hypoxia; J12.82 Pneumonia due to coronavirus disease 2019; J96.22 Acute and chronic respiratory failure with hypercapnia; J44.0 Chronic obstructive pulmonary disease with (acute) lower respiratory infection; J44.1 Chronic obstructive pulmonary disease with (acute) exacerbation; D72.810 Lymphocytopenia; E66.9 Obesity, unspecified; E11.9 Type 2 diabetes mellitus without complications; L40.9 Psoriasis, unspecified; M19.90 Unspecified osteoarthritis, unspecified site; Z68.35 Body mass index [BMI] 35.0-35.9, adult; Z87.891 Personal history of nicotine dependence; Z79.899 Other long term (current) drug therapy; Z79.4 Long term (current) use of insulin; Z99.81 Dependence on supplemental oxygen; I10 Essential (primary) hypertension; E78.5 Hyperlipidemia, unspecified; R06.03 Acute respiratory distress; Z23 Encounter for immunization; E87.5 Hyperkalemia; T46.4X5A Adverse effect of angiotensin-converting-enzyme inhibitors, initial encounter; Z82.5 Family history of asthma and other chronic lower respiratory diseases
CPT/HCPCS: 36415; 71045; 71275; 80048; 80053; 81001; 82728; 83605; 83615; 83735; 84145; 85025; 85379; 85610; 85730; 86140; 87040; 87635; 93005; 93970; 94640; 94760; 96374; 99291

== ENCOUNTER 2022-05-02 15:54 | Inpatient (IN) | payer OTHER ==
[2022-05-02] MEDS ORDERED: IPRATROPIUM-ALBUTEROL 3 ML NEB INHALATION STA (16:38)
[2022-05-02] MEDS ORDERED: methylPREDNISolone SOD SUCCI 125 MG/2 ML VIAL IV STA (16:38)
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
[2022-05-02 17:04] LABS: Basophils % (A) 0 %; Eosinophils # (A) 0.1 k/uL (0-0.7); Eosinophils % (A) 1 %; HCT 53.6 % (39.0-53.0); HGB 17.4 gm/dL (13.0-17.5); Lymphocytes % (A) 6 %; MCH 28.2 pg (25.0-35.0); MCHC 32.5 g/dL (31.0-37.0); MCV 86.8 fL (80.0-100.0); Mean Platelet Volume 8.5; Monocytes # (A) 0.3 k/uL (0-1.0); Monocytes % (A) 2 %; Neutrophils # (A) 13.8 k/uL (1.3-7.7); Neutrophils % (A) 90 %; Platelet Count 302 k/uL (150-450); RBC 6.17 m/uL (4.30-5.90); RDW 13.8 % (11.5-15.5); WBC 15.3 k/uL (3.8-10.6)
[2022-05-02 17:18] LABS: Partial Thromboplastin Time 22.6 sec (22.0-30.0); Prothrombin Time 10.7 sec (9.0-12.0)
[2022-05-02 17:25] LABS: ALT 72 U/L (4-49); African American GFR (CKD) >90 (>60 ml/min/1.73 sqM); Albumin 4.5 g/dL (3.5-5.0); Anion Gap 15 mmol/L; Blood Urea Nitrogen 23 mg/dL (9-20); Calcium 9.4 mg/dL (8.4-10.2); Carbon Dioxide 23 mmol/L (22-30); Chloride 100 mmol/L (98-107); Glucose 250 mg/dL (74-99); Non-African American GFR(CKD) >90 (>60 ml/min/1.73 sqM); Sodium 138 mmol/L (137-145); Total Bilirubin 0.4 mg/dL (0.2-1.3); Total Protein 7.5 g/dL (6.3-8.2)
[2022-05-02 17:27] LABS: AST 54 U/L (17-59); Alkaline Phosphatase 89 U/L (38-126); Potassium 5.3 mmol/L (3.5-5.1)
[2022-05-02] MEDS ORDERED: NALOXONE 0.4 MG/ML 1 ML VIAL IVP PRN (18:18)
[2022-05-02] MEDS ORDERED: IPRATROPIUM-ALBUTEROL 3 ML NEB INHALATION PRN (18:18)
[2022-05-02] MEDS ORDERED: LEVOFLOXACIN 500MG-D5W PMX 500 MG in DEXTROSE/WATER 1 100ML.BAG IVPB STA (18:22)
--- NOTE | 2022-05-02 18:28 | XR ---
EXAMINATION TYPE: XR chest 2V DATE OF EXAM: 05/02/2022 COMPARISON: 07/01/2021 HISTORY: Short of breath TECHNIQUE: FINDINGS: There is no heart failure nor confluent pneumonic infiltrate. There are no hilar masses. Co stophrenic angles are fairly clear. Bony thorax is intact. IMPRESSION: No active cardiopulmonary disease. No change
[2022-05-02] MEDS: IPRATROPIUM-ALBUTEROL 3 ML NEB INHALATION SCH (19:23)
[2022-05-02 22:39] LABS: Glucose,Whole Blood 313 mg/dL (70-110)
[2022-05-02] MEDS: INSULIN DETEMIR (LEVEMIR) 100 UNIT/ML SYR SQ SCH (23:07)
[2022-05-02] MEDS: ATORVASTATIN 20 MG TAB PO SCH (23:07)
[2022-05-02] MEDS: MONTELUKAST 10 MG TAB PO SCH (23:07)
[2022-05-02] MEDS: methylPREDNISolone SOD SUCCI 125 MG/2 ML VIAL IV SCH (23:08)
[2022-05-03] MEDS: methylPREDNISolone SOD SUCCI 125 MG/2 ML VIAL IV SCH ×4 (05:43→23:52)
[2022-05-03 07:34] LABS: Glucose,Whole Blood 256 mg/dL (70-110)
[2022-05-03] MEDS: IPRATROPIUM-ALBUTEROL 3 ML NEB INHALATION SCH ×4 (08:58→20:54)
[2022-05-03] MEDS: amLODIPine 10 MG TAB PO SCH (10:12)
[2022-05-03] MEDS ORDERED: DEXTROSE 50% SYRINGE 50 ML IVP PRN ×4 (11:06→14:29)
[2022-05-03] MEDS: BENZOCAINE/MENTHOL LOZENG 1 EACH LOZENGE MUCOUS MEM PRN (11:17)
[2022-05-03 12:24] LABS: Glucose,Whole Blood 334 mg/dL (70-110)
[2022-05-03] MEDS ORDERED: INSULIN ASPART (NovoLOG) 100 UNIT/ML VIAL SQ SCH (12:30)
[2022-05-03] MEDS: INSULIN ASPART (NovoLOG) 100 UNIT/ML VIAL SQ SCH ×4 (13:26→21:55)
[2022-05-03 16:36] LABS: African American GFR (CKD) 87.1 (60.0-200.0); Anion Gap 13.8 mmol/L (10.00-18.00); Blood Urea Nitrogen 23.1 mg/dL (9.0-27.0); Calcium 9.5 mg/dL (8.7-10.3); Carbon Dioxide 27.1 mmol/L (20.0-27.5); Non-African American GFR(CKD) 75.2 (60.0-200.0); Potassium 5.4 mmol/L (3.5-5.5)
[2022-05-03 16:46] LABS: Basophils # (A) 0.02 X 10*3/uL (0.00-0.10); Basophils % (A) 0.2 %; Eosinophils # (A) 0 X 10*3/uL (0.04-0.35); Eosinophils % (A) 0 %; HGB 17.9 g/dL (13.0-17.0); Immature Grans, Automated 0.5 %; Lymphocytes # (A) 1.47 X 10*3/uL (0.90-5.00); Lymphocytes % (A) 11.1 %; MCH 27.6 pg (27.0-32.0); MCHC 32.5 g/dL (32.0-37.0); MCV 84.7 fL (80.0-97.0); Monocytes # (A) 0.41 X 10*3/uL (0.20-1.00); Monocytes % (A) 3.1 %; NRBC Per 100 WBC 0 /100 WBCS (0.0-0.0); Neutrophils # (A) 11.24 X 10*3/uL (1.80-7.70); Neutrophils % (A) 85.1 %; Platelet Count 369 X 10*3/uL (140-440); RBC 6.49 X 10*6/uL (4.40-5.60); RDW 14.5 % (11.5-14.5)
[2022-05-03 17:18] LABS: Glucose,Whole Blood 366 mg/dL (70-110)
[2022-05-03] MEDS: LEVOFLOXACIN 500MG-D5W PMX 500 MG in DEXTROSE/WATER 1 100ML.BAG IVPB SCH (17:36)
[2022-05-03] MEDS: ATORVASTATIN 20 MG TAB PO SCH (20:56)
[2022-05-03] MEDS: MONTELUKAST 10 MG TAB PO SCH (20:56)
[2022-05-03 21:50] LABS: Glucose,Whole Blood 269 mg/dL (70-110)
[2022-05-03] MEDS: INSULIN DETEMIR (LEVEMIR) 100 UNIT/ML SYR SQ SCH (21:56)
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
[2022-05-03] MEDS: HEPARIN SODIUM,PORCINE/PF 5,000 UNIT/0.5 ML SYRINGE SQ SCH (23:52)
[2022-05-04] MEDS: methylPREDNISolone SOD SUCCI 125 MG/2 ML VIAL IV SCH ×4 (05:37→23:42)
[2022-05-04] MEDS: IPRATROPIUM-ALBUTEROL 3 ML NEB INHALATION SCH ×4 (08:04→20:39)
[2022-05-04 08:09] LABS: Glucose,Whole Blood 351 mg/dL (70-110)
[2022-05-04] MEDS: INSULIN ASPART (NovoLOG) 100 UNIT/ML VIAL SQ SCH ×7 (08:44→22:18)
[2022-05-04] MEDS: amLODIPine 10 MG TAB PO SCH (08:45)
[2022-05-04] MEDS: HEPARIN SODIUM,PORCINE/PF 5,000 UNIT/0.5 ML SYRINGE SQ SCH ×3 (08:45→23:43)
[2022-05-04] MEDS ORDERED: guaiFENesin SYRUP 100MG/5ML 200 MG/10 ML CUP PO PRN (08:59)
[2022-05-04] MEDS: BENZOCAINE/MENTHOL LOZENG 1 EACH LOZENGE MUCOUS MEM PRN ×2 (09:07→22:23)
[2022-05-04 12:17] LABS: Glucose,Whole Blood 279 mg/dL (70-110)
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
[2022-05-04 17:11] LABS: Glucose,Whole Blood 292 mg/dL (70-110)
[2022-05-04] MEDS: LEVOFLOXACIN 500MG-D5W PMX 500 MG in DEXTROSE/WATER 1 100ML.BAG IVPB SCH (17:25)
[2022-05-04] MEDS: PANTOPRAZOLE 40 MG TABLET PO SCH (17:26)
[2022-05-04] MEDS ORDERED: BUDESONIDE 1 MG/2 ML NEBU INHALATION SCH (20:00)
[2022-05-04] MEDS: SYMBICORT 160-4.5 MCG INHALER INHALATION SCH (20:39)
[2022-05-04 20:42] LABS: Glucose,Whole Blood 288 mg/dL (70-110)
[2022-05-04] MEDS: ATORVASTATIN 20 MG TAB PO SCH (22:18)
[2022-05-04] MEDS: MONTELUKAST 10 MG TAB PO SCH (22:18)
[2022-05-04] MEDS: INSULIN DETEMIR (LEVEMIR) 100 UNIT/ML SYR SQ SCH (22:19)
[2022-05-05] MEDS: methylPREDNISolone SOD SUCCI 125 MG/2 ML VIAL IV SCH ×4 (08:12→23:28)
[2022-05-05] MEDS: SYMBICORT 160-4.5 MCG INHALER INHALATION SCH (08:31)
[2022-05-05] MEDS: IPRATROPIUM-ALBUTEROL 3 ML NEB INHALATION SCH ×4 (08:31→19:12)
[2022-05-05 08:35] LABS: Glucose,Whole Blood 358 mg/dL (70-110)
[2022-05-05] MEDS: INSULIN ASPART (NovoLOG) 100 UNIT/ML VIAL SQ SCH ×7 (08:49→21:23)
--- NOTE | 2022-05-05 09:19 | P.PN ---
Subjective Progress Note Date: 05/04/22 Patient is a 61-year-old male with a known history of COPD on oxygen at 4 L via nasal cannula presents to ER with complaints of worsening shortness of breath for the past 3 days. Patient also was complaining of cough with nonproductive sputum. Feels very congested in the chest. Denies any fever or chills. No nausea vomiting abdominal diarrhea. No chest pain.Patient states that he was very hypoxic and pulse ox went down to 80s at home. Denies any recent illnesses. Chest x-ray showed no acute cardiopulmonary disease. No change. EKG showed sinus tachycardia. Laboratory showed WBC 15.3 hemoglobin 17.4 and platelets 302 Sodium 138 potassium 5.3 chloride 100 bicarb is 23 BUN 23 and creatinine 0.88 and blood sugar is 250 Liver enzymes are not elevated Coronavirus PCR not detected. 05/04/2022 Patient is currently sitting on a regular rate. Still having shortness of breath and exertional dyspnea. Bilateral diminished sounds and wheezing on exam. No complaint of chest pain. No nausea vomiting or abdominal diarrhea. Blood sugar is elevated. Patient did complain of cough this morning without any sputum production. No headache or dizziness or lightheadedness. Patient is being controlled on IV steroids, DuoNeb's and oxygen supplementation. Current medications reviewed. Objective - Vital Signs Vital signs: Vital Signs Temp 97.6 F 05/04/22 15:00 Pulse 96 05/04/22 20:54 Resp 16 05/04/22 15:00 BP 133/70 05/04/22 15:00 Pulse Ox 95 05/04/22 20:40 FiO2 Intake & Output 05/04/22 05/04/22 05/05/22 06:59 18:59 06:59 Intake Total 900 Balance 900 Intake: Oral 900 Other: Voiding Method Toilet Toilet # Voids 1 3 - Exam PHYSICAL EXAMINATION: Patient is lying in the bed comfortably, no acute distress, awake alert and oriented.. HEENT: Normocephalic. Neck is supple. Pupils reactive. Nostrils clear. Oral cavity is moist. Neck reveals no JVD, carotid bruits, or thyromegaly. CHEST EXAMINATION: Trachea is central. Symmetrical expansion. Patient does have bilateral diminished sounds and right-sided expiratory wheezing.. CARDIAC: Normal S1, S2 with no gallops. No murmurs ABDOMEN: Soft. Bowel sounds normal. No organomegaly. No abdominal bruits. Extremities: reveal no edema. No clubbing or cyanosis Neurologically awake, alert, oriented x3 with well-coordinated movements. No focal deficits noted Skin: No rash or skin lesions. Psychiatric: Coperative. Nonsuicidal Musculoskeletal: No joint swelling or deformity. Normal range of motion. - Labs CBC & Chem 7: 05/03/22 10:37 05/03/22 10:37 Labs: Abnormal Lab Results - Last 24 Hours (Table) 05/03/22 05/04/22 05/04/22 Range/Units 21:49 08:08 12:16 POC Glucose (mg/dL) 269 H 351 H 279 H (70-110) mg/dL 05/04/22 05/04/22 Range/Units 17:10 20:41 POC Glucose (mg/dL) 292 H 288 H (70-110) mg/dL Microbiology - Last 24 Hours (Table) 05/02/22 18:35 Blood Culture - Preliminary Blood No Growth after 48 hours 05/02/22 18:20 Blood Culture - Preliminary Blood No Growth after 48 hours Assessment and Plan Assessment: Acute COPD exacerbation Acute tracheobronchitis Acute on chronic hypoxic respiratory failure requiring oxygen 4 L via nasal cannula at home Mild hyperkalemia on admission Hyperglycemia with uncontrolled diabetes type 2 with steroids contributing Hypertension Hyperlipidemia Diabetes type 2 insulin-dependent Obstructive sleep apnea not on CPAP at home Bilateral peripheral neuropathy Previous history of smoking DVT prophylaxis with heparin subcu Plan: Patient will be continued on IV steroids with methylprednisolone 60 mg every 6 hourly, DuoNebs and oxygen supplementation as needed. Patient will be continued on insulin regimen and titrate dose as needed for better blood sugar control. Continue with antibiotics in the form of Levaquin follow-up sputum cultures. Follow-up blood cultures. Time with Patient: Greater than 30
[2022-05-05] MEDS: PANTOPRAZOLE 40 MG TABLET PO SCH (09:21)
[2022-05-05] MEDS: amLODIPine 10 MG TAB PO SCH (09:21)
[2022-05-05 09:27] LABS: Basophils # (A) 0.02 X 10*3/uL (0.00-0.10); Basophils % (A) 0.1 %; Eosinophils # (A) 0 X 10*3/uL (0.04-0.35); Eosinophils % (A) 0 %; HCT 53.2 % (39.6-50.0); HGB 17.7 g/dL (13.0-17.0); Immature Grans, Automated 0.4 %; Lymphocytes # (A) 1.08 X 10*3/uL (0.90-5.00); Lymphocytes % (A) 5.9 %; MCH 28.1 pg (27.0-32.0); MCHC 33.3 g/dL (32.0-37.0); MCV 84.3 fL (80.0-97.0); Mean Platelet Volume 10.7 fL (9.5-12.2); Monocytes # (A) 0.24 X 10*3/uL (0.20-1.00); Monocytes % (A) 1.3 %; NRBC Per 100 WBC 0 /100 WBCS (0.0-0.0); Neutrophils # (A) 16.78 X 10*3/uL (1.80-7.70); Neutrophils % (A) 92.3 %; Platelet Count 357 X 10*3/uL (140-440); RBC 6.31 X 10*6/uL (4.40-5.60); RDW 14.2 % (11.5-14.5)
[2022-05-05] MEDS: HEPARIN SODIUM,PORCINE/PF 5,000 UNIT/0.5 ML SYRINGE SQ SCH ×3 (09:27→23:28)
[2022-05-05 09:32] LABS: African American GFR (CKD) 74.1 (60.0-200.0); Anion Gap 9.5 mmol/L (10.00-18.00); BUN/Creat Ratio 25.58 Ratio (12.00-20.00); Blood Urea Nitrogen 30.7 mg/dL (9.0-27.0); Calcium 9.4 mg/dL (8.7-10.3); Carbon Dioxide 29.5 mmol/L (20.0-27.5); Potassium 5.5 mmol/L (3.5-5.5)
--- NOTE | 2022-05-05 13:04 | P.PN ---
Subjective Progress Note Date: 05/05/22 This is a 61-year-old white male with known history of severe COPD, gold stage IV, FEV1 of 28%, FEV1/FVC is 46%. patient used to be a heavy smoker in the past, presently he has very minimal smoking history. Patient is also known to have history of obstructive sleep apnea, maintained on CPAP Last time I saw this patient in the office was back in November of 2021, and he was advised to remain on prednisone at 5 mg daily along with other many bronchodilators including DuoNeb updrafts 4 times a day and when necessary he is also maintained on Trelegy Ellipta 1 puff daily. Patient has done fairly well considering his severe COPD and again his last office visit was in November of 2021. Patient presented to the ER yesterday with mostly few days history of increased shortness of breath, cough wheezing. Cough is dry cough, nonproductive. Patient felt very congested, he denies any recent exposure to any patient with COVID-19 infection, patient tested himself at home and he tested negative he was also tested again during this ER visit and he tested negative again. Chest x-ray on this admission showed no evidence of infiltrates. Patient was noted to be quite dyspneic, he was placed on 3 L nasal cannula admitted and this consult was initiated. CBC showed a bit of leukocytosis with WBC count of 15.4 his electrolytes were normal renal profile was normal blood sugar was 28 and 50. Again sow virus PCR was not detected. The patient is seen today 05/05/2022 in follow-up on the regular medical floor. He is currently sitting up at the bedside. Awake and alert in no acute distress. Breathing a bit easier today compared to yesterday. He still has a dry nonproductive cough. Still dyspneic with conversation. Dyspneic with exertion. He is maintaining O2 saturation in the 90s on 3 L/m per nasal cannula. He's been afebrile. Hemodynamically stable. He's been maintained on Symbicort, DuoNeb inhalations, IV Solu-Medrol. Antibiotics in the form of Levaquin. Heparin for DVT prophylaxis. White count 18.2. Hemoglobin 17.7. Sodium 132. Potassium 5.5. BUN 30. Creatinine 1.2. Glucose 480. ProBNP 30. Objective - Vital Signs Vital signs: Vital Signs Temp 98.2 F 10/03/22 07:00 Pulse 87 05/05/22 12:18 Resp 18 05/05/22 07:00 BP 158/81 05/05/22 07:00 Pulse Ox 95 05/05/22 08:33 FiO2 Intake & Output 05/04/22 05/05/22 05/05/22 18:59 06:59 18:59 Intake Total 900 Balance 900 Intake: Oral 900 Other: Voiding Method Toilet Toilet # Voids 3 2 - Exam GENERAL EXAM: Alert, pleasant 61-year-old male, on 3 L nasal cannula, fairly comfortable in no apparent distress. HEAD: Normocephalic. EYES: Normal reaction of pupils, equal size. NOSE: Clear with pink turbinates. THROAT: No erythema or exudates. NECK: No masses, no JVD. CHEST: No chest wall deformity. LUNGS: Equal air entry with bilateral end expiratory wheeze. Diminished. CVS: S1 and S2 normal with no audible murmur, regular rhythm. ABDOMEN: No hepatosplenomegaly, normal bowel sounds, no guarding or rigidity. SPINE: No scoliosis or deformity SKIN: No rashes CENTRAL NERVOUS SYSTEM: No focal deficits, tone is normal in all 4 extremities. EXTREMITIES: There is no peripheral edema. No clubbing, no cyanosis. Peripheral pulses are intact. - Labs CBC & Chem 7: 05/05/22 04:59 05/05/22 04:59 Labs: Abnormal Lab Results - Last 24 Hours (Table) 05/04/22 05/04/22 05/05/22 Range/Units 17:10 20:41 04:59 WBC 18.20 H (4.50-10.00) X 10*3/uL RBC 6.31 H (4.40-5.60) X 10*6/uL Hgb 17.7 H (13.0-17.0) g/dL Hct 53.2 H (39.6-50.0) % Immature Gran # 0.08 H (0.00-0.04) X 10*3/uL Neutrophils # 16.78 H (1.80-7.70) X 10*3/uL Eosinophils # 0 L (0.04-0.35) X 10*3/uL Sodium (135-145) mmol/L Chloride (96-109) mmol/L Carbon Dioxide (20.0-27.5) mmol/L Anion Gap (10.00-18.00) mmol/L BUN (9.0-27.0) mg/dL BUN/Creatinine Ratio (12.00-20.00) Ratio Glucose (70-110) mg/dL POC Glucose (mg/dL) 292 H 288 H (70-110) mg/dL 05/05/22 05/05/22 Range/Units 04:59 08:33 WBC (4.50-10.00) X 10*3/uL RBC (4.40-5.60) X 10*6/uL Hgb (13.0-17.0) g/dL Hct (39.6-50.0) % Immature Gran # (0.00-0.04) X 10*3/uL Neutrophils # (1.80-7.70) X 10*3/uL Eosinophils # (0.04-0.35) X 10*3/uL Sodium 132 L (135-145) mmol/L Chloride 93 L (96-109) mmol/L Carbon Dioxide 29.5 H (20.0-27.5) mmol/L Anion Gap 9.50 L (10.00-18.00) mmol/L BUN 30.7 H (9.0-27.0) mg/dL BUN/Creatinine Ratio 25.58 H (12.00-20.00) Ratio Glucose 480 H (70-110) mg/dL POC Glucose (mg/dL) 358 H (70-110) mg/dL Microbiology - Last 24 Hours (Table) 05/02/22 18:35 Blood Culture - Preliminary Blood No Growth after 48 hours 05/02/22 18:20 Blood Culture - Preliminary Blood No Growth after 48 hours Assessment and Plan Assessment: Acute exacerbation of COPD, associate with acute tracheobronchitis, but no clear-cut evidence of pneumonia Acute on chronic hypoxic respiratory failure, patient is on home O2. Benign essential hypertension Obstructive sleep apnea syndrome, on CPAP at home Bilateral peripheral neuropathy Ex-smoker Dyslipidemia Type 2 diabetes History of COVID-19 pneumonia back in November of 2021. History of psoriasis. Plan: The patient was seen and evaluated Labs and medications reviewed Check a pro-calcitonin Continue Levaquin for now Discontinue Symbicort Add Pulmicort and Perforomist inhalations Continue DuoNeb inhalations, IV Solu-Medrol, Singulair We will continue to follow I have personally seen and examined the patient, performed the documentation and the assessment and plan as written. Number of minutes spent on the visit: 10.
[2022-05-05 13:20] LABS: Glucose,Whole Blood 354 mg/dL (70-110)
[2022-05-05 16:54] LABS: Glucose,Whole Blood 375 mg/dL (70-110)
[2022-05-05] MEDS ORDERED: LEVOFLOXACIN 500 MG TAB PO SCH (18:00)
[2022-05-05] MEDS: BUDESONIDE 1 MG/2 ML NEBU INHALATION SCH (19:11)
[2022-05-05] MEDS: FORMOTEROL FUMARATE 20 MCG/2 ML NEBU INHALATION SCH (19:12)
[2022-05-05 19:45] LABS: Glucose,Whole Blood 371 mg/dL (70-110)
[2022-05-05] MEDS: MONTELUKAST 10 MG TAB PO SCH (20:28)
[2022-05-05] MEDS: ATORVASTATIN 20 MG TAB PO SCH (20:28)
[2022-05-05 20:59] LABS: Glucose,Whole Blood 337 mg/dL (70-110)
[2022-05-05] MEDS: INSULIN DETEMIR (LEVEMIR) 100 UNIT/ML SYR SQ SCH (21:23)
--- NOTE | 2022-05-06 02:43 | P.PN ---
Subjective Progress Note Date: 05/05/22 Patient is a 61-year-old male with a known history of COPD on oxygen at 4 L via nasal cannula presents to ER with complaints of worsening shortness of breath for the past 3 days. Patient also was complaining of cough with nonproductive sputum. Feels very congested in the chest. Denies any fever or chills. No nausea vomiting abdominal diarrhea. No chest pain.Patient states that he was very hypoxic and pulse ox went down to 80s at home. Denies any recent illnesses. Chest x-ray showed no acute cardiopulmonary disease. No change. EKG showed sinus tachycardia. Laboratory showed WBC 15.3 hemoglobin 17.4 and platelets 302 Sodium 138 potassium 5.3 chloride 100 bicarb is 23 BUN 23 and creatinine 0.88 and blood sugar is 250 Liver enzymes are not elevated Coronavirus PCR not detected. 05/04/2022 Patient is currently sitting on a regular rate. Still having shortness of breath and exertional dyspnea. Bilateral diminished sounds and wheezing on exam. No complaint of chest pain. No nausea vomiting or abdominal diarrhea. Blood sugar is elevated. Patient did complain of cough this morning without any sputum production. No headache or dizziness or lightheadedness. Patient is being controlled on IV steroids, DuoNeb's and oxygen supplementation. 05/05/2022 Patient is currently sitting in the chair. Still having exertional dyspnea. Bilateral diminished air entry on exam. Breathing status is better compared yesterday. Cough without any sputum production. No nausea vomiting abdominal diarrhea. Afebrile. Currently requiring 3 L oxygen via nasal cannula. Patient is being current on IV Solu-Medrol, Symbicort and Pulmicort/performers was added. Pulmonary is on board. Laboratories reviewed. Patient is hyperglycemic and is being placed on insulin regimen. Levemir dose increased to 27 units at bedtime. Continue to titrate insulin dose. Patient is also on NovoLog 15 units 3 times daily AC. Current medications reviewed. Objective - Vital Signs Vital signs: Vital Signs Temp 98.1 F 05/05/22 15:00 Pulse 98 05/05/22 19:32 Resp 18 05/05/22 15:00 BP 158/66 05/05/22 15:00 Pulse Ox 97 05/05/22 15:23 FiO2 Intake & Output 10/03/22 10/03/22 10/04/22 06:59 18:59 06:59 Intake Total 1305 Balance 1305 Intake: Oral 1305 Other: Voiding Method Toilet # Voids 2 2 - Exam PHYSICAL EXAMINATION: Patient is lying in the bed comfortably, no acute distress, awake alert and oriented.. HEENT: Normocephalic. Neck is supple. Pupils reactive. Nostrils clear. Oral cavity is moist. Neck reveals no JVD, carotid bruits, or thyromegaly. CHEST EXAMINATION: Trachea is central. Symmetrical expansion. Patient does have bilateral diminished sounds and right-sided expiratory wheezing.. CARDIAC: Normal S1, S2 with no gallops. No murmurs ABDOMEN: Soft. Bowel sounds normal. No organomegaly. No abdominal bruits. Extremities: reveal no edema. No clubbing or cyanosis Neurologically awake, alert, oriented x3 with well-coordinated movements. No focal deficits noted Skin: No rash or skin lesions. Psychiatric: Coperative. Nonsuicidal Musculoskeletal: No joint swelling or deformity. Normal range of motion. - Labs CBC & Chem 7: 05/05/22 04:59 05/05/22 04:59 Labs: Abnormal Lab Results - Last 24 Hours (Table) 05/05/22 05/05/22 05/05/22 Range/Units 04:59 04:59 08:33 WBC 18.20 H (4.50-10.00) X 10*3/uL RBC 6.31 H (4.40-5.60) X 10*6/uL Hgb 17.7 H (13.0-17.0) g/dL Hct 53.2 H (39.6-50.0) % Immature Gran # 0.08 H (0.00-0.04) X 10*3/uL Neutrophils # 16.78 H (1.80-7.70) X 10*3/uL Eosinophils # 0 L (0.04-0.35) X 10*3/uL Sodium 132 L (135-145) mmol/L Chloride 93 L (96-109) mmol/L Carbon Dioxide 29.5 H (20.0-27.5) mmol/L Anion Gap 9.50 L (10.00-18.00) mmol/L BUN 30.7 H (9.0-27.0) mg/dL BUN/Creatinine Ratio 25.58 H (12.00-20.00) Ratio Glucose 480 H (70-110) mg/dL POC Glucose (mg/dL) 358 H (70-110) mg/dL 05/05/22 05/05/22 05/05/22 Range/Units 13:19 16:53 19:44 WBC (4.50-10.00) X 10*3/uL RBC (4.40-5.60) X 10*6/uL Hgb (13.0-17.0) g/dL Hct (39.6-50.0) % Immature Gran # (0.00-0.04) X 10*3/uL Neutrophils # (1.80-7.70) X 10*3/uL Eosinophils # (0.04-0.35) X 10*3/uL Sodium (135-145) mmol/L Chloride (96-109) mmol/L Carbon Dioxide (20.0-27.5) mmol/L Anion Gap (10.00-18.00) mmol/L BUN (9.0-27.0) mg/dL BUN/Creatinine Ratio (12.00-20.00) Ratio Glucose (70-110) mg/dL POC Glucose (mg/dL) 354 H 375 H 371 H (70-110) mg/dL 05/05/22 Range/Units 20:58 WBC (4.50-10.00) X 10*3/uL RBC (4.40-5.60) X 10*6/uL Hgb (13.0-17.0) g/dL Hct (39.6-50.0) % Immature Gran # (0.00-0.04) X 10*3/uL Neutrophils # (1.80-7.70) X 10*3/uL Eosinophils # (0.04-0.35) X 10*3/uL Sodium (135-145) mmol/L Chloride (96-109) mmol/L Carbon Dioxide (20.0-27.5) mmol/L Anion Gap (10.00-18.00) mmol/L BUN (9.0-27.0) mg/dL BUN/Creatinine Ratio (12.00-20.00) Ratio Glucose (70-110) mg/dL POC Glucose (mg/dL) 337 H (70-110) mg/dL Microbiology - Last 24 Hours (Table) 05/02/22 18:35 Blood Culture - Preliminary Blood No Growth after 72 hours 05/02/22 18:20 Blood Culture - Preliminary Blood No Growth after 72 hours Assessment and Plan Assessment: Acute COPD exacerbation Acute tracheobronchitis Acute on chronic hypoxic respiratory failure requiring oxygen 4 L via nasal cannula at home Mild hyperkalemia on admission Hyperglycemia with uncontrolled diabetes type 2 with steroids contributing Hypertension Hyperlipidemia Diabetes type 2 insulin-dependent Obstructive sleep apnea not on CPAP at home Bilateral peripheral neuropathy Previous history of smoking DVT prophylaxis with heparin subcu Plan: Patient will be continued on IV steroids with methylprednisolone 60 mg every 6 hourly, DuoNebs and oxygen supplementation as needed. Patient will be continued on insulin regimen and titrate dose as needed for better blood sugar control. Continue with antibiotics in the form of Levaquin follow-up sputum cultures. Follow-up blood cultures. Time with Patient: Greater than 30
[2022-05-06] MEDS: methylPREDNISolone SOD SUCCI 125 MG/2 ML VIAL IV SCH ×4 (05:27→23:29)
[2022-05-06 07:28] LABS: Glucose,Whole Blood 333 mg/dL (70-110)
[2022-05-06] MEDS: BUDESONIDE 1 MG/2 ML NEBU INHALATION SCH ×2 (08:02→20:25)
[2022-05-06] MEDS: FORMOTEROL FUMARATE 20 MCG/2 ML NEBU INHALATION SCH ×2 (08:02→20:25)
[2022-05-06] MEDS: IPRATROPIUM-ALBUTEROL 3 ML NEB INHALATION SCH ×4 (08:02→20:25)
[2022-05-06] MEDS: INSULIN ASPART (NovoLOG) 100 UNIT/ML VIAL SQ SCH ×7 (08:41→20:56)
[2022-05-06 09:19] LABS: Basophils # (A) 0.03 X 10*3/uL (0.00-0.10); Basophils % (A) 0.2 %; Eosinophils # (A) 0 X 10*3/uL (0.04-0.35); Eosinophils % (A) 0 %; HCT 52.7 % (39.6-50.0); HGB 17.3 g/dL (13.0-17.0); Immature Grans, Automated 0.9 %; Lymphocytes # (A) 1.06 X 10*3/uL (0.90-5.00); Lymphocytes % (A) 6.3 %; MCH 28.1 pg (27.0-32.0); MCHC 32.8 g/dL (32.0-37.0); MCV 85.6 fL (80.0-97.0); Monocytes % (A) 3.5 %; NRBC Per 100 WBC 0 /100 WBCS (0.0-0.0); Neutrophils % (A) 89.1 %; Platelet Count 343 X 10*3/uL (140-440); RBC 6.16 X 10*6/uL (4.40-5.60); RDW 13.9 % (11.5-14.5); WBC 16.94 X 10*3/uL (4.50-10.00)
[2022-05-06 09:27] LABS: African American GFR (CKD) 92.4 (60.0-200.0); BUN/Creat Ratio 28.8 Ratio (12.00-20.00); Blood Urea Nitrogen 28.8 mg/dL (9.0-27.0); Non-African American GFR(CKD) 79.7 (60.0-200.0); Potassium 5.5 mmol/L (3.5-5.5)
[2022-05-06] MEDS: HEPARIN SODIUM,PORCINE/PF 5,000 UNIT/0.5 ML SYRINGE SQ SCH ×3 (09:28→22:46)
[2022-05-06] MEDS: PANTOPRAZOLE 40 MG TABLET PO SCH (09:28)
[2022-05-06] MEDS: amLODIPine 10 MG TAB PO SCH (09:28)
[2022-05-06] MEDS ORDERED: SODIUM CHLORIDE 0.65% NASAL SPRAY 44 ML BTL NASAL PRN (10:26)
--- NOTE | 2022-05-06 11:57 | P.PN ---
Subjective Progress Note Date: 05/06/22 This is a 61-year-old white male with known history of severe COPD, gold stage IV, FEV1 of 28%, FEV1/FVC is 46%. patient used to be a heavy smoker in the past, presently he has very minimal smoking history. Patient is also known to have history of obstructive sleep apnea, maintained on CPAP Last time I saw this patient in the office was back in November of 2021, and he was advised to remain on prednisone at 5 mg daily along with other many bronchodilators including DuoNeb updrafts 4 times a day and when necessary he is also maintained on Trelegy Ellipta 1 puff daily. Patient has done fairly well considering his severe COPD and again his last office visit was in November of 2021. Patient presented to the ER yesterday with mostly few days history of increased shortness of breath, cough wheezing. Cough is dry cough, nonproductive. Patient felt very congested, he denies any recent exposure to any patient with COVID-19 infection, patient tested himself at home and he tested negative he was also tested again during this ER visit and he tested negative again. Chest x-ray on this admission showed no evidence of infiltrates. Patient was noted to be quite dyspneic, he was placed on 3 L nasal cannula admitted and this consult was initiated. CBC showed a bit of leukocytosis with WBC count of 15.4 his electrolytes were normal renal profile was normal blood sugar was 28 and 50. Again sow virus PCR was not detected. The patient is seen today 05/05/2022 in follow-up on the regular medical floor. He is currently sitting up at the bedside. Awake and alert in no acute distress. Breathing a bit easier today compared to yesterday. He still has a dry nonproductive cough. Still dyspneic with conversation. Dyspneic with exertion. He is maintaining O2 saturation in the 90s on 3 L/m per nasal cannula. He's been afebrile. Hemodynamically stable. He's been maintained on Symbicort, DuoNeb inhalations, IV Solu-Medrol. Antibiotics in the form of Levaquin. Heparin for DVT prophylaxis. White count 18.2. Hemoglobin 17.7. Sodium 132. Potassium 5.5. BUN 30. Creatinine 1.2. Glucose 480. ProBNP 30. The patient is seen today 05/06/2022 in follow-up on the regular medical floor. He is awake and alert in no acute distress. Sitting up in a chair at the bedside. Doing a bit better today compared to yesterday. Still not quite back to his baseline. Still quite diminished and moving little air. He is maintaining O2 saturations in the 90s on 3 L/m per nasal cannula. No IV fluids. He does utilize CPAP at home and is encouraged to bring his device in. Blood cultures reveal no growth. White count 16.9. Hemoglobin 17.3. Sodium 135. Potassium 5.5. BUN 28. Creatinine 1.0. Glucose 389. Pro-calcitonin 0.04. He is continued on Levaquin, DuoNeb inhalations, Pulmicort and Perforomist inhalations, IV Solu-Medrol, Singulair. Heparin for DVT prophylaxis. Objective - Vital Signs Vital signs: Vital Signs Temp 97.7 F 05/06/22 07:00 Pulse 94 05/06/22 11:49 Resp 16 05/06/22 07:00 BP 151/80 05/06/22 07:00 Pulse Ox 97 05/06/22 08:05 FiO2 Intake & Output 05/05/22 05/06/22 05/06/22 18:59 06:59 18:59 Intake Total 1305 180 Balance 1305 180 Intake: Oral 1305 180 Other: Voiding Method Toilet # Voids 2 2 - Exam GENERAL EXAM: Alert, obese 61-year-old male, on 3 L nasal cannula, fairly comfortable in no apparent distress. HEAD: Normocephalic. EYES: Normal reaction of pupils, equal size. NOSE: Clear with pink turbinates. THROAT: No erythema or exudates. NECK: No masses, no JVD. CHEST: No chest wall deformity. LUNGS: Equal air entry with bilateral end expiratory wheeze. Diminished. CVS: S1 and S2 normal with no audible murmur, regular rhythm. ABDOMEN: No hepatosplenomegaly, normal bowel sounds, no guarding or rigidity. SPINE: No scoliosis or deformity SKIN: No rashes CENTRAL NERVOUS SYSTEM: No focal deficits, tone is normal in all 4 extremities. EXTREMITIES: There is no peripheral edema. No clubbing, no cyanosis. Peripheral pulses are intact. - Labs CBC & Chem 7: 05/06/22 05:16 05/06/22 05:16 Labs: Abnormal Lab Results - Last 24 Hours (Table) 05/05/22 05/05/22 05/05/22 Range/Units 13:19 16:53 19:44 WBC (4.50-10.00) X 10*3/uL RBC (4.40-5.60) X 10*6/uL Hgb (13.0-17.0) g/dL Hct (39.6-50.0) % Immature Gran # (0.00-0.04) X 10*3/uL Neutrophils # (1.80-7.70) X 10*3/uL Eosinophils # (0.04-0.35) X 10*3/uL Carbon Dioxide (20.0-27.5) mmol/L Anion Gap (10.00-18.00) mmol/L BUN (9.0-27.0) mg/dL BUN/Creatinine Ratio (12.00-20.00) Ratio Glucose (70-110) mg/dL POC Glucose (mg/dL) 354 H 375 H 371 H (70-110) mg/dL 05/05/22 05/06/22 05/06/22 Range/Units 20:58 05:16 05:16 WBC 16.94 H (4.50-10.00) X 10*3/uL RBC 6.16 H (4.40-5.60) X 10*6/uL Hgb 17.3 H (13.0-17.0) g/dL Hct 52.7 H (39.6-50.0) % Immature Gran # 0.15 H (0.00-0.04) X 10*3/uL Neutrophils # 15.10 H (1.80-7.70) X 10*3/uL Eosinophils # 0 L (0.04-0.35) X 10*3/uL Carbon Dioxide 30.0 H (20.0-27.5) mmol/L Anion Gap 9.00 L (10.00-18.00) mmol/L BUN 28.8 H (9.0-27.0) mg/dL BUN/Creatinine Ratio 28.80 H (12.00-20.00) Ratio Glucose 389 H (70-110) mg/dL POC Glucose (mg/dL) 337 H (70-110) mg/dL 05/06/22 Range/Units 07:27 WBC (4.50-10.00) X 10*3/uL RBC (4.40-5.60) X 10*6/uL Hgb (13.0-17.0) g/dL Hct (39.6-50.0) % Immature Gran # (0.00-0.04) X 10*3/uL Neutrophils # (1.80-7.70) X 10*3/uL Eosinophils # (0.04-0.35) X 10*3/uL Carbon Dioxide (20.0-27.5) mmol/L Anion Gap (10.00-18.00) mmol/L BUN (9.0-27.0) mg/dL BUN/Creatinine Ratio (12.00-20.00) Ratio Glucose (70-110) mg/dL POC Glucose (mg/dL) 333 H (70-110) mg/dL Microbiology - Last 24 Hours (Table) 05/02/22 18:35 Blood Culture - Preliminary Blood No Growth after 72 hours 05/02/22 18:20 Blood Culture - Preliminary Blood No Growth after 72 hours Assessment and Plan Assessment: Acute exacerbation of COPD, associate with acute tracheobronchitis, but no clear-cut evidence of pneumonia. Pro calcitonin 0.04 Acute on chronic hypoxic respiratory failure, patient is on home O2. Benign essential hypertension Obstructive sleep apnea syndrome, on CPAP at home Bilateral peripheral neuropathy Ex-smoker Dyslipidemia Type 2 diabetes History of COVID-19 pneumonia back in November of 2021. History of psoriasis. Plan: The patient was seen and evaluated Labs and medications reviewed Pro calcitonin 0.04 Discontinue Levaquin Continue Pulmicort and Perforomist inhalations Continue DuoNeb inhalations, IV Solu-Medrol, Singulair We will continue to follow I have personally seen and examined the patient, performed the documentation and the assessment and plan as written. Number of minutes spent on the visit: 10.
[2022-05-06 12:14] LABS: Glucose,Whole Blood 290 mg/dL (70-110)
--- NOTE | 2022-05-06 12:54 | P.PN ---
Subjective Progress Note Date: 05/06/22 Patient is a 61-year-old male with a known history of COPD on oxygen at 4 L via nasal cannula presents to ER with complaints of worsening shortness of breath for the past 3 days. Patient also was complaining of cough with nonproductive sputum. Feels very congested in the chest. Denies any fever or chills. No nausea vomiting abdominal diarrhea. No chest pain.Patient states that he was very hypoxic and pulse ox went down to 80s at home. Denies any recent illnesses. Chest x-ray showed no acute cardiopulmonary disease. No change. EKG showed sinus tachycardia. Laboratory showed WBC 15.3 hemoglobin 17.4 and platelets 302 Sodium 138 potassium 5.3 chloride 100 bicarb is 23 BUN 23 and creatinine 0.88 and blood sugar is 250 Liver enzymes are not elevated Coronavirus PCR not detected. 05/04/2022 Patient is currently sitting on a regular rate. Still having shortness of breath and exertional dyspnea. Bilateral diminished sounds and wheezing on exam. No complaint of chest pain. No nausea vomiting or abdominal diarrhea. Blood sugar is elevated. Patient did complain of cough this morning without any sputum production. No headache or dizziness or lightheadedness. Patient is being controlled on IV steroids, DuoNeb's and oxygen supplementation. 05/05/2022 Patient is currently sitting in the chair. Still having exertional dyspnea. Bilateral diminished air entry on exam. Breathing status is better compared yesterday. Cough without any sputum production. No nausea vomiting abdominal diarrhea. Afebrile. Currently requiring 3 L oxygen via nasal cannula. Patient is being current on IV Solu-Medrol, Symbicort and Pulmicort/performers was added. Pulmonary is on board. Laboratories reviewed. Patient is hyperglycemic and is being placed on insulin regimen. Levemir dose increased to 27 units at bedtime. Continue to titrate insulin dose. Patient is also on NovoLog 15 units 3 times daily AC. 05/06/22. Patient seen and examined. Labs reviewed. Vital signs stable. Continues to be on 3 oxygen. states he gets short of breath on exertion. Complaining of cough. REVIEW OF SYSTEMS: CONSTITUTIONAL: No fever, no malaise, no fatigue. CARDIOVASCULAR: No chest pain, orthopnea, PND, no palpitations, no syncope. PULMONARY: Gets short of breath on exertion, complaining of cough , no hemoptysis. GASTROINTESTINAL: No diarrhea, no nausea, no vomiting, no abdominal pain. NEUROLOGICAL: No headaches, no weakness, no numbness. PHYSICAL EXAMINATION: GENERAL: The patient is alert and oriented x3, not in any acute distress. Well developed, well nourished. HEENT: Pupils are round and equally reacting to light. EOMI. No scleral icterus. No conjunctival pallor. Normocephalic, atraumatic. No pharyngeal erythema. No thyromegaly. CARDIOVASCULAR: S1 and S2 present. No murmurs, rubs, or gallops. PULMONARY: Coarse breath sounds bilaterally, no wheeze, rhonchi ABDOMEN: Soft, nontender, nondistended, normoactive bowel sounds. No palpable organomegaly. MUSCULOSKELETAL: No joint swelling or deformity. EXTREMITIES: No cyanosis, clubbing, or pedal edema. NEUROLOGICAL: Gross neurological examination did not reveal any focal deficits. SKIN: No rashes. Assessment and plan Acute COPD exacerbation Acute tracheobronchitis Acute on chronic hypoxic respiratory failure requiring oxygen 4 L via nasal cannula at home Mild hyperkalemia on admission Hyperglycemia with uncontrolled diabetes type 2 with steroids contributing Hypertension Hyperlipidemia Diabetes type 2 insulin-dependent Obstructive sleep apnea not on CPAP at home Bilateral peripheral neuropathy Previous history of smoking DVT prophylaxis with heparin subcu Plan: Continue oxygen supplementation Aggressive bronchopulmonary hygiene Pro amadou Was normal, DC Levaquin Continue IV steroids with methylprednisolone 60 mg every 6 hourly Continue breathing treatments Patient will be continued on insulin regimen and titrate dose as needed for better blood sugar control. Follow-up on pulmonary recommendations Objective - Vital Signs Vital signs: Vital Signs Temp 97.7 F 05/06/22 07:00 Pulse 94 05/06/22 11:49 Resp 16 05/06/22 07:00 BP 151/80 05/06/22 07:00 Pulse Ox 97 05/06/22 08:05 FiO2 Intake & Output 05/05/22 05/06/22 05/06/22 18:59 06:59 18:59 Intake Total 1305 180 Balance 1305 180 Intake: Oral 1305 180 Other: Voiding Method Toilet # Voids 2 2 - Labs CBC & Chem 7: 05/06/22 05:16 05/06/22 05:16 Labs: Abnormal Lab Results - Last 24 Hours (Table) 10/03/22 10/03/22 10/03/22 Range/Units 13:19 16:53 19:44 WBC (4.50-10.00) X 10*3/uL RBC (4.40-5.60) X 10*6/uL Hgb (13.0-17.0) g/dL Hct (39.6-50.0) % Immature Gran # (0.00-0.04) X 10*3/uL Neutrophils # (1.80-7.70) X 10*3/uL Eosinophils # (0.04-0.35) X 10*3/uL Carbon Dioxide (20.0-27.5) mmol/L Anion Gap (10.00-18.00) mmol/L BUN (9.0-27.0) mg/dL BUN/Creatinine Ratio (12.00-20.00) Ratio Glucose (70-110) mg/dL POC Glucose (mg/dL) 354 H 375 H 371 H (70-110) mg/dL 05/05/22 05/06/22 05/06/22 Range/Units 20:58 05:16 05:16 WBC 16.94 H (4.50-10.00) X 10*3/uL RBC 6.16 H (4.40-5.60) X 10*6/uL Hgb 17.3 H (13.0-17.0) g/dL Hct 52.7 H (39.6-50.0) % Immature Gran # 0.15 H (0.00-0.04) X 10*3/uL Neutrophils # 15.10 H (1.80-7.70) X 10*3/uL Eosinophils # 0 L (0.04-0.35) X 10*3/uL Carbon Dioxide 30.0 H (20.0-27.5) mmol/L Anion Gap 9.00 L (10.00-18.00) mmol/L BUN 28.8 H (9.0-27.0) mg/dL BUN/Creatinine Ratio 28.80 H (12.00-20.00) Ratio Glucose 389 H (70-110) mg/dL POC Glucose (mg/dL) 337 H (70-110) mg/dL 05/06/22 05/06/22 Range/Units 07:27 12:13 WBC (4.50-10.00) X 10*3/uL RBC (4.40-5.60) X 10*6/uL Hgb (13.0-17.0) g/dL Hct (39.6-50.0) % Immature Gran # (0.00-0.04) X 10*3/uL Neutrophils # (1.80-7.70) X 10*3/uL Eosinophils # (0.04-0.35) X 10*3/uL Carbon Dioxide (20.0-27.5) mmol/L Anion Gap (10.00-18.00) mmol/L BUN (9.0-27.0) mg/dL BUN/Creatinine Ratio (12.00-20.00) Ratio Glucose (70-110) mg/dL POC Glucose (mg/dL) 333 H 290 H (70-110) mg/dL Microbiology - Last 24 Hours (Table) 05/02/22 18:35 Blood Culture - Preliminary Blood No Growth after 72 hours 05/02/22 18:20 Blood Culture - Preliminary Blood No Growth after 72 hours
[2022-05-06 17:01] LABS: Glucose,Whole Blood 317 mg/dL (70-110)
[2022-05-06 20:44] LABS: Glucose,Whole Blood 344 mg/dL (70-110)
[2022-05-06] MEDS: INSULIN DETEMIR (LEVEMIR) 100 UNIT/ML SYR SQ SCH (20:56)
[2022-05-06] MEDS: MONTELUKAST 10 MG TAB PO SCH (20:57)
[2022-05-06] MEDS: ATORVASTATIN 20 MG TAB PO SCH (20:57)
[2022-05-07 04:14] LABS: Glucose,Whole Blood 332 mg/dL (70-110)
[2022-05-07] MEDS: methylPREDNISolone SOD SUCCI 125 MG/2 ML VIAL IV SCH ×2 (05:40→13:07)
[2022-05-07 07:48] LABS: Glucose,Whole Blood 280 mg/dL (70-110)
[2022-05-07] MEDS: IPRATROPIUM-ALBUTEROL 3 ML NEB INHALATION SCH ×2 (07:59→12:20)
[2022-05-07] MEDS: BUDESONIDE 1 MG/2 ML NEBU INHALATION SCH (07:59)
[2022-05-07] MEDS: FORMOTEROL FUMARATE 20 MCG/2 ML NEBU INHALATION SCH (07:59)
[2022-05-07] MEDS: HEPARIN SODIUM,PORCINE/PF 5,000 UNIT/0.5 ML SYRINGE SQ SCH (08:17)
[2022-05-07] MEDS: amLODIPine 10 MG TAB PO SCH (08:18)
[2022-05-07] MEDS: INSULIN ASPART (NovoLOG) 100 UNIT/ML VIAL SQ SCH ×4 (08:18→13:08)
[2022-05-07] MEDS: PANTOPRAZOLE 40 MG TABLET PO SCH (08:31)
[2022-05-07 08:37] VITALS: RESP 18
[2022-05-07 09:14] LABS: Basophils # (A) 0.03 X 10*3/uL (0.00-0.10); Basophils % (A) 0.2 %; Eosinophils # (A) 0 X 10*3/uL (0.04-0.35); Eosinophils % (A) 0 %; HCT 53.9 % (39.6-50.0); HGB 17.7 g/dL (13.0-17.0); Immature Grans, Automated 0.8 %; Lymphocytes # (A) 1.09 X 10*3/uL (0.90-5.00); Lymphocytes % (A) 6.4 %; MCH 27.7 pg (27.0-32.0); MCHC 32.8 g/dL (32.0-37.0); MCV 84.2 fL (80.0-97.0); Mean Platelet Volume 10.3 fL (9.5-12.2); Monocytes # (A) 0.54 X 10*3/uL (0.20-1.00); Monocytes % (A) 3.2 %; NRBC Per 100 WBC 0 /100 WBCS (0.0-0.0); Neutrophils # (A) 15.25 X 10*3/uL (1.80-7.70); Neutrophils % (A) 89.4 %; Platelet Count 330 X 10*3/uL (140-440); RDW 14.3 % (11.5-14.5); WBC 17.04 X 10*3/uL (4.50-10.00)
[2022-05-07 09:51] LABS: African American GFR (CKD) 92.4 (60.0-200.0); Anion Gap 8.8 mmol/L (10.00-18.00); BUN/Creat Ratio 28.2 Ratio (12.00-20.00); Blood Urea Nitrogen 28.2 mg/dL (9.0-27.0); Calcium 9.2 mg/dL (8.7-10.3); Carbon Dioxide 32.2 mmol/L (20.0-27.5); Non-African American GFR(CKD) 79.7 (60.0-200.0); Potassium 5.5 mmol/L (3.5-5.5)
--- NOTE | 2022-05-07 11:45 | P.PN ---
Subjective Progress Note Date: 05/07/22 This is a 61-year-old white male with known history of severe COPD, gold stage IV, FEV1 of 28%, FEV1/FVC is 46%. patient used to be a heavy smoker in the past, presently he has very minimal smoking history. Patient is also known to have history of obstructive sleep apnea, maintained on CPAP Last time I saw this patient in the office was back in November of 2021, and he was advised to remain on prednisone at 5 mg daily along with other many bronchodilators including DuoNeb updrafts 4 times a day and when necessary he is also maintained on Trelegy Ellipta 1 puff daily. Patient has done fairly well considering his severe COPD and again his last office visit was in November of 2021. Patient presented to the ER yesterday with mostly few days history of increased shortness of breath, cough wheezing. Cough is dry cough, nonproductive. Patient felt very congested, he denies any recent exposure to any patient with COVID-19 infection, patient tested himself at home and he tested negative he was also tested again during this ER visit and he tested negative again. Chest x-ray on this admission showed no evidence of infiltrates. Patient was noted to be quite dyspneic, he was placed on 3 L nasal cannula admitted and this consult was initiated. CBC showed a bit of leukocytosis with WBC count of 15.4 his electrolytes were normal renal profile was normal blood sugar was 28 and 50. Again sow virus PCR was not detected. The patient is seen today 05/05/2022 in follow-up on the regular medical floor. He is currently sitting up at the bedside. Awake and alert in no acute distress. Breathing a bit easier today compared to yesterday. He still has a dry nonproductive cough. Still dyspneic with conversation. Dyspneic with exertion. He is maintaining O2 saturation in the 90s on 3 L/m per nasal cannula. He's been afebrile. Hemodynamically stable. He's been maintained on Symbicort, DuoNeb inhalations, IV Solu-Medrol. Antibiotics in the form of Levaquin. Heparin for DVT prophylaxis. White count 18.2. Hemoglobin 17.7. Sodium 132. Potassium 5.5. BUN 30. Creatinine 1.2. Glucose 480. ProBNP 30. The patient is seen today 05/06/2022 in follow-up on the regular medical floor. He is awake and alert in no acute distress. Sitting up in a chair at the bedside. Doing a bit better today compared to yesterday. Still not quite back to his baseline. Still quite diminished and moving little air. He is maintaining O2 saturations in the 90s on 3 L/m per nasal cannula. No IV fluids. He does utilize CPAP at home and is encouraged to bring his device in. Blood cultures reveal no growth. White count 16.9. Hemoglobin 17.3. Sodium 135. Potassium 5.5. BUN 28. Creatinine 1.0. Glucose 389. Pro-calcitonin 0.04. He is continued on Levaquin, DuoNeb inhalations, Pulmicort and Perforomist inhalations, IV Solu-Medrol, Singulair. Heparin for DVT prophylaxis. The patient is seen today 05/07/2022 in follow-up on the regular medical floor. He is currently sitting up in a chair at the bedside. Up ambulating in his room at times. Feeling back to his baseline. Less short of breath. Lots cough and congestion. He slept well. He is maintaining O2 saturations in the 90s on 3 L/m per nasal cannula. The cultures revealed no growth. White count 17.0. Hemoglobin 17.7. Sodium 137. Potassium 5.5. BUN 28. Creatinine 1.0. Glucose 364. He is continued on DuoNeb inhalations, Pulmicort and Perforomist inhalations, IV Solu-Medrol. Objective - Vital Signs Vital signs: Vital Signs Temp 98.2 F 05/07/22 07:40 Pulse 96 05/07/22 08:25 Resp 18 05/07/22 07:40 BP 177/82 05/07/22 07:40 Pulse Ox 94 L 05/07/22 07:40 FiO2 Intake & Output 05/06/22 05/07/22 05/07/22 18:59 06:59 18:59 Intake Total 298 Balance 298 Intake: Oral 298 Other: Voiding Method Toilet # Voids 1 2 - Exam GENERAL EXAM: Alert, obese 61-year-old male, in a chair at the bedside, on 3 L nasal cannula, fairly comfortable in no apparent distress. HEAD: Normocephalic. EYES: Normal reaction of pupils, equal size. NOSE: Clear with pink turbinates. THROAT: No erythema or exudates. NECK: No masses, no JVD. CHEST: No chest wall deformity. LUNGS: Equal air entry with bilateral end expiratory wheeze. Diminished. CVS: S1 and S2 normal with no audible murmur, regular rhythm. ABDOMEN: No hepatosplenomegaly, normal bowel sounds, no guarding or rigidity. SPINE: No scoliosis or deformity SKIN: No rashes CENTRAL NERVOUS SYSTEM: No focal deficits, tone is normal in all 4 extremities. EXTREMITIES: There is no peripheral edema. No clubbing, no cyanosis. Peripheral pulses are intact. - Labs CBC & Chem 7: 05/07/22 06:09 05/07/22 06:09 Labs: Abnormal Lab Results - Last 24 Hours (Table) 05/06/22 05/06/22 05/06/22 Range/Units 12:13 17:00 20:43 WBC (4.50-10.00) X 10*3/uL RBC (4.40-5.60) X 10*6/uL Hgb (13.0-17.0) g/dL Hct (39.6-50.0) % Immature Gran # (0.00-0.04) X 10*3/uL Neutrophils # (1.80-7.70) X 10*3/uL Eosinophils # (0.04-0.35) X 10*3/uL Carbon Dioxide (20.0-27.5) mmol/L Anion Gap (10.00-18.00) mmol/L BUN (9.0-27.0) mg/dL BUN/Creatinine Ratio (12.00-20.00) Ratio Glucose (70-110) mg/dL POC Glucose (mg/dL) 290 H 317 H 344 H (70-110) mg/dL 05/07/22 05/07/22 05/07/22 Range/Units 04:13 06:09 06:09 WBC 17.04 H (4.50-10.00) X 10*3/uL RBC 6.40 H (4.40-5.60) X 10*6/uL Hgb 17.7 H (13.0-17.0) g/dL Hct 53.9 H (39.6-50.0) % Immature Gran # 0.13 H (0.00-0.04) X 10*3/uL Neutrophils # 15.25 H (1.80-7.70) X 10*3/uL Eosinophils # 0 L (0.04-0.35) X 10*3/uL Carbon Dioxide 32.2 H (20.0-27.5) mmol/L Anion Gap 8.80 L (10.00-18.00) mmol/L BUN 28.2 H (9.0-27.0) mg/dL BUN/Creatinine Ratio 28.20 H (12.00-20.00) Ratio Glucose 364 H (70-110) mg/dL POC Glucose (mg/dL) 332 H (70-110) mg/dL 05/07/22 Range/Units 07:46 WBC (4.50-10.00) X 10*3/uL RBC (4.40-5.60) X 10*6/uL Hgb (13.0-17.0) g/dL Hct (39.6-50.0) % Immature Gran # (0.00-0.04) X 10*3/uL Neutrophils # (1.80-7.70) X 10*3/uL Eosinophils # (0.04-0.35) X 10*3/uL Carbon Dioxide (20.0-27.5) mmol/L Anion Gap (10.00-18.00) mmol/L BUN (9.0-27.0) mg/dL BUN/Creatinine Ratio (12.00-20.00) Ratio Glucose (70-110) mg/dL POC Glucose (mg/dL) 280 H (70-110) mg/dL Microbiology - Last 24 Hours (Table) 05/02/22 18:35 Blood Culture - Preliminary Blood No Growth after 96 hours 05/02/22 18:20 Blood Culture - Preliminary Blood No Growth after 96 hours Assessment and Plan Assessment: Acute exacerbation of COPD, associate with acute tracheobronchitis, but no dana r-cut evidence of pneumonia. Pro calcitonin 0.04 Acute on chronic hypoxic respiratory failure, patient is on home O2. Benign essential hypertension Obstructive sleep apnea syndrome, on CPAP at home Bilateral peripheral neuropathy Ex-smoker Dyslipidemia Type 2 diabetes History of COVID-19 pneumonia back in November of 2021. History of psoriasis. Plan: The patient was seen and evaluated Labs and medications reviewed Cleared for discharge from the pulmonary standpoint Complete prednisone taper starting at 40 mg 4 days Continue his home oxygen and pulmonary medications Keep his appointment with Dr. Meadows 05/12/2022 I have personally seen and examined the patient, performed the documentation and the assessment and plan as written. Number of minutes spent on the visit: 10.
[2022-05-07 12:09] LABS: Glucose,Whole Blood 413 mg/dL (70-110)
--- NOTE | 2022-05-07 12:55 | P.DS ---
Providers Date of admission: 05/06/22 07:32 Expected date of discharge: 05/07/22 Attending physician: Sophy Stanton Consults: 05/04/22 08:59 Consult Physician Routine Consulting Provider: Roxi Hernandez Consult Reason/Comments: copd exac Do you want consulting provider notified?: Yes Primary care physician: Dioni Espinal [facility] Course: Discharge diagnoses; Acute COPD exacerbation Acute tracheobronchitis Acute on chronic hypoxic respiratory failure requiring oxygen 4 L via nasal cannula at home Mild hyperkalemia on admission Hyperglycemia with uncontrolled diabetes type 2 with steroids contributing Hypertension Hyperlipidemia Diabetes type 2 insulin-dependent Obstructive sleep apnea not on CPAP at home Bilateral peripheral neuropathy Previous history of smoking DVT prophylaxis with heparin subcu Plan: Being discharged on oral prednisone 40 mg daily for 4 days. Outpatient follow with PCP and pulmonology Hospital course; Patient is a 61-year-old male with a known history of COPD on oxygen at 4 L via nasal cannula presents to ER with complaints of worsening shortness of breath for the past 3 days. Patient also was complaining of cough with nonproductive sputum. Feels very congested in the chest. Denies any fever or chills. No nausea vomiting abdominal diarrhea. No chest pain.Patient states that he was very hypoxic and pulse ox went down to 80s at home. Denies any recent illnesses. Chest x-ray showed no acute cardiopulmonary disease. No change. EKG showed sinus tachycardia. Laboratory showed WBC 15.3 hemoglobin 17.4 and platelets 302 Sodium 138 potassium 5.3 chloride 100 bicarb is 23 BUN 23 and creatinine 0.88 and blood sugar is 250 Liver enzymes are not elevated Coronavirus PCR not detected. 05/04/2022 Patient is currently sitting on a regular rate. Still having shortness of breath and exertional dyspnea. Bilateral diminished sounds and wheezing on exam. No complaint of chest pain. No nausea vomiting or abdominal diarrhea. Blood sugar is elevated. Patient did complain of cough this morning without any sputum production. No headache or dizziness or lightheadedness. Patient is being controlled on IV steroids, DuoNeb's and oxygen supplementation. 05/05/2022 Patient is currently sitting in the chair. Still having exertional dyspnea. Bilateral diminished air entry on exam. Breathing status is better compared yesterday. Cough without any sputum production. No nausea vomiting abdominal diarrhea. Afebrile. Currently requiring 3 L oxygen via nasal cannula. Patient is being current on IV Solu-Medrol, Symbicort and Pulmicort/performers was added. Pulmonary is on board. Laboratories reviewed. Patient is hyperglycemic and is being placed on insulin regimen. Levemir dose increased to 27 units at bedtime. Continue to titrate insulin dose. Patient is also on NovoLog 15 units 3 times daily AC. 05/06/22. Patient seen and examined. Labs reviewed. Vital signs stable. Continues to be on 3 oxygen. states he gets short of breath on exertion. Complaining of cough. 05/07/22. Patient seen and examined. Patient stated that he feels back to his baseline. His O2 requirements remain the same as at home. Pulmonology has cleared the patient for discharge. PHYSICAL EXAMINATION: GENERAL: The patient is alert and oriented x3, not in any acute distress. Well developed, well nourished. HEENT: Pupils are round and equally reacting to light. EOMI. No scleral icterus. No conjunctival pallor. Normocephalic, atraumatic. No pharyngeal erythema. No thyromegaly. CARDIOVASCULAR: S1 and S2 present. No murmurs, rubs, or gallops. PULMONARY: Coarse breath sounds bilaterally, no wheeze ABDOMEN: Soft, nontender, nondistended, normoactive bowel sounds. No palpable organomegaly. MUSCULOSKELETAL: No joint swelling or deformity. EXTREMITIES: No cyanosis, clubbing, or pedal edema. NEUROLOGICAL: Gross neurological examination did not reveal any focal deficits. SKIN: No rashes. Patient Condition at Discharge: Stable Plan - Discharge Summary New Discharge Prescriptions: New predniSONE [Deltasone] 40 mg PO DAILY 4 Days #8 tab Sodium Chloride 0.65% Nasal [Deep Sea (Saline)] 2 spray NASAL QID PRN ml PRN Reason: Congestion Continue Atorvastatin Calcium [Lipitor] 20 mg PO HS INSULIN ASPART (NovoLOG) [NovoLOG (formulary)] 15 unit SQ AC-TID #1 vial Tiotropium 18 Mcg/Puff [Spiriva] 1 cap INHALATION RT-DAILY Albuterol Inhaler [Ventolin Hfa Inhaler] 2 puff INHALATION RT-Q4H PRN PRN Reason: Shortness Of Breath Or Wheezing Fluticasone Propion/Salmeterol [Advair 500-50 Diskus] 1 puff INHALATION RT- BID Zinc 50 mg PO DAILY Turmeric/Cinnamon 1 tab PO DAILY Montelukast [Singulair] 10 mg PO HS amLODIPine [Norvasc] 10 mg PO DAILY lisinopriL [Zestril] 10 mg PO DAILY Ipratropium-Albuterol Nebulize [Duoneb 0.5 mg-3 mg/3 ml Soln] 3 ml INHALATION RT-QID PRN PRN Reason: Shortness Of Breath Insulin Detemir (Levemir) [Levemir] 20 unit SQ HS Ascorbic Acid [Vitamin C] 1,000 mg PO DAILY metFORMIN HCL 1,000 mg PO BID Discharge Medication List Atorvastatin Calcium [Lipitor] 20 mg PO HS 07/30/19 [History] INSULIN ASPART (NovoLOG) [NovoLOG (formulary)] 15 unit SQ AC-TID #1 vial 06/05/20 [Rx] Albuterol Inhaler [Ventolin Hfa Inhaler] 2 puff INHALATION RT-Q4H PRN 11/25/20 [History] Ascorbic Acid [Vitamin C] 1,000 mg PO DAILY 11/25/20 [History] Fluticasone Propion/Salmeterol [Advair 500-50 Diskus] 1 puff INHALATION RT-BID 11/25/20 [History] Insulin Detemir (Levemir) [Levemir] 20 unit SQ HS 11/25/20 [History] Ipratropium-Albuterol Nebulize [Duoneb 0.5 mg-3 mg/3 ml Soln] 3 ml INHALATION RT-QID PRN 11/25/20 [History] Tiotropium 18 Mcg/Puff [Spiriva] 1 cap INHALATION RT-DAILY 11/25/20 [History] Zinc 50 mg PO DAILY 11/25/20 [History] Montelukast [Singulair] 10 mg PO HS 05/02/22 [History] Turmeric/Cinnamon 1 tab PO DAILY 05/02/22 [History] amLODIPine [Norvasc] 10 mg PO DAILY 05/02/22 [History] lisinopriL [Zestril] 10 mg PO DAILY 05/02/22 [History] metFORMIN HCL 1,000 mg PO BID 05/02/22 [History] Sodium Chloride 0.65% Nasal [Deep Sea (Saline)] 2 spray NASAL QID PRN ml 05/07/22 [Rx] predniSONE [Deltasone] 40 mg PO DAILY 4 Days #8 tab 05/07/22 [Rx] Follow up Appointment(s)/Referral(s): Janie Wheatley MD [Primary Care Provider] - 1-2 days Luis Mcclure MD [STAFF PHYSICIAN] - 1 Week
[2022-05-07 15:35] VITALS: BP 182/69; PULSE 104; TEMP 97.7
== END 2022-05-07 16:25 | disposition home or self-care (01) | DRG 190 ==
LOC: EC 15:54 → 6NMEDSUR 18:34 → OBSVTOIN 05-06 07:32
PROVIDERS: ADMIT Internal Medicine; ATTEND Internal Medicine
DX: J44.0 Chronic obstructive pulmonary disease with (acute) lower respiratory infection (principal); J96.21 Acute and chronic respiratory failure with hypoxia; J20.9 Acute bronchitis, unspecified; J44.1 Chronic obstructive pulmonary disease with (acute) exacerbation; E11.42 Type 2 diabetes mellitus with diabetic polyneuropathy; E87.5 Hyperkalemia; E11.65 Type 2 diabetes mellitus with hyperglycemia; L40.9 Psoriasis, unspecified; I10 Essential (primary) hypertension; Z20.822 Contact with and (suspected) exposure to COVID-19; E78.5 Hyperlipidemia, unspecified; Z79.4 Long term (current) use of insulin; G47.33 Obstructive sleep apnea (adult) (pediatric); Z87.891 Personal history of nicotine dependence; Z86.16 Personal history of COVID-19; Z87.01 Personal history of pneumonia (recurrent); Z79.52 Long term (current) use of systemic steroids; Z79.84 Long term (current) use of oral hypoglycemic drugs; Z79.899 Other long term (current) drug therapy; Z82.5 Family history of asthma and other chronic lower respiratory diseases; Z99.81 Dependence on supplemental oxygen; Z87.820 Personal history of traumatic brain injury; Z87.81 Personal history of (healed) traumatic fracture
CPT/HCPCS: 36415; 71046; 80048; 80053; 83605; 83880; 84145; 84484; 85025; 85610; 85730; 87040; 87502; 87635; 93005; 94640; 94760; 96374; 96375; 99285

== ENCOUNTER 2023-07-08 17:10 | Observation (INO) | payer MEDICARE, OTHER ==
[2023-07-08] MEDS ORDERED: IPRATROPIUM-ALBUTEROL 3 ML NEB INHALATION STA (17:51)
[2023-07-08] MEDS ORDERED: MAGNESIUM SULFATE-D5W PMX 1 GM in DEXTROSE/WATER 1 100ML.BAG IVPB STA (17:51)
[2023-07-08] MEDS ORDERED: methylPREDNISolone SOD SUCCI 125 MG/2 ML VIAL IV STA (17:51)
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
[2023-07-08 18:34] LABS: Basophils % (A) 0 %; Eosinophils % (A) 0 %; HGB 15.5 gm/dL (13.0-17.5); Lymphocytes # (A) 0.9 k/uL (1.0-4.8); Lymphocytes % (A) 6 %; MCH 28.6 pg (25.0-35.0); MCV 86.7 fL (80.0-100.0); Mean Platelet Volume 7.9; Monocytes # (A) 0.4 k/uL (0-1.0); Monocytes % (A) 3 %; Neutrophils # (A) 14.4 k/uL (1.3-7.7); Neutrophils % (A) 91 %; Platelet Count 365 k/uL (150-450); RBC 5.43 m/uL (4.30-5.90); RDW 13.7 % (11.5-15.5); WBC 15.8 k/uL (3.8-10.6)
--- NOTE | 2023-07-08 18:37 | XR ---
EXAMINATION TYPE: XR chest 2V DATE OF EXAM: 07/08/2023 COMPARISON: 05/02/2022 INDICATION: Difficulty breathing COPD short of breath TECHNIQUE: Frontal and lateral views of the chest are obtained. FINDINGS: The heart size is enlarged. The pulmonary vasculature is normal. The minimal subsegmental atelectasis may be at the lung bases. Lungs otherwise appear clear. IMPRESSION: 1. Suggestion of mild subsegmental atelectasis bilateral lung bases. Follow-up can be performed as cl inically indicated
[2023-07-08 18:47] LABS: INR 0.9 (<1.2); Partial Thromboplastin Time 23.1 sec (22.0-30.0); Prothrombin Time 9.9 sec (10.0-12.5)
[2023-07-08 18:52] LABS: ALT 47 U/L (4-49); AST 36 U/L (17-59); African American GFR (CKD) >90 (>60 ml/min/1.73 sqM); Albumin 4.2 g/dL (3.5-5.0); Alkaline Phosphatase 81 U/L (38-126); Anion Gap 12 mmol/L; Blood Urea Nitrogen 18 mg/dL (9-20); Calcium 9.4 mg/dL (8.4-10.2); Carbon Dioxide 29 mmol/L (22-30); Chloride 95 mmol/L (98-107); Glucose 373 mg/dL (74-99); Non-African American GFR(CKD) 86 (>60 ml/min/1.73 sqM); Potassium 5.5 mmol/L (3.5-5.1); Sodium 136 mmol/L (137-145); Total Bilirubin 0.5 mg/dL (0.2-1.3); Total Protein 7.6 g/dL (6.3-8.2)
[2023-07-08 18:59] LABS: NT-Pro-B-Type Natriuretic Pept 97 pg/mL
[2023-07-08] MEDS ORDERED: SODIUM CHLORIDE 0.9% 1,000 ML IV ONE (19:31)
[2023-07-08] MEDS ORDERED: NALOXONE 0.4 MG/ML 1 ML VIAL IV PRN (19:53)
[2023-07-08] MEDS ORDERED: ACETAMINOPHEN TAB 325 MG TAB PO PRN (19:53)
[2023-07-08] MEDS ORDERED: IPRATROPIUM-ALBUTEROL 3 ML NEB INHALATION PRN (19:56)
[2023-07-09] MEDS ORDERED: methylPREDNISolone SOD SUCCI 40 MG/ML 1 ML VIAL IV SCH ×2 (02:00→08:00)
[2023-07-09] MEDS ORDERED: DEXTROSE 50% SYRINGE 50 ML IVP PRN ×2 (02:18)
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
[2023-07-09 02:34] LABS: Glucose,Whole Blood 434 mg/dL (70-110)
[2023-07-09] MEDS: methylPREDNISolone SOD SUCCI 125 MG/2 ML VIAL IV SCH ×3 (05:23→17:45)
[2023-07-09 07:46] LABS: Glucose,Whole Blood 367 mg/dL (70-110)
[2023-07-09] MEDS: INSULIN ASPART (NovoLOG) 100 UNIT/ML VIAL SQ SCH ×6 (07:59→20:38)
[2023-07-09] MEDS: SYMBICORT 160-4.5 MCG INHALER INHALATION SCH ×2 (09:25→18:24)
[2023-07-09] MEDS: IPRATROPIUM-ALBUTEROL 3 ML NEB INHALATION SCH ×4 (09:25→18:23)
[2023-07-09] MEDS: metFORMIN 500 MG TAB PO SCH ×2 (10:07→20:38)
[2023-07-09] MEDS: amLODIPine 10 MG TAB PO SCH (10:07)
[2023-07-09] MEDS: lisinopriL 10 MG TAB PO SCH (10:07)
[2023-07-09] MEDS ORDERED: IPRATROPIUM-ALBUTEROL 3 ML NEB INHALATION SCH (12:00)
[2023-07-09 12:20] LABS: Glucose,Whole Blood 347 mg/dL (70-110)
[2023-07-09 15:36] LABS: Basophils # (A) 0.03 X 10*3/uL (0.00-0.10); Basophils % (A) 0.2 %; Eosinophils # (A) 0 X 10*3/uL (0.04-0.35); Eosinophils % (A) 0 %; HCT 45.8 % (39.6-50.0); HGB 14.9 g/dL (13.0-17.0); Lymphocytes # (A) 1.14 X 10*3/uL (0.90-5.00); MCH 27.6 pg (27.0-32.0); MCHC 32.5 g/dL (32.0-37.0); MCV 84.8 FL (80.0-97.0); Mean Platelet Volume 10.9 FL (9.5-12.2); Monocytes # (A) 0.45 X 10*3/uL (0.20-1.00); Monocytes % (A) 2.8 %; NRBC Per 100 WBC 0 X 10*3/uL (0.00-0.01); Neutrophils # (A) 14.58 X 10*3/uL (1.80-7.70); Neutrophils % (A) 89.6 %; Platelet Count 400 X 10*3/uL (140-440); RDW 13.6 % (11.5-14.5); WBC 16.26 X 10*3/uL (4.50-10.00)
[2023-07-09 16:43] LABS: Blood Urea Nitrogen 18.6 mg/dL (9.0-27.0); Calcium 9.9 mg/dL (8.7-10.3); Carbon Dioxide 28.3 mmol/L (21.6-31.8); Chloride 96 mmol/L (96-109); Glucose 422 mg/dL (70-110); Potassium 5.3 mmol/L (3.5-5.5); Sodium 137 mmol/L (135-145)
[2023-07-09 17:07] LABS: Glucose,Whole Blood 336 mg/dL (70-110)
[2023-07-09] MEDS ORDERED: NON FORMULARY DRUG (Fluticasone Propion/Salmeterol [Wixela 500-50 Inhub] 1 EACH Blst.W.Dev INHALATION SCH (20:00)
[2023-07-09 20:29] LABS: Glucose,Whole Blood 402 mg/dL (70-110)
[2023-07-09] MEDS: ATORVASTATIN 20 MG TAB PO SCH (20:38)
[2023-07-09] MEDS: MONTELUKAST 10 MG TAB PO SCH (20:38)
[2023-07-09] MEDS ORDERED: INSULIN DETEMIR (LEVEMIR) 100 UNIT/ML SYR SQ SCH (21:00)
[2023-07-10] MEDS: methylPREDNISolone SOD SUCCI 125 MG/2 ML VIAL IV SCH ×4 (00:43→18:36)
--- NOTE | 2023-07-10 06:11 | HP ---
HISTORY AND PHYSICAL CHIEF COMPLAINT: Shortness of breath. HISTORY OF PRESENT ILLNESS: This is first known admission for this -[id number] man with diabetes, hypertension, and COPD who presented to the emergency room in severe shortness of breath. He thinks it started with a cold 2-3 days ago. REVIEW OF SYSTEMS: He denies headaches, focal neurologic problems, chest pain, cough, hemoptysis, abdominal pain, vomiting, etc. Past medical history, family history and personal and social histories show that he is not allergic to any medication. MEDICATIONS: He is on, 1. Atorvastatin. 2. Lisinopril. 3. Amlodipine. 4. Montelukast. 5. Metformin. 6. Levemir. 7. NovoLog insulin. 8. Wixela inhaler along with Spiriva. SOCIAL HISTORY: He states he does not smoke any longer. PHYSICAL EXAMINATION: VITAL SIGNS: Blood pressure 130/76 with a pulse of 98, respirations are 36. He is afebrile. GENERAL: Appeared to be overweight and in respiratory distress. HEENT: Head, ears, eyes, nose, mouth and throat are normal. CHEST: Demonstrated very poor breath sounds throughout with inspiratory and expiratory wheezing and scattered rales. CARDIAC: Revealed tachycardia. ABDOMEN: Protuberant, soft and nontender. EXTREMITIES: Normal neurologically. He is intact. DIAGNOSES: He is admitted to the hospital with diagnoses, 1. Exacerbation of chronic obstructive pulmonary disease. 2. Hypertension. 3. Diabetes. PLAN: 1. Bed rest. 2. IV fluids. 3. IV and inhaled steroids. 4. Updrafts. 5. Monitor blood sugars. MMODL / IJN: [id number] /
[2023-07-10 08:10] LABS: Glucose,Whole Blood 320 mg/dL (70-110)
[2023-07-10] MEDS: INSULIN ASPART (NovoLOG) 100 UNIT/ML VIAL SQ SCH ×7 (08:38→20:15)
[2023-07-10] MEDS: lisinopriL 10 MG TAB PO SCH (08:39)
[2023-07-10] MEDS: amLODIPine 10 MG TAB PO SCH (08:39)
[2023-07-10] MEDS: metFORMIN 500 MG TAB PO SCH ×2 (08:39→20:15)
[2023-07-10] MEDS: SYMBICORT 160-4.5 MCG INHALER INHALATION SCH ×2 (09:14→20:08)
[2023-07-10] MEDS: IPRATROPIUM-ALBUTEROL 3 ML NEB INHALATION SCH ×4 (09:14→20:08)
[2023-07-10 12:47] LABS: Glucose,Whole Blood 285 mg/dL (70-110)
[2023-07-10] MEDS: LOSARTAN 50 MG TAB PO SCH (13:34)
[2023-07-10 17:17] LABS: Glucose,Whole Blood 293 mg/dL (70-110)
--- NOTE | 2023-07-10 18:42 | P.PN ---
Subjective Progress Note Date: 07/10/23 I am seeing this patient in consultation today 07/09/2023 in the emergency room for suspected acute COPD exacerbation. Patient is a 63-year-old white male with known past medical history significant for COPD, obstructive sleep apnea maintained on CPAP, diabetes mellitus, hypertension, hyperlipidemia, and previous tobacco dependence. Patient does follow in the pulmonary office with Dr. Hernandez for his very severe oxygen and steroid-dependent COPD. He has an FEV1 28% of predicted. He is maintained on 3 L/m nasal cannula at home. He utilizes a combination of Wixela, Spiriva, and Duonebs around the clock to manage his COPD. he quit smoking approximately 7 years ago. Patient states on Thursday, while watching the football game, he started becoming more short of breath. This has progressively worsened. States that his shortness of breath is mostly on exertion. He also endorses a cough with clear sputum. Denies any fevers, chills, chest pain. Denies any sick contacts. Chest x-ray on arrival did not show any acute cardiopulmonary process. There was some bibasilar atelectasis, no obvious infiltrates or evidence of pneumonia. There is stable cardiomegaly without any significant pulmonary vascular congestion. Patient is currently sitting up at the edge of the bed, on 4 L/m nasal cannula, in no acute distress. Afebrile. Vital signs are stable. BP is normotensive. Heart rhythm appears sinus tachycardia bedside monitor with a rate of 106 bpm. CBC demonstrated some leukocytosis with a WBC count of 15.8, hemoglobin 15.5, hematocrit 47, platelets 365. BMP shows sodium 136, potassium 5.5, chloride 95, serum bicarb 29, BUN 18, creatinine 0.93, glucose 373. Troponin 0.027. NT proBNP not elevated. Negative for influenza, RSV, COVID-19. He will be monitored on the cardiac stepdown unit. Today's evaluation of 07/10/2023, the patient is feeling better. Is on oxygen at 4 L and is also using his CPAP at a pressure of 8 cm of water. Doing well. No specific complaints. Less bronchospastic and wheezing on today's evaluation. His blood work was noted. He has some hyperglycemia related to systemic steroids. He is on insulin for sliding scale coverage. No altered mentation. No chest pain. No pleurisy. No hemoptysis. Objective - Vital Signs Vital signs: Vital Signs Temp 98 F 07/10/23 13:13 Pulse 88 07/10/23 15:42 Resp 18 07/10/23 13:13 BP 147/68 07/10/23 13:13 Pulse Ox 98 07/10/23 13:13 FiO2 Intake & Output 07/09/23 07/10/23 07/10/23 18:59 06:59 18:59 Intake Total 236 Balance 236 Intake: Oral 236 Other: Voiding Method Toilet # Voids 2 1 5 # Bowel Movements 1 - Exam GENERAL EXAM: Alert, obese 63-year-old white male, comfortable in no apparent distress. HEAD: Normocephalic and atraumatic EYES: Normal reaction of pupils, equal size. NOSE: Clear with pink turbinates. THROAT: No erythema or exudates. NECK: No masses, no JVD. CHEST: No chest wall deformity. LUNGS: Diminished lung sounds throughout with scattered rhonchi. No crackles, wheeze, or focal dullness. On 4 L/m nasal cannula. No conversational dyspnea or accessory muscle use at rest.. CVS: S1 and S2 normal with no audible murmur, regular rhythm. No extra heart sounds ABDOMEN: Obese abdomen, no hepatosplenomegaly, active bowel sounds, no guarding or rigidity. SPINE: No scoliosis or deformity SKIN: Generalized erythemic maculopapular rash CENTRAL NERVOUS SYSTEM: No focal deficits, tone is normal in all 4 extremities. EXTREMITIES: There is no peripheral edema, clubbing, or cyanosis. Peripheral pulses are intact. - Labs CBC & Chem 7: 07/09/23 10:28 07/09/23 10:28 Labs: Abnormal Lab Results - Last 24 Hours (Table) 07/09/23 07/10/23 07/10/23 Range/Units 20:27 08:08 12:46 POC Glucose (mg/dL) 402 H 320 H 285 H (70-110) mg/dL 07/10/23 Range/Units 17:16 POC Glucose (mg/dL) 293 H (70-110) mg/dL Assessment and Plan Assessment: Acute exacerbation of COPD, chest x-ray shows no obvious acute infiltrates or evidence of pneumonia. Negative for influenza, RSV, COVID-19 Acute on chronic hypoxemic respiratory failure, secondary to above Leukocytosis Benign essential hypertension Hyperlipidemia Type 2 diabetes mellitus, complicated by diabetic neuropathy Obstructive sleep apnea, on CPAP at home Obesity, with a BMI of 36.2 kg/m History of psoriasis Plan: Continue same management Titrate oxygen Continue IV Solu-Medrol He is currently on Levemir insulin 30 units along with 35 units of NovoLog with meals and a sliding scale coverage Continue CPAP overnight We'll continue to follow. We'll start tapering steroids as of tomorrow. Will likely need another CPAP unit or preferably a BiPAP and this can be arranged for him on an outpatient basis
[2023-07-10] MEDS ORDERED: OXYMETAZOLINE 0.05% NASL SPRAY 1 SPRAY BOTTLE NASAL STA (18:43)
[2023-07-10 20:02] LABS: Glucose,Whole Blood 437 mg/dL (70-110)
[2023-07-10] MEDS: MONTELUKAST 10 MG TAB PO SCH (20:15)
[2023-07-10] MEDS: ATORVASTATIN 20 MG TAB PO SCH (20:15)
[2023-07-10] MEDS ORDERED: INSULIN DETEMIR (LEVEMIR) 100 UNIT/ML SYR SQ ONE (21:00)
[2023-07-10] MEDS ORDERED: traZODone HCL 100 MG TAB PO SCH (21:00)
[2023-07-11] MEDS: methylPREDNISolone SOD SUCCI 125 MG/2 ML VIAL IV SCH ×3 (01:01→12:11)
[2023-07-11 06:07] LABS: Glucose,Whole Blood 336 mg/dL (70-110)
[2023-07-11] MEDS: INSULIN ASPART (NovoLOG) 100 UNIT/ML VIAL SQ SCH ×4 (06:11→14:10)
[2023-07-11] MEDS ORDERED: INSULIN DETEMIR (LEVEMIR) 100 UNIT/ML SYR SQ SCH (07:00)
[2023-07-11 07:32] VITALS: BP 159/77; RESP 16; TEMP 98
[2023-07-11] MEDS: IPRATROPIUM-ALBUTEROL 3 ML NEB INHALATION SCH ×2 (08:58→12:22)
[2023-07-11] MEDS: SYMBICORT 160-4.5 MCG INHALER INHALATION SCH (08:58)
[2023-07-11] MEDS: LOSARTAN 50 MG TAB PO SCH (09:00)
[2023-07-11] MEDS: amLODIPine 10 MG TAB PO SCH (09:01)
[2023-07-11] MEDS: metFORMIN 500 MG TAB PO SCH (09:01)
--- NOTE | 2023-07-11 09:14 | PN ---
PROGRESS NOTE DATE OF SERVICE: 07/09/2023 CHIEF COMPLAINT: Exacerbation of COPD. HISTORY OF PRESENT ILLNESS: This gentleman is doing fairly well, but he is still very tight and wheezy. He has had no chest pain. He has not vomited. PHYSICAL EXAMINATION: CHEST: Breath sounds are severely diminished bilaterally with inspiratory and expiratory wheezing and a prolonged expiratory phase. There are rales throughout. CARDIAC: Normal. ABDOMEN: Protuberant, soft. EXTREMITIES: Normal. IMPRESSION: Exacerbation of COPD. PLAN: Continue with current program. He is improving. MMODL / IJN: [id number] /
[2023-07-11 09:28] VITALS: PULSE 86
[2023-07-11 12:18] LABS: Glucose,Whole Blood 299 mg/dL (70-110)
--- NOTE | 2023-07-11 15:59 | P.PN ---
Subjective Progress Note Date: 07/11/23 I am seeing this patient in consultation today 07/09/2023 in the emergency room for suspected acute COPD exacerbation. Patient is a 63-year-old white male with known past medical history significant for COPD, obstructive sleep apnea maintained on CPAP, diabetes mellitus, hypertension, hyperlipidemia, and previous tobacco dependence. Patient does follow in the pulmonary office with Dr. Hernandez for his very severe oxygen and steroid-dependent COPD. He has an FEV1 28% of predicted. He is maintained on 3 L/m nasal cannula at home. He utilizes a combination of Wixela, Spiriva, and Duonebs around the clock to manage his COPD. he quit smoking approximately 7 years ago. Patient states on Thursday, while watching the football game, he started becoming more short of breath. This has progressively worsened. States that his shortness of breath is mostly on exertion. He also endorses a cough with clear sputum. Denies any fevers, chills, chest pain. Denies any sick contacts. Chest x-ray on arrival did not show any acute cardiopulmonary process. There was some bibasilar atelectasis, no obvious infiltrates or evidence of pneumonia. There is stable cardiomegaly without any significant pulmonary vascular congestion. Patient is currently sitting up at the edge of the bed, on 4 L/m nasal cannula, in no acute distress. Afebrile. Vital signs are stable. BP is normotensive. Heart rhythm appears sinus tachycardia bedside monitor with a rate of 106 bpm. CBC demonstrated some leukocytosis with a WBC count of 15.8, hemoglobin 15.5, hematocrit 47, platelets 365. BMP shows sodium 136, potassium 5.5, chloride 95, serum bicarb 29, BUN 18, creatinine 0.93, glucose 373. Troponin 0.027. NT proBNP not elevated. Negative for influenza, RSV, COVID-19. He will be monitored on the cardiac stepdown unit. Today's evaluation of 07/10/2023, the patient is feeling better. Is on oxygen at 4 L and is also using his CPAP at a pressure of 8 cm of water. Doing well. No specific complaints. Less bronchospastic and wheezing on today's evaluation. His blood work was noted. He has some hyperglycemia related to systemic steroids. He is on insulin for sliding scale coverage. No altered mentation. No chest pain. No pleurisy. No hemoptysis. On today's evaluation of 07/11/2023, the patient is improved significantly. The patient is ambulating. The patient states that his overall respiratory status is back to his baseline and the patient is ready to go home. He will need a new CPAP machine at the later stage of this can be arranged for him on outpatient basis.. The patient has no other new complaints otherwise for now. Objective - Vital Signs Vital signs: Vital Signs Temp 98.0 F 07/11/23 07:00 Pulse 86 07/11/23 09:11 Resp 16 07/11/23 07:00 BP 159/77 07/11/23 07:00 Pulse Ox 96 07/11/23 07:00 FiO2 Intake & Output 07/10/23 07/11/23 07/11/23 18:59 06:59 18:59 Intake Total 180 222 Balance 180 222 Intake: Oral 180 222 Other: # Voids 5 2 # Bowel Movements 1 - Exam GENERAL EXAM: Alert, obese 63-year-old white male, comfortable in no apparent distress. HEAD: Normocephalic and atraumatic EYES: Normal reaction of pupils, equal size. NOSE: Clear with pink turbinates. THROAT: No erythema or exudates. NECK: No masses, no JVD. CHEST: No chest wall deformity. LUNGS: Diminished lung sounds throughout with scattered rhonchi. No crackles, wheeze, or focal dullness. On 4 L/m nasal cannula. No conversational dyspnea or accessory muscle use at rest.. CVS: S1 and S2 normal with no audible murmur, regular rhythm. No extra heart sounds ABDOMEN: Obese abdomen, no hepatosplenomegaly, active bowel sounds, no guarding or rigidity. SPINE: No scoliosis or deformity SKIN: Generalized erythemic maculopapular rash CENTRAL NERVOUS SYSTEM: No focal deficits, tone is normal in all 4 extremities. EXTREMITIES: There is no peripheral edema, clubbing, or cyanosis. Peripheral pulses are intact. - Labs CBC & Chem 7: 07/09/23 10:28 07/09/23 10:28 Labs: Abnormal Lab Results - Last 24 Hours (Table) 07/10/23 07/10/23 07/11/23 Range/Units 17:16 20:01 06:05 POC Glucose (mg/dL) 293 H 437 H 336 H (70-110) mg/dL 07/11/23 Range/Units 12:17 POC Glucose (mg/dL) 299 H (70-110) mg/dL Assessment and Plan Assessment: Acute exacerbation of COPD, chest x-ray shows no obvious acute infiltrates or evidence of pneumonia. Negative for influenza, RSV, COVID-19 Acute on chronic hypoxemic respiratory failure, secondary to above Leukocytosis Benign essential hypertension Hyperlipidemia Type 2 diabetes mellitus, complicated by diabetic neuropathy Obstructive sleep apnea, on CPAP at home Obesity, with a BMI of 36.2 kg/m History of psoriasis Plan: We'll discharge patient home today Prednisone burst taper Albuterol about treatments [id number] CPAP therapy Outpatient follow-up Will likely need another CPAP unit or preferably a BiPAP and this can be arrang ed for him on an outpatient basis
--- NOTE | 2023-07-11 19:28 | DS ---
DISCHARGE SUMMARY CHIEF COMPLAINT: Difficulty breathing. HISTORY OF PRESENT ILLNESS AND PHYSICAL EXAMINATION: Details of this man's history and physical can be found in the initial workup. LABORATORY STUDIES: While he was in the hospital, he had laboratory studies, details of which can be found in the laboratory section of his chart. COURSE IN THE HOSPITAL: After admission, he was placed on bedrest, started on intravenous fluids and IV and inhaled steroids as well as updrafts. His chest slowly improved. His blood sugars are quite high and these were being addressed. He was doing well enough and was felt he could be discharged on the and go home on many of his usual medications and regular activity and diet. He will be given Medrol Dosepak. He will be seen in the office in several days. FINAL DIAGNOSES: 1. Exacerbation of chronic obstructive pulmonary disease. 2. Uncontrolled type 2 insulin-dependent diabetes mellitus. OPERATIONS: None. CONSULTATIONS: None. He is improved. MMSHLOMO / ROSAN: [id number] /
--- NOTE | 2023-07-11 19:44 | PN ---
PROGRESS NOTE DATE OF SERVICE: 07/10/2023 CHIEF COMPLAINT: COPD. HISTORY OF PRESENT ILLNESS: This gentleman is doing fairly well, but his sugars were high. His breathing is improving. He is still wheezy and short of breath with ambulation. PHYSICAL EXAMINATION: Breath sounds are improving. He still has scattered rales and rhonchi, but they are somewhat better and he is moving more here. Cardiac exam is normal. IMPRESSION: 1. Exacerbation of chronic obstructive pulmonary disease. 2. Uncontrolled diabetes. PLAN: Increase insulin management and continue to monitor his COPD. Possibly home tomorrow. MMODL / IJN: [id number] /
[2023-07-12] MEDS ORDERED: methylPREDNISolone 4 MG TAB TAPER PO SCH (09:00)
== END 2023-07-11 14:10 | disposition home or self-care (01) ==
LOC: EC 17:10 → 6NMEDSUR 19:55
PROVIDERS: ADMIT Family Medicine; ATTEND Family Medicine
DX: J44.1 Chronic obstructive pulmonary disease with (acute) exacerbation (principal); E11.65 Type 2 diabetes mellitus with hyperglycemia; J96.21 Acute and chronic respiratory failure with hypoxia; K21.9 Gastro-esophageal reflux disease without esophagitis; E78.5 Hyperlipidemia, unspecified; I10 Essential (primary) hypertension; G47.33 Obstructive sleep apnea (adult) (pediatric); D72.829 Elevated white blood cell count, unspecified; E11.40 Type 2 diabetes mellitus with diabetic neuropathy, unspecified; L40.9 Psoriasis, unspecified; E66.9 Obesity, unspecified; Z68.36 Body mass index [BMI] 36.0-36.9, adult; Z20.822 Contact with and (suspected) exposure to COVID-19; Z87.891 Personal history of nicotine dependence; Z99.81 Dependence on supplemental oxygen; Z79.899 Other long term (current) drug therapy; Z79.84 Long term (current) use of oral hypoglycemic drugs; Z79.4 Long term (current) use of insulin; Z79.51 Long term (current) use of inhaled steroids
CPT/HCPCS: 96376 ×4; 96372 ×4; 96361; 96365; 96366; 96375; 99285; 36415; 94640 ×6; 93005; 83880; 80053; 80048; 83605; 84484; 85025 ×2; 85610; 85730; 87636; 71046; G0378 ×4; J2930 ×4; J3475

== ENCOUNTER 2025-02-09 11:45 | Observation (INO) | payer MEDICARE ==
[2025-02-09] MEDS: methylPREDNISolone SOD SUCCI 125 MG/2 ML VIAL IV STA (12:20)
[2025-02-09 12:27] LABS: Basophils # (A) 0.10 10*3/uL (0.00-0.10); Basophils % (A) 0.6 %; Eosinophils # (A) 0.31 10*3/uL (0.04-0.35); Eosinophils % (A) 1.8 %; HCT 39.5 % (39.6-50.0); HGB 13.3 g/dL (13.0-17.0); Lymphocytes # (A) 2.59 10*3/uL (0.90-5.00); Lymphocytes % (A) 14.8 %; MCH 28.5 pg (27.0-32.0); MCHC 33.7 g/dL (32.0-37.0); MCV 84.6 fL (80.0-97.0); Monocytes # (A) 1.53 10*3/uL (0.20-1.00); Monocytes % (A) 8.8 %; Neutrophils # (A) 12.83 10*3/uL (1.80-7.70); Neutrophils % (A) 73.5 %; Platelet Count 372 10*3/uL (140-440); RBC 4.67 10*6/uL (4.40-5.60); RDW 12.7 % (11.5-14.5); WBC 17.45 10*3/uL (4.50-10.00)
[2025-02-09] MEDS: IPRATROPIUM-ALBUTEROL 3 ML NEB INHALATION STA (12:31)
[2025-02-09 12:40] LABS: ALT 47 U/L (4-49); AST 29 U/L (17-59); African American GFR (CKD) 46 (>60 ml/min/1.73 sqM); Albumin 4.2 g/dL (3.5-5.0); Alkaline Phosphatase 88 U/L (38-126); Anion Gap 13 mmol/L; Blood Urea Nitrogen 38 mg/dL (9-20); Calcium 9.3 mg/dL (8.4-10.2); Carbon Dioxide 32 mmol/L (22-30); Chloride 93 mmol/L (98-107); Glucose 273 mg/dL (74-99); Magnesium 1.7 mg/dL (1.6-2.3); Non-African American GFR(CKD) 40 (>60 ml/min/1.73 sqM); Potassium 4.4 mmol/L (3.5-5.1); Sodium 138 mmol/L (137-145); Total Protein 7.2 g/dL (6.3-8.2)
[2025-02-09 12:45] LABS: INR 0.9 (<1.2); Partial Thromboplastin Time 22.2 sec (22.0-30.0); Prothrombin Time 10.3 sec (10.0-12.5)
[2025-02-09 12:48] LABS: NT-Pro-B-Type Natriuretic Pept 31 pg/mL
--- NOTE | 2025-02-09 13:26 | XR ---
EXAMINATION TYPE: XR chest 2V DATE OF EXAM: 02/09/2025 1:11 PM COMPARISON: Multiple radiographs, with the most recent on 02/24/2024 TECHNIQUE: XR chest 2V Frontal and lateral views of the chest. CLINICAL INDICATION:Male, 64 years old with history of difficulty breathing; FINDINGS: Lungs/Pleura: There is no evidence of pleural effusion, focal consolidation, or pneumothorax. Pulmonary vascularity: Unremarkable. Heart/mediastinum: Cardiomediastinal silhouette is unremarkable. Atherosclerotic calcifications are seen in the aorta. Musculoskeletal: No acute osseous pathology. IMPRESSION: No acute cardiopulmonary disease/process. [facility], , 02/09/2025 1:24 PM
[2025-02-09] MEDS ORDERED: NALOXONE 0.4 MG/ML 1 ML VIAL IVP PRN (13:49)
[2025-02-09] MEDS ORDERED: IPRATROPIUM-ALBUTEROL 3 ML NEB INHALATION PRN (13:49)
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
[2025-02-09] MEDS: IPRATROPIUM-ALBUTEROL 3 ML NEB INHALATION SCH (14:55)
[2025-02-09 17:42] LABS: Glucose,Whole Blood 353 mg/dL (70-110)
[2025-02-09] MEDS: methylPREDNISolone SOD SUCCI 125 MG/2 ML VIAL IV SCH (17:56)
[2025-02-09] MEDS: INSULIN LISPRO (HumaLOG) 100 UNIT/ML 10 mL VL SQ SCH (17:56)
[2025-02-09] MEDS: SYMBICORT 160-4.5 MCG INHALER INHALATION SCH (18:41)
--- NOTE | 2025-02-09 19:54 | HP ---
HISTORY AND PHYSICAL CHIEF COMPLAINT: Difficulty breathing. HISTORY OF PRESENT ILLNESS: This gentleman presented to the emergency room, has very short of breath. He has COPD and this has been exacerbated. He was in the office yesterday and was recommended that he go, but he demurred and stated that if he got worse he would come to the emergency room, which he has done. REVIEW OF SYSTEMS: He denies chest pain, confusion, hemoptysis, fever and chills, etc. Review of systems is otherwise unremarkable. PAST MEDICAL HISTORY, FAMILY HISTORY, PERSONAL AND SOCIAL HISTORY: Reveal he is not allergic to any medication. He is on; 1. Montelukast. 2. Chlorthalidone. 3. Metformin. 4. Losartan. 5. Amlodipine. 6. Gabapentin. 7. Trazodone. 8. Wixela. 9. Vicodin. 10.Lasix. 11.Prednisone. 12.Tresiba. He states that he no longer smokes. PHYSICAL EXAMINATION: VITAL SIGNS: Blood pressure 120/70 with pulse 79, respirations of 36. GENERAL: Appeared to be obese and he was short of breath. SKIN: Dry. HEAD, EARS, EYES, NOSE, MOUTH AND THROAT: Normal except for dry mucous membranes. Neck veins cannot be assessed. CHEST: Demonstrated poor breath sounds throughout with inspiratory and expiratory wheezing and scattered rales and occasional rhonchi. CARDIAC: Demonstrated sinus tachycardia. ABDOMEN: Protuberant, soft and nontender. EXTREMITIES: Unremarkable. IMPRESSION: 1. Exacerbation of chronic obstructive pulmonary disease. 2. Type 2 insulin-dependent diabetes mellitus. PLAN: 1. Bedrest. 2. IV fluids. 3. IV and inhaled steroids. 4. Updrafts. MMODL / IJN: [id number] /
[2025-02-09] MEDS ORDERED: NON FORMULARY DRUG (Fluticasone Propion/Salmeterol [Wixela 500-50 Inhub] 1 EACH Blst.W.Dev INHALATION SCH (20:00)
[2025-02-09] MEDS: ATORVASTATIN 20 MG TAB PO SCH (21:34)
[2025-02-09] MEDS: DOXYCYCLINE 100 MG TABLET PO SCH (21:35)
[2025-02-09] MEDS: MONTELUKAST 10 MG TAB PO SCH (21:35)
[2025-02-09] MEDS: metFORMIN 500 MG TAB PO SCH (21:35)
[2025-02-09] MEDS: LACTATED RINGERS 1,000 ML IV SCH (23:36)
[2025-02-10 07:46] LABS: Glucose,Whole Blood 333 mg/dL (70-110)
[2025-02-10] MEDS: INSULIN GLARGINE (LANTUS) 100 UNIT/ML SYR SQ SCH (08:35)
[2025-02-10] MEDS: amLODIPine 10 MG TAB PO SCH (08:36)
[2025-02-10] MEDS: LOSARTAN 50 MG TAB PO SCH (08:36)
[2025-02-10] MEDS: IPRATROPIUM-ALBUTEROL 3 ML NEB INHALATION SCH (12:07)
[2025-02-10 12:52] LABS: Glucose,Whole Blood 262 mg/dL (70-110)
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
[2025-02-10 17:34] LABS: Glucose,Whole Blood 344 mg/dL (70-110)
--- NOTE | 2025-02-11 01:32 | PN ---
PROGRESS NOTE DATE OF SERVICE: 02/10/2025 CHIEF COMPLAINT: Exacerbation of COPD. HISTORY OF PRESENT ILLNESS: This gentleman is doing a little bit better. He is on his BiPAP. He is having no chest pain. He has had no fever chills. PHYSICAL EXAMINATION: GENERAL: He appears to be edematous. CHEST: Demonstrates poor breath sounds with scattered wheezing, rales, and rhonchi. CARDIAC: Normal. ABDOMEN: Soft, nontender. EXTREMITIES: There is no edema. IMPRESSION: Exacerbation of chronic obstructive pulmonary disease. PLAN: 1. Continue with current pulmonary program. 2. D-dimer and BNP. MMODL / IJN: [id number] /
[2025-02-11 05:44] LABS: Glucose,Whole Blood 328 mg/dL (70-110)
[2025-02-11] MEDS: INSULIN GLARGINE (LANTUS) 100 UNIT/ML SYR SQ SCH (06:43)
--- NOTE | 2025-02-11 11:15 | P.PN ---
Subjective Progress Note Date: 02/11/25 Principal diagnosis: COPD exacerbation. This is a pleasant 64-year-old male patient with a known history of hypertension, hyperlipidemia, diabetes mellitus and severe oxygen dependent chronic obstructive pulmonary disease with an FEV1 value 25% of predicted. He also has obstructive sleep apnea and utilizes home CPAP. He presented here to the emergency room yesterday from our office after seeing Dr. Hernandez. He was found to be quite short of breath. Chest x-ray revealed no acute cardiopulmonary process. White count 17.4. Hemoglobin 13.3. Platelets 372. Sodium 138. Potassium 4.4. Bicarb 32. BUN 38. Creatinine 1.74. Glucose 262. Troponin negative x 1. proBNP 31. Is seen today in consultation in the emergency department. He is currently sitting up on the stretcher. Awake and alert in mild respiratory distress. He did bring his home CPAP machine and util ized it last night. He is currently maintaining O2 saturations in the 90s on 3 L/min per nasal cannula. He has been afebrile. Hemodynamically stable. Progress note dated February 11, 2025. 64-year-old male who was seen in consultation yesterday. He was seen initially in the emergency department. Today he is seen in room 379. He is getting LR at 100 cc an hour. He is on 3 L nasal cannula, when he is not using his home CPAP device. The patient is feeling a bit better. His procalcitonin level was normal at 0.12. His antibiotic is discontinued. No new labs today other than a glucose of 328. Objective - Vital Signs Vital signs: Vital Signs Temp 98.3 F 02/11/25 04:00 Pulse 106 H 02/11/25 09:49 Resp 20 02/11/25 04:00 BP 151/71 02/11/25 04:00 Pulse Ox 90 L 02/11/25 09:34 FiO2 Intake & Output 02/10/25 02/11/25 02/11/25 18:59 06:59 18:59 Intake Total 700 118 Output Total 550 Balance -550 700 118 Weight 104.4 kg Intake: Intake, IV Titration 700 Amount Lactated Ringers 1,000 ml 700 @ 100 mls/hr IV .Q10H [facility] Rx#:[id number] Oral 118 Output: Urine 550 Other: Voiding Method Toilet Urinal # Voids 2 - Exam No acute distress, oriented 3. Currently on 3 L. No kae respiratory distress. HEENT examination is grossly unremarkable. Mucous membranes are moist. No oral lesions. Neck supple. Full range of motion. No adenopathy thyromegaly or neck vein distention. Cardiovascular examination reveals regular rhythm rate. S1-S2 normal. No S3 or S4. No discernible murmur noted. Heart sounds are distant. Lungs reveal lateral rhonchi, and expiratory wheezes. No crackles. Breath sounds are diminished throughout. Breath sounds are equal bilaterally. Abdomen soft bowel sounds are heard. No masses or tenderness. Extremities are intact. No cyanosis clubbing or edema. Skin is without rash or lesion. Neurologic examination is brief but nonfocal. - Labs CBC & Chem 7: 02/09/25 12:20 02/09/25 12:20 Labs: Abnormal Lab Results - Last 24 Hours (Table) 02/10/25 02/10/25 02/11/25 Range/Units 12:51 17:33 05:42 POC Glucose (mg/dL) 262 H 344 H 328 H (70-110) mg/dL Microbiology - Last 24 Hours (Table) 02/09/25 23:16 Blood Culture - Preliminary Blood Assessment and Plan Assessment: Acute on chronic hypoxemic respiratory failure secondary to an acute exacerbation of chronic obstructive pulmonary disease. Severe oxygen dependent chronic obstructive pulmonary disease with an FEV1 below 25% of predicted. Obstructive sleep apnea, maintained on CPAP. Former smoker. Diabetes mellitus. Hyperlipidemia. Hypertension. Plan: Plan dated February 11, 2025. The patient is seen today in room 379. Yesterday, he was seen in the emergency department. He continues on appropriate medications clued a updrafts, Symbicort, and Solu-Medrol. Because his procalcitonin level was normal, and he was not really manifesting any signs or symptoms of infection, his doxycycline is discontinued. We will continue to follow make recommendations along the way. His overall prognosis remains guarded. Dictation was produced using [employer] software. Please excuse any grammatical, word or spelling errors. Time with Patient: Less than 30
[2025-02-11 11:22] LABS: Glucose,Whole Blood 250 mg/dL (70-110)
[2025-02-11] MEDS: GABAPENTIN 300 MG CAP PO SCH (13:33)
[2025-02-11 16:27] LABS: Glucose,Whole Blood 206 mg/dL (70-110)
[2025-02-11 19:57] LABS: Glucose,Whole Blood 252 mg/dL (70-110)
[2025-02-12 06:16] LABS: Glucose,Whole Blood 287 mg/dL (70-110)
--- NOTE | 2025-02-12 11:43 | P.PN ---
Subjective Progress Note Date: 02/12/25 This is a pleasant 64-year-old male patient with a known history of hypertension, hyperlipidemia, diabetes mellitus and severe oxygen dependent chronic obstructive pulmonary disease with an FEV1 value 25% of predicted. He also has obstructive sleep apnea and utilizes home CPAP. He presented here to the emergency room yesterday from our office after seeing Dr. Hernandez. He was found to be quite short of breath. Chest x-ray revealed no acute cardiopulmonary process. White count 17.4. Hemoglobin 13.3. Platelets 372. Sodium 138. Potassium 4.4. Bicarb 32. BUN 38. Creatinine 1.74. Glucose 262. Troponin negative x 1. proBNP 31. Is seen today in consultation in the emergency department. He is currently sitting up on the stretcher. Awake and alert in mild respiratory distress. He did bring his home CPAP machine and utilized it last night. He is currently maintaining O2 saturations in the 90s on 3 L/min per nasal cannula. He has been afebrile. Hemodynamically stable. Progress note dated February 11, 2025. 64-year-old male who was seen in consultation yesterday. He was seen initially in the emergency department. Today he is seen in room 379. He is getting LR at 100 cc an hour. He is on 3 L nasal cannula, when he is not using his home CPAP device. The patient is feeling a bit better. His procalcitonin level was normal at 0.12. His antibiotic is discontinued. No new labs today other than a glucose of 328. The patient is seen today February 12, 2025 in follow-up on the selective care unit. He is currently sitting up in a chair at the bedside. Awake and alert in no acute distress. Maintaining good O2 saturations in the 90s on 3 L/min per nasal cannula. He is feeling better today compared to yesterday. Not quite back to his baseline. Still somewhat bronchospastic and wheezing. He remains on DuoNeb inhalations, Symbicort, Singulair and Solu-Medrol. Procalcitonin was negative at 0.12. Glucose 287. He remains on Lantus and Humalog sliding scale. Remains on Glucophage. Objective - Vital Signs Vital signs: Vital Signs Temp 99.4 F 02/12/25 09:20 Pulse 96 02/12/25 11:21 Resp 20 02/12/25 09:20 BP 153/72 02/12/25 09:20 Pulse Ox 98 02/12/25 09:20 FiO2 Intake & Output 02/11/25 02/12/25 02/12/25 18:59 06:59 18:59 Intake Total 2174 360 Output Total 200 Balance 2174 -200 360 Weight 107.2 kg Intake: Intake, IV Titration 1100 Amount Lactated Ringers 1,000 ml 1100 @ 100 mls/hr IV .Q10H [facility] Rx#:[id number] Oral 1074 360 Output: Urine 200 Other: Voiding Method Toilet Toilet Toilet Urinal Urinal Urinal # Voids 4 2 - Exam GENERAL EXAM: Alert, pleasant 64-year-old male, up in a chair, on 3 L nasal cannula, comfortable in no apparent distress. HEAD: Normocephalic. EYES: Normal reaction of pupils, equal size. NOSE: Clear with pink turbinates. THROAT: No erythema or exudates. NECK: No masses, no JVD. CHEST: No chest wall deformity. LUNGS: Equal air entry with bilateral end expiratory wheeze, few scattered rhonchi. CVS: S1 and S2 normal with no audible murmur, regular rhythm. ABDOMEN: No hepatosplenomegaly, normal bowel sounds, no guarding or rigidity. SPINE: No scoliosis or deformity SKIN: No rashes CENTRAL NERVOUS SYSTEM: No focal deficits, tone is normal in all 4 extremities. EXTREMITIES: There is 1+ peripheral edema. No clubbing, no cyanosis. Peripheral pulses are intact. - Labs CBC & Chem 7: 02/09/25 12:20 02/09/25 12:20 Labs: Abnormal Lab Results - Last 24 Hours (Table) 02/11/25 02/11/25 02/12/25 Range/Units 16:23 19:55 06:14 POC Glucose (mg/dL) 206 H 252 H 287 H (70-110) mg/dL Microbiology - Last 24 Hours (Table) 02/09/25 23:16 Blood Culture - Preliminary Blood Assessment and Plan Assessment: Acute on chronic hypoxemic respiratory failure secondary to an acute exacerbation of chronic obstructive pulmonary disease Severe oxygen dependent chronic obstructive pulmonary disease with an FEV1 below 25% of predicted Obstructive sleep apnea maintained on CPAP Former smoker Diabetes mellitus Hyperlipidemia Hypertension Plan: The patient was seen and evaluated Labs and medications reviewed Continue DuoNeb inhalations Continue Symbicort Continue Solu-Medrol Continued on Singulair Titrate the FiO2 as tolerated We will continue to follow I have personally seen and examined the patient, performed the documentation and the assessment and plan as written. Number of minutes spent on the visit: 10 Dictation was produced using [employer] dictation software. Please excuse any grammatical, word or spelling errors.
[2025-02-12 12:06] LABS: Glucose,Whole Blood 176 mg/dL (70-110)
[2025-02-12] MEDS: predniSONE 20 MG TAB PO SCH (12:49)
[2025-02-12 16:49] LABS: Glucose,Whole Blood 148 mg/dL (70-110)
[2025-02-12 19:59] LABS: Glucose,Whole Blood 133 mg/dL (70-110)
[2025-02-13 05:58] LABS: Glucose,Whole Blood 262 mg/dL (70-110)
[2025-02-13] MEDS: INSULIN GLARGINE (LANTUS) 100 UNIT/ML SYR SQ SCH (07:44)
[2025-02-13 07:48] VITALS: TEMP 99.3
[2025-02-13 11:29] LABS: Glucose,Whole Blood 141 mg/dL (70-110)
[2025-02-13 11:43] VITALS: PULSE 90
[2025-02-13 14:18] VITALS: BP 169/69; RESP 16
--- NOTE | 2025-02-13 18:23 | P.PN ---
Subjective Progress Note Date: 02/13/25 This is a pleasant 64-year-old male patient with a known history of hypertension, hyperlipidemia, diabetes mellitus and severe oxygen dependent chronic obstructive pulmonary disease with an FEV1 value 25% of predicted. He also has obstructive sleep apnea and utilizes home CPAP. He presented here to the emergency room yesterday from our office after seeing Dr. Hernandez. He was found to be quite short of breath. Chest x-ray revealed no acute cardiopulmonary process. White count 17.4. Hemoglobin 13.3. Platelets 372. Sodium 138. Potassium 4.4. Bicarb 32. BUN 38. Creatinine 1.74. Glucose 262. Troponin negative x 1. proBNP 31. Is seen today in consultation in the emergency department. He is currently sitting up on the stretcher. Awake and alert in mild respiratory distress. He did bring his home CPAP machine and utilized it last night. He is currently maintaining O2 saturations in the 90s on 3 L/min per nasal cannula. He has been afebrile. Hemodynamically stable. Progress note dated February 11, 2025. 64-year-old male who was seen in consultation yesterday. He was seen initially in the emergency department. Today he is seen in room 379. He is getting LR at 100 cc an hour. He is on 3 L nasal cannula, when he is not using his home CPAP device. The patient is feeling a bit better. His procalcitonin level was normal at 0.12. His antibiotic is discontinued. No new labs today other than a glucose of 328. On 02/13/2025, the patient is being seen for a follow-up. The patient was hospitalized for increased shortness of breath consistent with COPD exacerbation. The patient is not evident COPD with an FEV1 25% of predicted and he has oxygen dependence regarding his COPD. He has also hypertension hyperlipidemia and obesity with a body mass index of 34.4. The patient has obstructive sleep apnea and home CPAP device. Clinically, the patient continues to improve. On today's evaluation, he remains on oxygen at 3 L. He also has a he is also on bronchodilators and systemic steroids. No new complaints. No altered mentation. No chest pain. The patient is being considered for discharge today. Obviously, he needs his CPAP to be updated. He has an older generation ResMed 10 CPAP unit which is quite noisy and malfunctioning. He is also using the Simplus full facemask. Objective - Vital Signs Vital signs: Vital Signs Temp 99.3 F 02/13/25 07:47 Pulse 90 02/13/25 11:43 Resp 18 02/13/25 07:47 BP 184/79 02/13/25 07:47 Pulse Ox 97 02/13/25 08:04 FiO2 Intake & Output 02/12/25 02/13/25 02/13/25 18:59 06:59 18:59 Intake Total 1800 Balance 1800 Weight 105.7 kg Intake: Oral 1800 Other: Voiding Method Toilet Toilet Toilet Urinal Urinal Urinal # Voids 4 2 - Exam GENERAL EXAM: Alert, pleasant 64-year-old male, up in a chair, on 3 L nasal cannula, comfortable in no apparent distress. HEAD: Normocephalic. EYES: Normal reaction of pupils, equal size. NOSE: Clear with pink turbinates. THROAT: No erythema or exudates. NECK: No masses, no JVD. CHEST: No chest wall deformity. LUNGS: Equal air entry with bilateral end expiratory wheeze, few scattered rh onchi. CVS: S1 and S2 normal with no audible murmur, regular rhythm. ABDOMEN: No hepatosplenomegaly, normal bowel sounds, no guarding or rigidity. SPINE: No scoliosis or deformity SKIN: No rashes CENTRAL NERVOUS SYSTEM: No focal deficits, tone is normal in all 4 extremities. EXTREMITIES: There is 1+ peripheral edema. No clubbing, no cyanosis. Peripheral pulses are intact. - Labs CBC & Chem 7: 02/09/25 12:20 02/09/25 12:20 Labs: Abnormal Lab Results - Last 24 Hours (Table) 02/12/25 02/12/25 02/13/25 Range/Units 16:39 19:57 05:57 POC Glucose (mg/dL) 148 H 133 H 262 H (70-110) mg/dL 02/13/25 Range/Units 11:27 POC Glucose (mg/dL) 141 H (70-110) mg/dL Microbiology - Last 24 Hours (Table) 02/09/25 23:16 Blood Culture - Preliminary Blood Assessment and Plan Plan: Acute on chronic hypoxemic respiratory failure secondary to an acute exacerbation of chronic obstructive pulmonary disease, clinically improving and the patient seems to be less short of breath and bronchospastic on today's evaluation. Severe oxygen dependent chronic obstructive pulmonary disease with an FEV1 below 25% of predicted Obstructive sleep apnea maintained on CPAP Former smoker Diabetes mellitus Hyperlipidemia Hypertension Plan: Clinically stable and the patient is improving currently on 3 L of oxygen nasal cannula Continue DuoNeb inhalations Continue Symbicort May discharge home on a prednisone burst taper. At same time, the patient will need to be monitored and followed up on an outpatient basis. He would obviously benefit from a new CPAP unit. Will offer him the Simplus full facemask. Rest of the treatment as per medicine. Home medication have been resumed. Will continue to follow. Possible discharge home today.
--- NOTE | 2025-02-14 05:06 | PN ---
PROGRESS NOTE DATE OF SERVICE: 02/11/2025 CHIEF COMPLAINT: Exacerbation of COPD. HISTORY OF PRESENT ILLNESS: This gentleman is slightly better, but he is still very short of breath and congested. He is on his BiPAP most of the time. PHYSICAL EXAMINATION: CHEST: Demonstrates poor breath sounds with inspiratory and expiratory wheezing and scattered rales and rhonchi. CARDIAC: Normal. ABDOMEN: Protuberant and soft. IMPRESSION: Exacerbation of chronic obstructive pulmonary disease. PLAN: Continue with current program as he is slowly improving. MMODL / IJN: [id number] /
--- NOTE | 2025-02-14 05:36 | PN ---
PROGRESS NOTE DATE OF SERVICE: 02/12/2025 CHIEF COMPLAINT: Exacerbation of COPD. HISTORY OF PRESENT ILLNESS: This gentleman is doing fairly well and breathing is improving a little bit each day. PHYSICAL EXAMINATION: LUNGS: Breath sounds are improved. There are fewer rales and there are fewer rhonchi. He still has expiratory wheezing. CARDIAC: Normal. IMPRESSION: Exacerbation of chronic obstructive pulmonary disease. PLAN: Continue with current program, and he can probably go home in a day or 2. MMODL / IJN: [id number] /
[2025-02-14] MEDS ORDERED: methylPREDNISolone 4 MG TAB TAPER PO SCH (09:00)
== END 2025-02-13 16:54 | disposition home or self-care (01) ==
LOC: EC 11:45 → 4SSUR 15:03 → 3SCARD 02-10 18:49
PROVIDERS: ADMIT Family Medicine; ATTEND Family Medicine
DX: J44.1 Chronic obstructive pulmonary disease with (acute) exacerbation (principal); J96.21 Acute and chronic respiratory failure with hypoxia; E11.9 Type 2 diabetes mellitus without complications; D72.829 Elevated white blood cell count, unspecified; G47.33 Obstructive sleep apnea (adult) (pediatric); I10 Essential (primary) hypertension; E78.5 Hyperlipidemia, unspecified; E66.9 Obesity, unspecified; Z68.34 Body mass index [BMI] 34.0-34.9, adult; Z79.84 Long term (current) use of oral hypoglycemic drugs; Z79.4 Long term (current) use of insulin; Z79.51 Long term (current) use of inhaled steroids; Z79.52 Long term (current) use of systemic steroids; Z79.899 Other long term (current) drug therapy; Z99.81 Dependence on supplemental oxygen; Z87.891 Personal history of nicotine dependence
CPT/HCPCS: 96376 ×5; 96361; 96374; 99285; 36415; 94640 ×10; 94760 ×4; 93005; 83880; 80053; 83605 ×2; 83735; 84484; 85025; 85610; 85730; 87040; 84145; 71046; G0378 ×6; J7512 ×2; J2919 ×4